=== PATIENT | male | born 1985 | race Caucasian/White ===

== ENCOUNTER → 2016-08-27 | Outpatient (CLI) | payer OTHER ==
[2016-08-27 13:37] LABS: BASO % 0.6 % (0.0-1.0); EOS # 0.4 K/mm3 (0.0-0.50); EOS % 7.4 % (0.0-3.0); LARGE UNSTAINED CELL # 0.1 K/mm3 (0.0-0.4); LARGE UNSTAINED CELL % 2.5 % (0.0-4.0); LYMPH # 2.2 K/mm3 (1.5-4.5); LYMPH % 36.7 % (24.0-44.0); MEAN CORPUSCULAR HEMOGLOBIN 29.5 pg (27.0-33.0); MEAN CORPUSCULAR HGB CONC 33.8 g/dl (32.0-36.5); MEAN CORPUSCULAR VOLUME 87.3 fl (80.0-96.0); MONO # 0.4 K/mm3 (0.0-0.8); MONO % 6.5 % (0.0-5.0); NEUTROPHILS # 2.6 K/mm3 (1.8-7.7); NEUTROPHILS % 46.4 % (36.0-66.0); PLATELET COUNT, AUTOMATED 208 k/mm3 (150-450); RED CELL DISTRIBUTION WIDTH 13.3 % (11.5-14.5); WHITE BLOOD COUNT 5.7 K/mm3 (4.0-10.0)
[2016-08-27 13:39] LABS: ALBUMIN/GLOBULIN RATIO 1.18 (1.00-1.93); ALKALINE PHOSPHATASE 122 U/L (45-117); ALT/SGPT 49 U/L (12-78); ANION GAP 7 MEQ/L (8-16); AST/SGOT 28 U/L (15-37); BILIRUBIN,TOTAL 0.3 MG/DL (0.2-1.0); BLOOD UREA NITROGEN 13 MG/DL (7-18); CARBON DIOXIDE LEVEL 26 MEQ/L (21-32); CHLORIDE LEVEL 107 MEQ/L (98-107); CREATININE FOR GFR 1.26 MG/DL (0.70-1.30); GLOMERULAR FILTRATION RATE > 60.0 (>60); GLUCOSE, FASTING 96 MG/DL (70-105); POTASSIUM SERUM 4.3 MEQ/L (3.5-5.1); SODIUM LEVEL 140 MEQ/L (136-145); TOTAL PROTEIN 7.4 GM/DL (6.4-8.2)
== END ==
LOC: M LAB 12:11
PROVIDERS: ATTEND Nurse Practitioner Family
DX: Z02.89 Encounter for other administrative examinations (principal)

== ENCOUNTER → 2016-10-02 | Outpatient (CLI) | payer OTHER ==
[2016-10-05 08:06] LABS: ALT 31 IU/L (0-55); GGT 54 IU/L (0-65); HAPTOGLOBIN 84 mg/dL (34-200); NECROINFLAM SCORE 0.13 (0.00-0.17); NECROINFLAMM GRADE A0-No activity (.); TOTAL BILIRUBIN 0.3 mg/dL (0.0-1.2)
[2016-10-07 00:30] LABS: HEPATITIS C QUANTITATION 192280 IU/mL (.); HEPATITIS C VIRUS GENOTYPE 3 (.)
== END ==
LOC: M WUC 12:30
PROVIDERS: ATTEND Nurse Practitioner Family
DX: B18.2 Chronic viral hepatitis C (principal); B16.9 Acute hepatitis B without delta-agent and without hepatic coma; B15.9 Hepatitis A without hepatic coma

== ENCOUNTER → 2016-10-30 | Outpatient (REF) | payer MEDICAID, OTHER ==
[2016-10-30 16:11] LABS: ALBUMIN 3.9 GM/DL (3.2-5.2); ALBUMIN/GLOBULIN RATIO 1.15 (1.00-1.93); ALKALINE PHOSPHATASE 100 U/L (45-117); ALT/SGPT 65 U/L (12-78); AST/SGOT 44 U/L (15-37); BILIRUBIN,DIRECT 0.1 MG/DL (0.0-0.2); BILIRUBIN,TOTAL 0.3 MG/DL (0.2-1.0); TOTAL PROTEIN 7.3 GM/DL (6.4-8.2)
[2016-10-31 10:16] LABS: HEPATITIS B SURFACE ANTIBODY POSITIVE (POSITIVE)
[2016-11-04 14:18] LABS: HEPATITIS C QUANTITATION 22580 IU/mL (.)
== END ==
LOC: M SFHCPLAZ 13:29
PROVIDERS: ATTEND Internal Medicine Infectious Disease
DX: B18.2 Chronic viral hepatitis C (principal)

== ENCOUNTER 2016-12-11 08:53 | Emergency (ER) | payer MEDICAID, OTHER ==
[~2016-12-11] VITALS: Ht 177.8 cm; Wt 77.2 kg
[2016-12-11] MEDS ORDERED: SUBO8MIS SL (09:08)
[2016-12-11] MEDS ORDERED: TRAZ-136 (09:08)
[2016-12-11] MEDS ORDERED: SERT-155 PO (09:08)
[2016-12-11] MEDS ORDERED: BUPR15TA (09:08)
[2016-12-11] MEDS ORDERED: KETOROLAC 60 MG/2 ML VIAL (J1885) IM ONE (09:45)
[2016-12-11 10:32] VITALS: BP 123/56
[2016-12-11] MEDS ORDERED: ZANA4TAB PO (10:34)
[2016-12-11] MEDS ORDERED: PRED20TA PO (10:34)
[2016-12-11] MEDS ORDERED: MOBI4TAB PO (10:34)
--- NOTE | 2016-12-11 13:57 | REP ---
Lumbar spine series: Five views. History: Trauma. Findings: Five views of the lumbar spine and demonstrate preserved vertebral body heights and normal alignment. No fracture or collapse is seen. Disc space narrowing at L4-5 is seen mild in degree. Pedicles and posterior elements are intact. No fracture or spondylolysis seen. No spondylolisthesis noted. Sacrum and SI joints are unremarkable. There is a bone island in the right iliac bone. Psoas margins are symmetric. Impression: Minimal narrowing of the L4-5 disc. Otherwise unremarkable lumbar spine radiographs. No fracture seen. Signed by Jack Saldana MD 12/11/2016 02:02 P
== END 2016-12-11 10:41 | disposition home or self-care (01) ==
LOC: M ED 08:53
DX: M54.41 Lumbago with sciatica, right side (principal); F11.10 Opioid abuse, uncomplicated; F17.200 Nicotine dependence, unspecified, uncomplicated; Z79.899 Other long term (current) drug therapy

== ENCOUNTER 2016-12-21 04:21 | Inpatient (IN) | payer OTHER ==
[~2016-12-21] VITALS: Ht 177.8 cm; Wt 72.8 kg
[2016-12-21] VITALS (7 sets, daily range): BP systolic 131–140; BP diastolic 63–78
[~2016-12-21 04:21] MED LIST: BUPR15TA; MOBI4TAB PO; PRED20TA PO; SERT-155 PO; SUBO8MIS SL; TRAZ-136; ZANA4TAB PO
[2016-12-21] MEDS ORDERED: EPCL1TAB PO (05:02)
[2016-12-21] MEDS ORDERED: NS 1,000 ML IV ONE (05:15)
[2016-12-21] MEDS ORDERED: ONDANSETRON 4MG/2ML VIAL (J2405) IV ONE (05:15)
[2016-12-21] MEDS ORDERED: KETOROLAC 30 MG/ML VIAL (J1885) IV ONE (05:15)
[2016-12-21 06:06] LABS: BASO # 0.1 K/mm3 (0.0-0.2); BASO % 0.6 % (0.0-1.0); EOS # 0.5 K/mm3 (0.0-0.50); EOS % 4.2 % (0.0-3.0); LARGE UNSTAINED CELL # 0.1 K/mm3 (0.0-0.4); LARGE UNSTAINED CELL % 0.9 % (0.0-4.0); LYMPH # 4.5 K/mm3 (1.5-4.5); LYMPH % 37.4 % (24.0-44.0); MEAN CORPUSCULAR HEMOGLOBIN 29.9 pg (27.0-33.0); MEAN CORPUSCULAR HGB CONC 34.7 g/dl (32.0-36.5); MEAN CORPUSCULAR VOLUME 86.2 fl (80.0-96.0); MONO # 0.6 K/mm3 (0.0-0.8); MONO % 5.1 % (0.0-5.0); NEUTROPHILS # 6.2 K/mm3 (1.8-7.7); NEUTROPHILS % 51.9 % (36.0-66.0); PLATELET COUNT, AUTOMATED 221 k/mm3 (150-450); RED CELL DISTRIBUTION WIDTH 13.2 % (11.5-14.5); WHITE BLOOD COUNT 11.8 K/mm3 (4.0-10.0)
[2016-12-21 06:16] LABS: ALBUMIN 3.6 GM/DL (3.2-5.2); ALBUMIN/GLOBULIN RATIO 1.13 (1.00-1.93); ALKALINE PHOSPHATASE 95 U/L (45-117); ALT/SGPT 33 U/L (12-78); ANION GAP 10 MEQ/L (8-16); AST/SGOT 26 U/L (15-37); BILIRUBIN,DIRECT 0.1 MG/DL (0.0-0.2); BILIRUBIN,TOTAL 0.5 MG/DL (0.2-1.0); BLOOD UREA NITROGEN 20 MG/DL (7-18); CALCIUM LEVEL 8.9 MG/DL (8.5-10.1); CARBON DIOXIDE LEVEL 23 MEQ/L (21-32); CHLORIDE LEVEL 102 MEQ/L (98-107); CREATININE FOR GFR 1.46 MG/DL (0.70-1.30); GLOMERULAR FILTRATION RATE > 60.0 (>60); GLUCOSE, FASTING 194 MG/DL (70-105); POTASSIUM SERUM 3.6 MEQ/L (3.5-5.1); SODIUM LEVEL 135 MEQ/L (136-145); TOTAL PROTEIN 6.8 GM/DL (6.4-8.2)
[2016-12-21] MEDS ORDERED: ISOVUE-370 76% 100ML VIAL (Q9967) As Ordered ONE (06:24)
--- NOTE | 2016-12-21 07:00 | REPUSA ---
CLINICAL HISTORY: Abdominal pain. TECHNIQUE: Multiple axial, sagittal and coronal CT images were obtained through the abdomen and pelvi s after administration of intravenous contrast material. COMMENTS: Diffuse thickening of the small bowel. Diffuse thickening of the colon. Findings are more prominent in the mid aspect of the transverse colon which is dilated containing fec al residue. Small amount of free fluid in the abdomen and pelvis with diffuse mesenteric fat stranding. Moderate amount of pneumoperitoneum. The liver is of uniform attenuation without mass or defect. There is no intra or extrahepatic biliary ductal dilatation. The spleen is normal. The gallbladder is within normal limits. The pancreas is of normal contour and attenuation characteristics. There is no evidence of adrenal mass. Both kidneys demonstrate prompt and equal nephrograms. The kidneys are normal in size, shape and conf iguration. There is no evidence of renal or ureteral mass. No renal or ureteral calculi are identifie d. There is no hydroureter or hydronephrosis. No evidence for appendicitis. No evidence for small or large bowel obstruction. There is no evidence of intrinsic or extrinsic bladder mass. Diffuse thickening of the wall of the bladder. Images of the lung bases show no evidence of pleural or parenchymal mass. There are no pleural effusi ons. The bony structures are free of lytic or blastic lesions. IMPRESSION: Moderate amount of pneumoperitoneum suggestive of bowel perforation which could be at the level of th e mid aspect of the transverse colon. Diffuse thickening of the small and large bowels. Diffuse inflammatory mesenteric fat stranding and thickening. Small amount of free fluid in the abdomen and pelvis. Thank you for your kind referral of this patient.
[2016-12-21] MEDS ORDERED: PIPERACILLIN/TAZOBACTAM SOD 3.375 GM in D5W MINI-BAG PLUS 50 ML IV ONE (07:15)
[2016-12-21] MEDS: HYDROmorphone HCL 1 MG/ML SYRINGE (J1170) IV PRN ×2 (07:16→07:44)
[2016-12-21] MEDS ORDERED: NS 1,000 ML IV SCH (07:30)
[2016-12-21 07:35] LABS: INR 0.99
[2016-12-21] MEDS ORDERED: MELO7.5T7 PO (07:35)
[2016-12-21] MEDS ORDERED: ZANA4TAB PO (07:35)
[2016-12-21] MEDS ORDERED: HYDROmorphone HCL 1 MG/ML SYRINGE (J1170) IV ONE (08:15)
[2016-12-21] MEDS ORDERED: LR 1,000 ML IV SCH ×2 (09:30→13:15)
[2016-12-21] MEDS ORDERED: ERTAPENEM SODIUM 1 GM in NS MINI-BAG PLUS 50 ML IV PRN (09:30)
[2016-12-21] MEDS ORDERED: PANTOPRAZOLE 40MG INJ (PROTONIX) (C9113) IV ONE (09:30)
[2016-12-21] MEDS ORDERED: ERTAPENEM 1 GM INJ (INVanz) (J1335) As Ordered ONE (09:56)
[2016-12-21] MEDS ORDERED: LIDOCAINE 1% SDV INJ 30 ML VIAL As Ordered ONE (09:56)
[2016-12-21] MEDS ORDERED: BUPIVACAINE HCL 0.25% 30 ML VIAL As Ordered ONE (09:56)
[2016-12-21] MEDS ORDERED: GLYCOPYRROLATE INJ 0.2 MG/ML 2 ML VIAL As Ordered ONE (11:02)
[2016-12-21] MEDS ORDERED: dexameTHASONE 4 MG/ML 1ML VIAL (J1100) As Ordered ONE (11:02)
[2016-12-21] MEDS ORDERED: PROPOFOL 200 MG/20 ML VIAL As Ordered ONE ×2 (11:02→13:01)
[2016-12-21] MEDS ORDERED: NEOSTIGMINE 1MG/ML 5 ML SYRINGE (J2710) As Ordered ONE (11:02)
[2016-12-21] MEDS ORDERED: fentaNYL 250 MCG/5 ML INJECTION (J3010) As Ordered ONE (11:02)
[2016-12-21] MEDS ORDERED: ONDANSETRON 4MG/2ML VIAL (J2405) As Ordered ONE (11:02)
[2016-12-21] MEDS ORDERED: KETOROLAC 60 MG/2 ML VIAL (J1885) As Ordered ONE (11:02)
[2016-12-21] MEDS ORDERED: LIDOCAINE 2% INJ 100 MG/5 ML SDV (FOR ANES.) As Ordered ONE (11:02)
[2016-12-21] MEDS ORDERED: MIDAZOLAM INJ 2 MG/2 ML VIAL (J2250) As Ordered ONE (11:02)
[2016-12-21] MEDS ORDERED: ROCURONIUM BROMIDE 50 MG/5 ML VIAL/SYRINGE As Ordered ONE (11:02)
[2016-12-21] MEDS ORDERED: fentaNYL 100 MCG/2 ML INJECTION (J3010) As Ordered ONE ×2 (11:59→13:10)
[2016-12-21] MEDS ORDERED: ACETAMINOPHEN TAB 650MG DOSE (2X325MG) PO PRN (12:45)
[2016-12-21] MEDS ORDERED: NORCO, ANEXSIA 5/325MG TABLET (HYDROcodone/ACETAMINOPHEN) PO PRN ×2 (12:45)
[2016-12-21] MEDS ORDERED: ONDANSETRON 4MG/2ML VIAL (J2405) IV PRN ×2 (12:45→13:15)
[2016-12-21] MEDS ORDERED: MEPERIDINE INJ 25 MG/ML VIAL (J2175) As Ordered ONE (13:09)
[2016-12-21] MEDS: MEPERIDINE INJ 25 MG/ML VIAL (J2175) IV PRN ×2 (13:14→13:18)
[2016-12-21] MEDS ORDERED: METOCLOPRAMIDE INJ 10MG/2ML VIAL (J2765) IV PRN (13:15)
[2016-12-21] MEDS ORDERED: fentaNYL 100 MCG/2 ML INJECTION (J3010) IV PRN (13:15)
[2016-12-21] MEDS: LR 1,000 ML IV SCH ×3 (14:00→22:40)
[2016-12-21] MEDS: MORPHINE 4 MG/ML 1ML SYRINGE IV PRN ×2 (18:00→22:01)
[2016-12-21] MEDS: SENOKOT S TAB PO SCH ×2 (21:00→22:38)
[2016-12-21] MEDS: PANTOPRAZOLE 40MG INJ (PROTONIX) (C9113) IV SCH (22:06)
[2016-12-21] MEDS ORDERED: traZODone 100 MG TAB PO PRN (22:30)
[2016-12-22] VITALS (9 sets, daily range): BP systolic 127–142; BP diastolic 63–76
[2016-12-22] MEDS: MORPHINE 4 MG/ML 1ML SYRINGE IV PRN ×5 (01:30→13:45)
[2016-12-22 06:16] LABS: BASO % 0.1 % (0.0-1.0); EOS % 0.3 % (0.0-3.0); LARGE UNSTAINED CELL # 0.2 K/mm3 (0.0-0.4); LYMPH # 1.8 K/mm3 (1.5-4.5); LYMPH % 11.9 % (24.0-44.0); MEAN CORPUSCULAR HEMOGLOBIN 30.9 pg (27.0-33.0); MEAN CORPUSCULAR HGB CONC 34.7 g/dl (32.0-36.5); MEAN CORPUSCULAR VOLUME 89.2 fl (80.0-96.0); MONO # 1.1 K/mm3 (0.0-0.8); MONO % 7.6 % (0.0-5.0); NEUTROPHILS # 11.2 K/mm3 (1.8-7.7); NEUTROPHILS % 79.1 % (36.0-66.0); PLATELET COUNT, AUTOMATED 172 k/mm3 (150-450); RED CELL DISTRIBUTION WIDTH 13.5 % (11.5-14.5); WHITE BLOOD COUNT 14.2 K/mm3 (4.0-10.0)
[2016-12-22 06:27] LABS: ANION GAP 7 MEQ/L (8-16); BLOOD UREA NITROGEN 13 MG/DL (7-18); CALCIUM LEVEL 8.5 MG/DL (8.5-10.1); CARBON DIOXIDE LEVEL 26 MEQ/L (21-32); CHLORIDE LEVEL 102 MEQ/L (98-107); CREATININE FOR GFR 1.21 MG/DL (0.70-1.30); GLOMERULAR FILTRATION RATE > 60.0 (>60); GLUCOSE, FASTING 98 MG/DL (70-105); POTASSIUM SERUM 4.4 MEQ/L (3.5-5.1); SODIUM LEVEL 135 MEQ/L (136-145)
[2016-12-22] MEDS: SENOKOT S TAB PO SCH ×2 (08:22→21:00)
[2016-12-22] MEDS: PANTOPRAZOLE 40MG INJ (PROTONIX) (C9113) IV SCH ×2 (08:22→22:34)
[2016-12-22] MEDS: ENOXAPARIN 40 MG/0.4 ML SYRINGE (J1650) SC SCH (08:22)
[2016-12-22] MEDS ORDERED: SUCRALFATE 1 GM TAB PO SCH (09:00)
[2016-12-22] MEDS: LR 1,000 ML IV SCH ×3 (09:46→22:34)
[2016-12-22] MEDS: ERTAPENEM SODIUM 1 GM in NS MINI-BAG PLUS 50 ML IV SCH (09:46)
[2016-12-22] MEDS ORDERED: ERTAPENEM SODIUM 1 GM in NS MINI-BAG PLUS 50 ML IV SCH (10:00)
[2016-12-22] MEDS: SUCRALFATE SUSP 1GM/10ML UD PO SCH ×4 (10:44→22:33)
[2016-12-22] MEDS ORDERED: NS 1,000 ML IV SCH (15:24)
[2016-12-22] MEDS ORDERED: ONDANSETRON 4MG/2ML VIAL (J2405) IV PRN ×2 (15:30→20:15)
[2016-12-22] MEDS ORDERED: NALOXONE INJ 0.4 MG/1 ML VIAL (J2310) IV PRN (15:30)
[2016-12-22] MEDS ORDERED: NALBUPHINE HCL 10 MG/ML AMP (J2300) IV PRN (15:30)
[2016-12-22] MEDS ORDERED: EPIDURAL/PCA KEYS XX PRN (15:30)
--- NOTE | 2016-12-22 15:31 | IPNPDOC ---
Subjective General Date/Time Seen The patient was seen on 12/22/16 at 15:27. Subject Chief Complaint/History The patient is a 31-year-old male admitted with a reason for visit of Ruptured Ulcer. I was called by the nurses saying hes very uncomfortable and the pain meds are not working for him. Thus he is examined at the bedside. Current Medications Current Medications Current Medications Acetaminophen (Tylenol Tab) 650 mg Q4HP PRN PO MILD PAIN or TEMP > 101; Start 12/21/16 at 12:45; Stop 01/20/17 at 12:44 Acetaminophen/ Hydrocodone Bitart ([place], [place] 5/325) 1 tab Q4HP PRN PO MODERATE PAIN (PS 5-7); Start 12/21/16 at 12:45; Stop 12/28/16 at 12:44 Acetaminophen/ Hydrocodone Bitart ([place], [place] 5/325) 2 tab Q6HP PRN PO SEVERE PAIN (PS 8-10) Last administered on 12/22/16 11:54; Start 12/21/16 at 12 :45; Stop 12/28/16 at 12:44 Enoxaparin Sodium (Lovenox) 40 mg DAILY SC Last administered on 12/22/16 08:22 ; Start 12/22/16 at 09:00; Stop 12/27/16 at 08:59 Ertapenem 1 gm/ Sodium Chloride 50 ml @ 100 mls/hr ONCE PRN IV PREOP; Start at 09:30; Stop 12/21/16 at 12:44; Status DC Ertapenem 1 gm/ Sodium Chloride 50 ml @ 100 mls/hr Q24H IV ; Start 12/22/16 at 10:00; Stop 12/22/16 at 10:00; Status DC Ertapenem 1 gm/ Sodium Chloride 50 ml @ 100 mls/hr Q24H IV Last administered on 12/22/16 09:46; Start 12/22/16 at 10:00; Stop 12/29/16 at 09:59 Fentanyl Citrate (Sublimaze) 25 mcg Q5MP PRN IV MODERATE PAIN (PS 4-7); Start 12/21/16 at 13:15; Stop 12/21/16 at 14:15; Status DC Home Med (Med Rec Complete!) ASDIRECTED XX ; Start 12/21/16 at 07:45; Stop at 07:45; Status DC Hydromorphone HCl (Dilaudid) 0.5 mg Q30M PRN IV MODERATE PAIN (PS 5-7) Last administered on 12/21/16 07:44; Start 12/21/16 at 07:15; Stop 12/21/16 at 07:44 ; Status DC Lactated Ringer's 1,000 ml @ 100 mls/hr Q10H IV ; Start 12/21/16 at 13:15; Stop 12/21/16 at 14:15; Status DC Lactated Ringer's 1,000 ml @ 150 mls/hr Q6H40M IV ; Start 12/21/16 at 09:30; Stop 12/21/16 at 12:45; Status DC Lactated Ringer's 1,000 ml @ 150 mls/hr Q6H40M IV Last administered on 09:46; Start 12/21/16 at 12:38; Stop 01/20/17 at 12:37 Meperidine HCl (Demerol) 12.5 mg Q5MP PRN IV SHIVERING Last administered on 13:18; Start 12/21/16 at 13:15; Stop 12/21/16 at 14:15; Status DC Metoclopramide HCl (REGLAN INJection) 10 mg Q6HP PRN IV NAUSEA OR VOMITING; Start 12/21/16 at 13:15; Stop 12/21/16 at 14:15; Status DC Morphine Sulfate (Morphine Sulfate Inj) 4 mg Q2HP PRN IV SEVERE PAIN (PS 8-10) Last administered on 12/22/16 13:45; Start 12/21/16 at 12:45; Stop 12/28/16 at 12:44 Ondansetron HCl (ZOFRAN INJection) 4 mg Q4HP PRN IV NAUSEA OR VOMITING; Start 12/21/16 at 13:15; Stop 12/21/16 at 14:15; Status DC Ondansetron HCl (ZOFRAN INJection) 4 mg Q6HP PRN IV NAUSEA OR VOMITING; Start 12/21/16 at 12:45; Stop 01/20/17 at 12:44 Pantoprazole Sodium (Protonix) 40 mg Q12H IV Last administered on 12/22/16 08: 22; Start 12/21/16 at 21:00; Stop 01/20/17 at 20:59 Senna/Docusate Sodium (Senokot S) 1 tab BID PO Last administered on 12/22/16 08:22; Start 12/21/16 at 21:00; Stop 01/20/17 at 20:59 Sodium Chloride 1,000 ml @ 200 mls/hr Q5H IV Last administered on 12/21/16 07 :30; Start 12/21/16 at 07:30; Stop 12/21/16 at 09:19; Status DC Sucralfate (Carafate Suspension) 1 gm QID PO Last administered on 12/22/16 13: 45; Start 12/22/16 at 09:00; Stop 01/21/17 at 08:59 Sucralfate (Carafate) 1 gm QID PO ; Start 12/22/16 at 09:00; Stop 12/22/16 at 10 :23; Status DC Trazodone HCl (Desyrel) 100 mg QHSP PRN PO INSOMNIA Last administered on 22:38; Start 12/21/16 at 22:30; Stop 01/20/17 at 22:29 Allergies Coded Allergies: No Known Allergies (Unverified , 12/11/16) Objective Physical Examination Examination GENERAL APPEARANCE:patient appears uncomfortable, diaphoretic. SKIN: warm and dry. HEENT: Normocephalic, atraumatic. [place] palpebral conjunctiva, anicteric sclerae. Lips and mucosa appear moist.NGT in place NECK: Supple, no thyromegaly. No obvious jugular venous distention. LUNGS: Clear to auscultation bilaterally. No wheezing appreciated. HEART: No chest wall abnormalities. Regular rate and rhythm with no murmurs appreciated. ABDOMEN: Abdomen is minimally distended, soft, tender on epigastric area, softer on lower abdomen. KAREN drain is putting out light bile colored liquid. EXTREMITIES: Extremities have no deformities. No edema identified. Vital Signs Vital Signs Date Time Temp Pulse Resp B/P (MAP) Pulse Ox O2 Delivery O2 Flow Rate FiO2 12/22/16 14:00 98.5 63 16 129/63 (85) 95 Room Air I&Os I&O- Last 24 Hours up to 6 AM 12/22/16 06:00 Intake Total 5351 ml Output Total 1590 ml Balance 3761 ml Laboratory Data Labs 24H Laboratory Tests 2 12/22/16 05:51: White Blood Count 14.2H, Red Blood Count 4.85, Hemoglobin 15.0, Hematocrit 43.3 , Mean Corpuscular Volume 89.2, Mean Corpuscular Hemoglobin 30.9, Mean Corpuscular Hemoglobin Concent 34.7, Red Cell Distribution Width 13.5, Platelet Count 172, Neutrophils (%) (Auto) 79.1H, Lymphocytes (%) (Auto) 11.9L, Monocytes (%) (Auto) 7.6H, Eosinophils (%) (Auto) 0.3, Basophils (%) (Auto) 0.1 , Neutrophils # (Auto) 11.2H, Lymphocytes # (Auto) 1.8, Monocytes # (Auto) 1.1H , Eosinophils # (Auto) 0.0, Basophils # (Auto) 0.0, Large Unclassified Cells % 1.0, Large Unclassified Cells # 0.2, Anion Gap 7L, Glomerular Filtration Rate > 60.0, Blood Urea Nitrogen 13, Creatinine 1.21, Sodium Level 135L, Potassium Level 4.4#, Chloride Level 102, Carbon Dioxide Level 26, Calcium Level 8.5 CBC/BMP Laboratory Tests 12/22/16 05:51 Red Blood Count 4.85, Mean Corpuscular Volume 89.2, Mean Corpuscular Hemoglobin 30.9, Mean Corpuscular Hemoglobin Concent 34.7, Red Cell Distribution Width 13.5 , Neutrophils (%) (Auto) 79.1 H, Lymphocytes (%) (Auto) 11.9 L, Monocytes (%) ( Auto) 7.6 H, Eosinophils (%) (Auto) 0.3, Basophils (%) (Auto) 0.1, Neutrophils # (Auto) 11.2 H, Lymphocytes # (Auto) 1.8, Monocytes # (Auto) 1.1 H, Eosinophils # (Auto) 0.0, Basophils # (Auto) 0.0, Calcium Level 8.5 Impression Perforated duodenal bulb ulcer POD1 laparoscopic omental patch repair The issue is whether he has inadequate pain control andrews of his background of suboxone use or the repair is leaking given that the drainage was serosanguenous last night and has now a green bile stained appearance. He did have a lot of bile leaking out of the ulcer yesterday so this could just be leftover fluid. I think it is best to bring him back to the operating room. We will do a diagnostic lap and if the repair is undone would convert to an open repair of the perforated ulcer. Consent obtained from the patient. Plan / VTE VTE Prophylaxis Ordered?: Yes NICK ENGLE MD Dec 22, 2016 15:31
[2016-12-22] MEDS: MORPHINE 1MG/ML IN 0.9% NACL 100ML IV BAG IV PRN ×2 (15:55→20:05)
--- NOTE | 2016-12-22 15:56 | HPEPDOC ---
General Surgery H&P Date of Admission Dec 21, 2016 at 08:44 History and Physical CHIEF COMPLAINT: abdominal pain HISTORY OF PRESENT ILLNESS: Patient is a 31 y/o male who presented himself to the ED at about 430 am this morning. He got awakened at approximately 4 am this morning with a sudden onset diffuse abdominal pain worse at the periumbilical area. He reports mild epigastric discomfort the night prior. He has been taking meloxicam for the past month for his back pain. Patient has no history of peptic ulcer disease. He is on Suboxone from previous history of heroine use. Patient is notably uncomfortable while in the emergency room. CT of the abdomen and pelvis was done as part of workup showing moderate amount of pneumoperitoneum. I was asked to see the patient. ALLERGIES: Please see below. HOME MEDICATIONS: Please see below. PAST MEDICAL HISTORY: Hepatitis C former heroin use depression back pain PAST SURGICAL HISTORY: none PERSONAL/SOCIAL HISTORY: [Reports smoking 1 pack per day. occasional alcohol use. prior history of heroin use, now on suboxone REVIEW OF SYSTEMS: GENERAL: Symptoms were of acute nature. Patient denies any prolonged history of abdominal discomfort, prior history of ulcer disease. Patient denies any ongoing weight loss. HEENT: Denies blurred vision and double vision. Denies ear symptoms. Denies hoarseness. NECK: Denies any neck pain. CARDIOVASCULAR: Denies chest pain and palpitations. MUSCULOSKELETAL: Denies arthralgias, back pain and thrombophlebitis. SKIN: Denies rash. NEUROLOGIC: Denies headache, stroke and transient ischemic attack. PSYCHIATRIC: Denies anxiety and depression. ENDOCRINE: Denies thyroid disease. HEMATOLOGY/ONCOLOGY: Denies any bleeding or clotting disorder. HEART: Denies any chest pains, palpitations, paroxysmal dyspnea, orthopnea. PULMONARY: Denies chronic cough, dyspnea and wheezing. GASTROINTESTINAL: Denies rectal bleeding, family history of colon cancer, constipation, diarrhea, dysphagia, heartburn and jaundice. GENITOURINARY: Denies dysuria, frequency, hematuria and nocturia. ENDOCRINE: Denies polydipsia, polyphagia, polyuria, heat or cold intolerance. INFECTIOUS: Denies any recent upper respiratory tract infection, UTI, need for use of antibiotics. NUTRITION: Reports good appetite. PHYSICAL EXAMINATION: VITAL SIGNS: Please see below. GENERAL APPEARANCE: Patient seen at bedside, appears as a uncomfortable. Awake, alert, oriented. HEENT: Normocephalic, atraumatic. [place] palpebral conjunctivae. Anicteric sclerae. Lips dry. CHEST: No chest wall abnormalities. Normal respiratory motion/effort. NECK: Supple. No thyromegaly. No lymphadenopathies. LUNGS: Lung sounds are clear to auscultation bilaterally. No wheezing appreciated. HEART: No chest wall abnormalities. Heart rate and rhythm are regular with no murmurs. ABDOMEN: Abdomen is flat, soft, mildly distended, tympanitic to percussion, washboard rigidity of the whole abdomen with rebound tenderness. No masses appreciated. SKIN: Warm, moist. EXTREMITIES: Extremities have no deformities. No edema identified. NEUROLOGICAL: . ANCILLARIES: . LABORATORY DATA: Please see below. MICROBIOLOGY: Please see below. IMAGING: . IMPRESSION AND PLAN: Perforated viscus with generalized peritonitis previous drug use on suboxone hepatitis C Patient has been counseled on need for surgery. I suspect he has perforated peptic ulcer (stomach or duodenum) given history of NSAID use. He is mildly tachycardic but hemodynamically stable. He has been given a dose of zosyn in the ED. I will start him on Invanz perioperatively. We plan to perform diagnostic laparoscopy first but may need a full abdominal exploration. He has been counseled of the possiblity of needing bowel resection even a temporary colostomy. Further recommendations to follow after surgery. Vital Signs Vital Signs Date Time Temp Pulse Resp B/P (MAP) Pulse Ox O2 Delivery O2 Flow Rate FiO2 12/21/16 08:28 20 100 Room Air 12/21/16 07:36 70 12/21/16 07:35 148/84 (105) 12/21/16 04:26 97.0 Laboratory Data Labs 24H Laboratory Tests 2 12/21/16 05:37: White Blood Count 11.8H, Red Blood Count 5.25, Hemoglobin 15.7, Hematocrit 45.3 , Mean Corpuscular Volume 86.2, Mean Corpuscular Hemoglobin 29.9, Mean Corpuscular Hemoglobin Concent 34.7, Red Cell Distribution Width 13.2, Platelet Count 221, Neutrophils (%) (Auto) 51.9, Lymphocytes (%) (Auto) 37.4, Monocytes ( %) (Auto) 5.1H, Eosinophils (%) (Auto) 4.2H, Basophils (%) (Auto) 0.6, Neutrophils # (Auto) 6.2, Lymphocytes # (Auto) 4.5, Monocytes # (Auto) 0.6, Eosinophils # (Auto) 0.5, Basophils # (Auto) 0.1, Large Unclassified Cells % 0.9 , Large Unclassified Cells # 0.1, Prothrombin Time 13.2, Prothromb Time International Ratio 0.99, Activated Partial Thromboplast Time 30.0, Anion Gap 10 , Glomerular Filtration Rate > 60.0, Calcium Level 8.9, Aspartate Amino Transf ( AST/SGOT) 26, Alanine Aminotransferase (ALT/SGPT) 33, Alkaline Phosphatase 95, Total Bilirubin 0.5, Direct Bilirubin 0.1, Total Protein 6.8, Albumin 3.6, Albumin/Globulin Ratio 1.13, Lipase 161 CBC/BMP Laboratory Tests 12/21/16 05:37 Red Blood Count 5.25, Mean Corpuscular Volume 86.2, Mean Corpuscular Hemoglobin 29.9, Mean Corpuscular Hemoglobin Concent 34.7, Red Cell Distribution Width 13.2 , Neutrophils (%) (Auto) 51.9, Lymphocytes (%) (Auto) 37.4, Monocytes (%) (Auto ) 5.1 H, Eosinophils (%) (Auto) 4.2 H, Basophils (%) (Auto) 0.6, Neutrophils # ( Auto) 6.2, Lymphocytes # (Auto) 4.5, Monocytes # (Auto) 0.6, Eosinophils # (Auto ) 0.5, Basophils # (Auto) 0.1 Home Medications Scheduled (Sertraline HCl) 50 Mg Tab, 50 MG PO DAILY, (Reported) Buprenorphine/Naloxone (Suboxone 8-2 mg) 1 Mis Mis, 1 MIS SL DAILY, (Reported) Meloxicam (Meloxicam) 7.5 Mg Tab, 7.5 MG PO DAILY, (Reported) Sofosbuvir/Velpatasvir (Epclusa 400-100 mg) 1 Tab Tab, 1 TAB PO DAILY, (Reported ) Scheduled PRN Tizanidine Hydrochloride (Zanaflex) 4 Mg Tab, 1 TAB PO Q8H PRN for MUSCLE SPASMS , (Reported) Allergies Coded Allergies: No Known Allergies (Unverified , 12/11/16) NICK ENGLE MD Dec 21, 2016 09:08
--- NOTE | 2016-12-22 16:19 | ROOPDOC ---
[facility] Report Of Operation Report of Operation DATE OF PROCEDURE: 12/21/16 PREPROCEDURE DIAGNOSES: Perforated viscus (pneumoperitoneum) POSTPROCEDURE DIAGNOSES: Perforated duodenal bulb ulcer. PROCEDURE: Diagnostic laparoscopy, laparoscopic omental patch repair (Tono patch) of duodenal bulb ulcer. SURGEON: Ruy Osborne MD SUPERVISOR [employer]SEMBLY: NAN Olvera ANESTHESIA: General ESTIMATED BLOOD LOSS: Approximately 20 mL. COMPLICATIONS: none REMARKS: Perforation noted and 60 anterior/ventral portion of the duodenal bulb just after the pyloric ring with large amount of bile draining into the whole of the abdomen. PROCEDURE NOTE: This is a 31-year-old healthy male patient with prior history of heroine use and Suboxone and recently has been taking meloxicam back pain who presented himself to the emergency room with sudden onset of severe epigastric pain awoke him up from sleep and found to have evidence for pneumoperitoneum. DESCRIPTION OF PROCEDURE: . Patient was given a dose of Invanz preoperatively. He was brought to the operating room placed supine on the table. Compression boots placed on his lower extremities were DVT prophylaxis. General endotracheal anesthesia started. Nasogastric tube was placed. Placement was later confirmed and adjusted during the procedure. He is abdomen was then prepped and draped in the usual sterile fashion. Surgical timeout was performed prior to making the incision. Entry to the abdomen done through a small incision at the left upper quadrant subcostal area. A Veress needle was inserted. After confirming intra-abdominal position, CO2 insufflation was started to pressure 15 mmHg. Using the same incision a 5 mm Visiport was placed under direct vision of laparoscope. He was placed on a steep reverse Trendelenburg position. On entry it was immediately noted a large amount of bile-colored fluid in the whole of the abdomen with associated inflammatory changes at the peritoneum and surrounding structures including the omentum at the right upper quadrant of the abdomen. After irrigating the abdomen and suctioning most of the fluid that we saw. 2 other working ports were placed at the umbilical site as well as at the right upper quadrant area. Following the bile, a small well formed perforation with minimal exudate was noted just after the pyloric ring at the duodenal bulb. The inflammatory adhesions associated with this was released with Harmonic scalpel. A fourth working port was placed at the left lower quadrant area. The distal stomach was grasped and pulled down to further expose the ulcer and perforation. 3 silk sutures were placed through the ulcer. We harvested a small tongue of omentum with the Harmonic scalpel and delivered it over the sutures. While holding the omentum over the perforation the previously placed silk sutures were tied off to the ulcer hole. We again irrigated the abdomen and check if there is any further drainage from the perforation. This seems to be holding accordingly. I asked anesthesia to blow some air into the stomach through the nasogastric tube and this was tested underwater and no leakage was noted. I then placed a 10 flat KAREN drain was left in place coming close to the repair site. The abdomen was then deflated and all ports were removed. The drain was sutured in place and the rest of the incisions closed with 4-0 Monocryl in subcuticular fashion. Steri-Strips and gauze dressings and used. Patient is completely awake and extubated and brought to recovery room stable condition NICK OSBORNE MD Dec 22, 2016 16:19
[2016-12-22] MEDS ORDERED: BUPIVACAINE/EPIN 0.25% 30 ML VIAL As Ordered ONE (16:45)
[2016-12-22] MEDS ORDERED: LIDOCAINE 1% SDV INJ 30 ML VIAL As Ordered ONE (16:45)
[2016-12-22] MEDS ORDERED: BUPIVACAINE HCL 0.25% 30 ML VIAL As Ordered ONE (17:09)
[2016-12-22] MEDS ORDERED: SUCCINYLCHOLINE 100 MG/5 ML SYRINGE (J0330) As Ordered ONE (17:14)
[2016-12-22] MEDS ORDERED: MIDAZOLAM INJ 2 MG/2 ML VIAL (J2250) As Ordered ONE (17:52)
[2016-12-22] MEDS ORDERED: fentaNYL 250 MCG/5 ML INJECTION (J3010) As Ordered ONE (17:52)
[2016-12-22] MEDS ORDERED: PROPOFOL 500 MG/50 ML VIAL As Ordered ONE ×2 (17:52→19:06)
[2016-12-22] MEDS ORDERED: NEOSTIGMINE 1MG/ML 5 ML SYRINGE (J2710) As Ordered ONE (19:02)
[2016-12-22] MEDS ORDERED: GLYCOPYRROLATE INJ 0.2 MG/ML 2 ML VIAL As Ordered ONE (19:02)
[2016-12-22] MEDS ORDERED: PROPOFOL 200 MG/20 ML VIAL As Ordered ONE (19:06)
[2016-12-22] MEDS ORDERED: HYDROmorphone HCL 2 MG/ML 1ML VIAL (J1170) As Ordered ONE (19:10)
[2016-12-22] MEDS ORDERED: DESFLURANE 240 ML INHALANT As Ordered ONE (19:17)
--- NOTE | 2016-12-22 19:37 | ROOPDOC ---
[facility] Report Of Operation Report of Operation DATE OF PROCEDURE: 12/22/16 PREPROCEDURE DIAGNOSES: perforated duodenal bulb ulcer . POSTPROCEDURE DIAGNOSES: Same, leakage around previous repair. PROCEDURE: Diagnostic Laparoscocopy converted to Exploratory laparotomy Take-down and Re-do of omental patch repair of perforated ulcer. SURGEON: Ruy Osborne MD GROCERY CHECKER: NAN Olvera ANESTHESIA: general. ESTIMATED BLOOD LOSS: Approximately 40 mL. COMPLICATIONS: none REMARKS: On diagnostic laparoscopy, inflamed omentum found scattered on the right upper abdomen. There is some thin bile-stained fluid at the perihepatic area and along the site of repair. The omental patch is still attached to the perforation but I noted some leakage around the patch when the stomach is insufflated. PROCEDURE NOTE: Patient had laparoscopic omental patch repair of a perforated ulcer and was noted to be in much more pain today and bile stained fluid from his drain. He was brought to the or with leakage noted around the omental patch that was placed for repair. DESCRIPTION OF PROCEDURE: Patient has been receiving Invanz 1 g IV daily for previously diagnosed duodenal perforation most likely NSAID induced ulcer. He was brought to the operating room and laid supine in the table. Compression boots were placed on both lower extremities for DVT prophylaxis. General endotracheal anesthesia started. He has a nasogastric tube in place. A Coates catheter was placed for urine output monitoring. The previously placed KAREN drain was removed. His abdomen was prepped and draped in the usual sterile fashion. Surgical timeout was performed prior to start of the incision. Using the previous ports. This was opened up with hemostats. On a controlled fashion 5 mm port was placed at the previous umbilical port site. CO2 insufflation and started to pressure of 15 mmHg. A 5 mm 30 laparoscope was placed diagnostic laparoscopy was performed. Thin bile was found along the perihepatic area and at the area of duodenal perforation. I asked anesthesia to insufflate the stomach and there was some leakage around the edges of the omental patch that was placed for the repair though this still remained intact with some expected inflammatory reaction from the bile exposure. At this point I decided to now converted to open exploration. An upper midline vertical incision was created from the epigastric area down to just level of the umbilicus this was deepened through the anterior fascia which was opened up starting at the umbilical port site. A controlled fashion the whole off the fascia was opened up throughout the length of the incision. A Alon retractor was placed for exposure. He was placed on a steep reverse trendelenburg position to allow for better visualization. The previous omental patch was removed. Again examine the site of perforation. Looking in it at this point it seems the perforation is closer to the insertion of the common bile duct up towards the end of apex of the duodenal C-loop curvature superiorly at the antimesenteric side, closer to the second portion of the duodenum superiorly. The tissue edges were debrided. 3 silk sutures were placed through the perforation and this time around I tied off the sutures. I again tested the closure by asking anesthesia to insufflate the stomach and tested the closure under water and no bubbling was noted. I then examined the rest of the abdomen suctioning pockets of fluid over the left upper quadrant and the right gutter. I did not see any evidence of other sites of possible perforation. After checking again for integrity of the repair I harvested a new site of the omentum where it is thicker. This was placed into the repair site and tied off with the previously placed silk sutures. This was again tested under water. The edges of the omental patch was then sealed with fibrin glue. I placed a 19 round Wilian drain at the previous drain site and down to the Morison's pouch slightly not touching our repair. The abdomen was then closed. Fascia was closed with a continuous suture of 1 looped PDS. The skins were closed with radha. The drains were sutured in place. Previous port sites were also closed with radha. The Coates catheter was removed. Patient was awakened and extubated and brought to the recovery room in stable condition NICK OSBORNE MD Dec 22, 2016 19:37
[2016-12-22] MEDS: fentaNYL 100 MCG/2 ML INJECTION (J3010) IV PRN ×4 (19:45→20:00)
[2016-12-22] MEDS ORDERED: fentaNYL 100 MCG/2 ML INJECTION (J3010) As Ordered ONE (19:45)
[2016-12-22] MEDS ORDERED: MORPHINE 1MG/ML IN 0.9% NACL 100ML IV BAG As Ordered ONE (19:55)
[2016-12-22] MEDS ORDERED: LR 1,000 ML IV SCH (20:15)
[2016-12-23] VITALS (7 sets, daily range): BP systolic 131–146; BP diastolic 67–80
[2016-12-23] MEDS: LR 1,000 ML IV SCH ×3 (04:10→17:30)
[2016-12-23 06:09] LABS: BASO % 0.2 % (0.0-1.0); EOS # 0.2 K/mm3 (0.0-0.50); EOS % 1.3 % (0.0-3.0); LARGE UNSTAINED CELL # 0.1 K/mm3 (0.0-0.4); LARGE UNSTAINED CELL % 0.8 % (0.0-4.0); LYMPH # 1.4 K/mm3 (1.5-4.5); LYMPH % 11.1 % (24.0-44.0); MEAN CORPUSCULAR HEMOGLOBIN 30.8 pg (27.0-33.0); MEAN CORPUSCULAR HGB CONC 34.5 g/dl (32.0-36.5); MEAN CORPUSCULAR VOLUME 89.2 fl (80.0-96.0); MONO # 0.7 K/mm3 (0.0-0.8); MONO % 6.1 % (0.0-5.0); NEUTROPHILS # 9.6 K/mm3 (1.8-7.7); NEUTROPHILS % 80.5 % (36.0-66.0); PLATELET COUNT, AUTOMATED 173 k/mm3 (150-450); RED CELL DISTRIBUTION WIDTH 13.4 % (11.5-14.5); WHITE BLOOD COUNT 11.9 K/mm3 (4.0-10.0)
[2016-12-23 07:38] LABS: ANION GAP 10 MEQ/L (8-16); BLOOD UREA NITROGEN 11 MG/DL (7-18); CARBON DIOXIDE LEVEL 23 MEQ/L (21-32); CHLORIDE LEVEL 105 MEQ/L (98-107); CREATININE FOR GFR 0.91 MG/DL (0.70-1.30); GLOMERULAR FILTRATION RATE > 60.0 (>60); GLUCOSE, FASTING 98 MG/DL (70-105); POTASSIUM SERUM 3.8 MEQ/L (3.5-5.1); SODIUM LEVEL 138 MEQ/L (136-145)
[2016-12-23] MEDS: SUCRALFATE SUSP 1GM/10ML UD PO SCH ×4 (07:54→21:00)
[2016-12-23] MEDS: SENOKOT S TAB PO SCH ×2 (07:55→21:00)
[2016-12-23] MEDS: ENOXAPARIN 40 MG/0.4 ML SYRINGE (J1650) SC SCH (08:04)
[2016-12-23] MEDS: MORPHINE 1MG/ML IN 0.9% NACL 100ML IV BAG IV PRN ×2 (08:04→22:00)
[2016-12-23] MEDS: PANTOPRAZOLE 40MG INJ (PROTONIX) (C9113) IV SCH (08:04)
--- NOTE | 2016-12-23 08:21 | IPNPDOC ---
Subjective General Date/Time Seen The patient was seen on 12/23/16 at 08:16. Subject Chief Complaint/History The patient is a 31-year-old male admitted with a reason for visit of Ruptured Ulcer. The overnight surgeon was called to bedside at about 6 am reporting sudden onset of uncontrolled pain on the patient with the drain again putting bilious material from original serosangeunous post surgery drainage. I brought him back last night and re-did the repair of the perforation at the duodenal bulb. I checked for other sources of leakage and at that time did not find any. I examined him at the bedside and patient looks uncomfortable with thick bilious drainage from the tyrone drain. Current Medications Current Medications Current Medications Acetaminophen (Tylenol Tab) 650 mg Q4HP PRN PO MILD PAIN or TEMP > 101; Start 12/21/16 at 12:45; Stop 01/20/17 at 12:44 Acetaminophen/ Hydrocodone Bitart ([place], Anexsia 5/325) 1 tab Q4HP PRN PO MODERATE PAIN (PS 5-7); Start 12/21/16 at 12:45; Stop 12/22/16 at 15:27; Status DC Acetaminophen/ Hydrocodone Bitart ([place], Anexsia 5/325) 2 tab Q6HP PRN PO SEVERE PAIN (PS 8-10) Last administered on 12/22/16 11:54; Start 12/21/16 at 12 :45; Stop 12/22/16 at 15:27; Status DC Diphenhydramine HCl (Benadryl) 12.5 mg Q4HP PRN IV ITCHING; Start 12/22/16 at 15:30; Stop 01/21/17 at 15:29 Enoxaparin Sodium (Lovenox) 40 mg DAILY SC Last administered on 12/23/16 08:04 ; Start 12/22/16 at 09:00; Stop 12/27/16 at 08:59 Ertapenem 1 gm/ Sodium Chloride 50 ml @ 100 mls/hr ONCE PRN IV PREOP; Start at 09:30; Stop 12/21/16 at 12:44; Status DC Ertapenem 1 gm/ Sodium Chloride 50 ml @ 100 mls/hr Q24H IV ; Start 12/22/16 at 10:00; Stop 12/22/16 at 10:00; Status DC Ertapenem 1 gm/ Sodium Chloride 50 ml @ 100 mls/hr Q24H IV Last administered on 12/22/16 09:46; Start 12/22/16 at 10:00; Stop 12/29/16 at 09:59 Fentanyl Citrate (Sublimaze) 25 mcg Q5MP PRN IV MODERATE PAIN (PS 4-7); Start 12/21/16 at 13:15; Stop 12/21/16 at 14:15; Status DC Fentanyl Citrate (Sublimaze) 25 mcg Q5MP PRN IV MODERATE PAIN (PS 4-7) Last administered on 12/22/16 20:00; Start 12/22/16 at 20:15; Stop 12/22/16 at 21:15 ; Status DC Home Med (Med Rec Complete!) ASDIRECTED XX ; Start 12/21/16 at 07:45; Stop at 07:45; Status DC Hydromorphone HCl (Dilaudid) 0.5 mg Q30M PRN IV MODERATE PAIN (PS 5-7) Last administered on 12/21/16 07:44; Start 12/21/16 at 07:15; Stop 12/21/16 at 07:44 ; Status DC Lactated Ringer's 1,000 ml @ 100 mls/hr Q10H IV ; Start 12/21/16 at 13:15; Stop 12/21/16 at 14:15; Status DC Lactated Ringer's 1,000 ml @ 100 mls/hr Q10H IV Last administered on 19:30; Start 12/22/16 at 20:15; Stop 12/22/16 at 21:15; Status DC Lactated Ringer's 1,000 ml @ 150 mls/hr Q6H40M IV ; Start 12/21/16 at 09:30; Stop 12/21/16 at 12:45; Status DC Lactated Ringer's 1,000 ml @ 150 mls/hr Q6H40M IV Last administered on 04:10; Start 12/21/16 at 12:38; Stop 01/20/17 at 12:37 Meperidine HCl (Demerol) 12.5 mg Q5MP PRN IV SHIVERING Last administered on 13:18; Start 12/21/16 at 13:15; Stop 12/21/16 at 14:15; Status DC Metoclopramide HCl (REGLAN INJection) 10 mg Q6HP PRN IV NAUSEA OR VOMITING; Start 12/21/16 at 13:15; Stop 12/21/16 at 14:15; Status DC Morphine Sulfate (Morphine Sulfate In 0.9%Nacl Iv Bag) Concentration 1 mg/ml ASDIRECTED PRN IV SEE LABEL COMMENTS Last administered on 12/23/16 08:04; Start 12/22/16 at 15:30; Stop 12/29/16 at 15:29 Morphine Sulfate (Morphine Sulfate Inj) 4 mg Q2HP PRN IV SEVERE PAIN (PS 8-10) Last administered on 12/22/16 13:45; Start 12/21/16 at 12:45; Stop 12/22/16 at 15:27; Status DC Nalbuphine HCl (Nubain) 2.5 mg Q6HP PRN IV PRURITIS; Start 12/22/16 at 15:30; Stop 12/29/16 at 15:29 Naloxone HCl (Narcan) 0.1 mg Q5MP PRN IV SEE LABEL COMMENTS; Start 12/22/16 at 15:30; Stop 01/21/17 at 15:29 Non-Formulary Medication (Epidural/ANESTHESIA RESIDENT [place]) USE THIS ENTRY TO VEND ... Q1M PRN XX SEE LABEL COMMENTS; Start 12/22/16 at 15:30; Stop 01/21/17 at 15:29 Ondansetron HCl (ZOFRAN INJection) 4 mg Q4HP PRN IV NAUSEA OR VOMITING; Start 12/21/16 at 13:15; Stop 12/21/16 at 14:15; Status DC Ondansetron HCl (ZOFRAN INJection) 4 mg Q4HP PRN IV NAUSEA OR VOMITING; Start 12/22/16 at 20:15; Stop 12/22/16 at 21:15; Status DC Ondansetron HCl (ZOFRAN INJection) 4 mg Q6HP PRN IV NAUSEA OR VOMITING; Start 12/21/16 at 12:45; Stop 12/22/16 at 15:42; Status DC Ondansetron HCl (ZOFRAN INJection) 4 mg Q6HP PRN IV NAUSEA; Start 12/22/16 at 15:30; Stop 01/21/17 at 15:29 Pantoprazole Sodium (Protonix) 40 mg Q12H IV Last administered on 12/23/16 08: 04; Start 12/21/16 at 21:00; Stop 01/20/17 at 20:59 Senna/Docusate Sodium (Senokot S) 1 tab BID PO Last administered on 12/22/16 08:22; Start 12/21/16 at 21:00; Stop 01/20/17 at 20:59 Sodium Chloride 1,000 ml @ 15 mls/hr Q24H IV ; Start 12/22/16 at 15:24; Stop at 15:37; Status DC Sodium Chloride 1,000 ml @ 200 mls/hr Q5H IV Last administered on 12/21/16 07 :30; Start 12/21/16 at 07:30; Stop 12/21/16 at 09:19; Status DC Sucralfate (Carafate Suspension) 1 gm QID PO Last administered on 12/22/16 22: 33; Start 12/22/16 at 09:00; Stop 01/21/17 at 08:59 Sucralfate (Carafate) 1 gm QID PO ; Start 12/22/16 at 09:00; Stop 12/22/16 at 10 :23; Status DC Trazodone HCl (Desyrel) 100 mg QHSP PRN PO INSOMNIA Last administered on 22:38; Start 12/21/16 at 22:30; Stop 01/20/17 at 22:29 Allergies Coded Allergies: No Known Allergies (Unverified , 12/11/16) Objective Physical Examination Examination GENERAL APPEARANCE:Patient seen, laying in bed, awake, alert, and oriented. Unomfortable. SKIN: [Warm and moist, perspiring. HEENT: Normocephalic, atraumatic. [place] palpebral conjunctiva, anicteric sclerae. Lips and mucosa appear moist. NECK: no jugular venous distention. LUNGS: Clear to auscultation bilaterally. No wheezing appreciated. HEART: No chest wall abnormalities. Regular rate and rhythm with no murmurs appreciated. ABDOMEN: Abdomen is mildly distended, soft, tender at upper abdomen with guarding. . EXTREMITIES: Extremities have no deformities. No edema identified. Vital Signs Vital Signs Date Time Temp Pulse Resp B/P (MAP) Pulse Ox O2 Delivery O2 Flow Rate FiO2 12/23/16 06:00 99.8 97 22 143/73 (96) 94 Room Air 12/22/16 19:45 2 I&Os I&O- Last 24 Hours up to 6 AM 12/23/16 06:00 Intake Total 2700 ml Output Total 2350 ml Balance 350 ml Laboratory Data Labs 24H Laboratory Tests 2 12/23/16 05:39: White Blood Count 11.9H, Red Blood Count 4.70, Hemoglobin 14.5, Hematocrit 42.0 , Mean Corpuscular Volume 89.2, Mean Corpuscular Hemoglobin 30.8, Mean Corpuscular Hemoglobin Concent 34.5, Red Cell Distribution Width 13.4, Platelet Count 173, Neutrophils (%) (Auto) 80.5H, Lymphocytes (%) (Auto) 11.1L, Monocytes (%) (Auto) 6.1H, Eosinophils (%) (Auto) 1.3, Basophils (%) (Auto) 0.2 , Neutrophils # (Auto) 9.6H, Lymphocytes # (Auto) 1.4L, Monocytes # (Auto) 0.7, Eosinophils # (Auto) 0.2, Basophils # (Auto) 0.0, Large Unclassified Cells % 0.8 , Large Unclassified Cells # 0.1 12/23/16 05:40: Anion Gap 10, Glomerular Filtration Rate > 60.0, Blood Urea Nitrogen 11, Creatinine 0.91, Sodium Level 138, Potassium Level 3.8, Chloride Level 105, Carbon Dioxide Level 23, Calcium Level 8.0L CBC/BMP Laboratory Tests 12/23/16 05:39 Red Blood Count 4.70, Mean Corpuscular Volume 89.2, Mean Corpuscular Hemoglobin 30.8, Mean Corpuscular Hemoglobin Concent 34.5, Red Cell Distribution Width 13.4 , Neutrophils (%) (Auto) 80.5 H, Lymphocytes (%) (Auto) 11.1 L, Monocytes (%) ( Auto) 6.1 H, Eosinophils (%) (Auto) 1.3, Basophils (%) (Auto) 0.2, Neutrophils # (Auto) 9.6 H, Lymphocytes # (Auto) 1.4 L, Monocytes # (Auto) 0.7, Eosinophils # (Auto) 0.2, Basophils # (Auto) 0.0 12/23/16 05:40 Calcium Level 8.0 L Impression perforated duodenal bulb ulcer pod1 re-do repair last night again with bilious drainage. At this point I have to consider another source of the leak aside from considering failure of the repair with the bile appearing more biliary source in character. I will get an upper GI series to evaluate the ulcer repair and another source of leak and HIDA scan to evaluate for possible biliary tract injury during my repair. Add ocreotide to decrease bile drainage. Plan / VTE VTE Prophylaxis Ordered?: Yes NICK ENGLE MD Dec 23, 2016 08:21
[2016-12-23] MEDS: OCTREOTIDE ACETATE 100 MCG/ML VIAL (J2354) SC SCH ×2 (10:40→14:18)
[2016-12-23] MEDS: ERTAPENEM SODIUM 1 GM in NS MINI-BAG PLUS 50 ML IV SCH (10:40)
[2016-12-23] MEDS ORDERED: GASTROGRAFIN SOLUTION 30ML (Q9963) As Ordered ONE (12:33)
--- NOTE | 2016-12-23 13:04 | REP ---
HIDA SCAN: Following the intravenous administration of 6.5 mCi of technetium-99m mebrofenin, multiple images of the right upper quadrant are performed every minute for a period of 60 minutes. The gallbladder is visualized at 20 minutes post injection. There is biliary to bowel transit at 35 minutes post injection. At that time, there is visualization of radiotracer in the patient's drainage tube located in the right upper quadrant. I see no other evidence of extraluminal radiotracer. This study is indeterminate with regard to evaluating the source of a bile leak as the radiotracer in the drainage tube could be coming from the gallbladder or the duodenum. Signed by Ty Sood MD 12/23/2016 03:30 P
[2016-12-23] MEDS: diphenhydrAMINE INJ 50MG/ML VIAL (J1200) IV PRN (14:55)
--- NOTE | 2016-12-23 16:48 | IPNPDOC ---
Subjective General Date/Time Seen The patient was seen on 12/23/16 at 16:36. Subject Chief Complaint/History The patient is a 31-year-old male admitted with a reason for visit of Ruptured Ulcer. Current Medications Current Medications Current Medications Acetaminophen (Tylenol Tab) 650 mg Q4HP PRN PO MILD PAIN or TEMP > 101; Start 12/21/16 at 12:45; Stop 01/20/17 at 12:44 Acetaminophen/ Hydrocodone Bitart ([place], Anexsia 5/325) 1 tab Q4HP PRN PO MODERATE PAIN (PS 5-7); Start 12/21/16 at 12:45; Stop 12/22/16 at 15:27; Status DC Acetaminophen/ Hydrocodone Bitart ([place], Anexsia 5/325) 2 tab Q6HP PRN PO SEVERE PAIN (PS 8-10) Last administered on 12/22/16 11:54; Start 12/21/16 at 12 :45; Stop 12/22/16 at 15:27; Status DC Diphenhydramine HCl (Benadryl) 12.5 mg Q4HP PRN IV ITCHING Last administered on 12/23/16 14:55; Start 12/22/16 at 15:30; Stop 01/21/17 at 15:29 Enoxaparin Sodium (Lovenox) 40 mg DAILY SC Last administered on 12/23/16 08:04 ; Start 12/22/16 at 09:00; Stop 12/27/16 at 08:59 Ertapenem 1 gm/ Sodium Chloride 50 ml @ 100 mls/hr ONCE PRN IV PREOP; Start at 09:30; Stop 12/21/16 at 12:44; Status DC Ertapenem 1 gm/ Sodium Chloride 50 ml @ 100 mls/hr Q24H IV ; Start 12/22/16 at 10:00; Stop 12/22/16 at 10:00; Status DC Ertapenem 1 gm/ Sodium Chloride 50 ml @ 100 mls/hr Q24H IV Last administered on 12/23/16 10:40; Start 12/22/16 at 10:00; Stop 12/29/16 at 09:59 Fentanyl Citrate (Sublimaze) 25 mcg Q5MP PRN IV MODERATE PAIN (PS 4-7); Start 12/21/16 at 13:15; Stop 12/21/16 at 14:15; Status DC Fentanyl Citrate (Sublimaze) 25 mcg Q5MP PRN IV MODERATE PAIN (PS 4-7) Last administered on 12/22/16 20:00; Start 12/22/16 at 20:15; Stop 12/22/16 at 21:15 ; Status DC Home Med (Med Rec Complete!) ASDIRECTED XX ; Start 12/21/16 at 07:45; Stop at 07:45; Status DC Hydromorphone HCl (Dilaudid) 0.5 mg Q30M PRN IV MODERATE PAIN (PS 5-7) Last administered on 12/21/16 07:44; Start 12/21/16 at 07:15; Stop 12/21/16 at 07:44 ; Status DC Lactated Ringer's 1,000 ml @ 100 mls/hr Q10H IV ; Start 12/21/16 at 13:15; Stop 12/21/16 at 14:15; Status DC Lactated Ringer's 1,000 ml @ 100 mls/hr Q10H IV Last administered on 19:30; Start 12/22/16 at 20:15; Stop 12/22/16 at 21:15; Status DC Lactated Ringer's 1,000 ml @ 150 mls/hr Q6H40M IV ; Start 12/21/16 at 09:30; Stop 12/21/16 at 12:45; Status DC Lactated Ringer's 1,000 ml @ 150 mls/hr Q6H40M IV Last administered on 04:10; Start 12/21/16 at 12:38; Stop 01/20/17 at 12:37 Meperidine HCl (Demerol) 12.5 mg Q5MP PRN IV SHIVERING Last administered on 13:18; Start 12/21/16 at 13:15; Stop 12/21/16 at 14:15; Status DC Metoclopramide HCl (REGLAN INJection) 10 mg Q6HP PRN IV NAUSEA OR VOMITING; Start 12/21/16 at 13:15; Stop 12/21/16 at 14:15; Status DC Morphine Sulfate (Morphine Sulfate In 0.9%Nacl Iv Bag) Concentration 1 mg/ml ASDIRECTED PRN IV SEE LABEL COMMENTS Last administered on 12/23/16 08:04; Start 12/22/16 at 15:30; Stop 12/29/16 at 15:29 Morphine Sulfate (Morphine Sulfate Inj) 4 mg Q2HP PRN IV SEVERE PAIN (PS 8-10) Last administered on 12/22/16 13:45; Start 12/21/16 at 12:45; Stop 12/22/16 at 15:27; Status DC Nalbuphine HCl (Nubain) 2.5 mg Q6HP PRN IV PRURITIS; Start 12/22/16 at 15:30; Stop 12/29/16 at 15:29 Naloxone HCl (Narcan) 0.1 mg Q5MP PRN IV SEE LABEL COMMENTS; Start 12/22/16 at 15:30; Stop 01/21/17 at 15:29 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 Q1M PRN XX SEE LABEL COMMENTS; Start 12/22/16 at 15:30; Stop 01/21/17 at 15:29 Octreotide Acetate (SandoSTATIN) 100 mcg Q8H SC Last administered on 12/23/16 14:18; Start 12/23/16 at 06:00; Stop 01/22/17 at 05:59 Ondansetron HCl (ZOFRAN INJection) 4 mg Q4HP PRN IV NAUSEA OR VOMITING; Start 12/21/16 at 13:15; Stop 12/21/16 at 14:15; Status DC Ondansetron HCl (ZOFRAN INJection) 4 mg Q4HP PRN IV NAUSEA OR VOMITING; Start 12/22/16 at 20:15; Stop 12/22/16 at 21:15; Status DC Ondansetron HCl (ZOFRAN INJection) 4 mg Q6HP PRN IV NAUSEA OR VOMITING; Start 12/21/16 at 12:45; Stop 12/22/16 at 15:42; Status DC Ondansetron HCl (ZOFRAN INJection) 4 mg Q6HP PRN IV NAUSEA; Start 12/22/16 at 15:30; Stop 01/21/17 at 15:29 Pantoprazole Sodium (Protonix) 40 mg Q12H IV Last administered on 12/23/16 08: 04; Start 12/21/16 at 21:00; Stop 01/20/17 at 20:59 Senna/Docusate Sodium (Senokot S) 1 tab BID PO Last administered on 12/22/16 08:22; Start 12/21/16 at 21:00; Stop 01/20/17 at 20:59 Sodium Chloride 1,000 ml @ 15 mls/hr Q24H IV ; Start 12/22/16 at 15:24; Stop at 15:37; Status DC Sodium Chloride 1,000 ml @ 200 mls/hr Q5H IV Last administered on 12/21/16 07 :30; Start 12/21/16 at 07:30; Stop 12/21/16 at 09:19; Status DC Sucralfate (Carafate Suspension) 1 gm QID PO Last administered on 12/23/16 14: 18; Start 12/22/16 at 09:00; Stop 01/21/17 at 08:59 Sucralfate (Carafate) 1 gm QID PO ; Start 12/22/16 at 09:00; Stop 12/22/16 at 10 :23; Status DC Trazodone HCl (Desyrel) 100 mg QHSP PRN PO INSOMNIA Last administered on 22:38; Start 12/21/16 at 22:30; Stop 01/20/17 at 22:29 Allergies Coded Allergies: No Known Allergies (Unverified , 12/11/16) Objective Physical Examination Examination GENERAL APPEARANCE:[Patient seen, laying in bed, awake, alert, and oriented. Comfortable, in no acute distress]. SKIN: [Warm and moist]. HEENT: [Normocephalic, atraumatic. [place] palpebral conjunctiva, anicteric sclerae. Lips and mucosa appear moist]. NECK: [Supple, no thyromegaly. No obvious jugular venous distention]. LUNGS: [Clear to auscultation bilaterally. No wheezing appreciated]. HEART: [No chest wall abnormalities. Regular rate and rhythm with no murmurs appreciated]. ABDOMEN: Abdomen is , soft, . [No hepatosplenomegaly. No umbilical or groin herniations, nondistended. No noticeable rebound or guarding. No grimacing with palpation. No rebound tenderness. No masses appreciated]. EXTREMITIES: [Extremities have no deformities. No edema identified]. Vital Signs Vital Signs Date Time Temp Pulse Resp B/P (MAP) Pulse Ox O2 Delivery O2 Flow Rate FiO2 12/23/16 14:11 99.3 105 20 146/80 (102) 89 Nasal Cannula 3.0 I&Os I&O- Last 24 Hours up to 6 AM 12/23/16 05:59 Intake Total 2700 ml Output Total 2580 ml Balance 120 ml Laboratory Data Labs 24H Laboratory Tests 2 12/23/16 05:39: White Blood Count 11.9H, Red Blood Count 4.70, Hemoglobin 14.5, Hematocrit 42.0 , Mean Corpuscular Volume 89.2, Mean Corpuscular Hemoglobin 30.8, Mean Corpuscular Hemoglobin Concent 34.5, Red Cell Distribution Width 13.4, Platelet Count 173, Neutrophils (%) (Auto) 80.5H, Lymphocytes (%) (Auto) 11.1L, Monocytes (%) (Auto) 6.1H, Eosinophils (%) (Auto) 1.3, Basophils (%) (Auto) 0.2 , Neutrophils # (Auto) 9.6H, Lymphocytes # (Auto) 1.4L, Monocytes # (Auto) 0.7, Eosinophils # (Auto) 0.2, Basophils # (Auto) 0.0, Large Unclassified Cells % 0.8 , Large Unclassified Cells # 0.1 12/23/16 05:40: Anion Gap 10, Glomerular Filtration Rate > 60.0, Blood Urea Nitrogen 11, Creatinine 0.91, Sodium Level 138, Potassium Level 3.8, Chloride Level 105, Carbon Dioxide Level 23, Calcium Level 8.0L CBC/BMP Laboratory Tests 12/23/16 05:39 Red Blood Count 4.70, Mean Corpuscular Volume 89.2, Mean Corpuscular Hemoglobin 30.8, Mean Corpuscular Hemoglobin Concent 34.5, Red Cell Distribution Width 13.4 , Neutrophils (%) (Auto) 80.5 H, Lymphocytes (%) (Auto) 11.1 L, Monocytes (%) ( Auto) 6.1 H, Eosinophils (%) (Auto) 1.3, Basophils (%) (Auto) 0.2, Neutrophils # (Auto) 9.6 H, Lymphocytes # (Auto) 1.4 L, Monocytes # (Auto) 0.7, Eosinophils # (Auto) 0.2, Basophils # (Auto) 0.0 12/23/16 05:40 Calcium Level 8.0 L Impression Perforated duodenal ulcer I reviewed with the patient the results of the studies we did today. A HIDA scan and an Upper GI series was done showing still drainage from the duodenal bulb ulcer. The immediate failure of the repair does not isaias well on the tissue integrity of the duodenum surrounding the ulcer. Couple this with the location of the ulcer close towards the second portion of the duodenum, I do not think resection is possible or would most likely pose a problem with regards to the proximity to the papilla. I have advised him the need to unfortunately to go back to the or and this time with another attempt at repair (2 layer closure) plus either further drainage (gastrostomy and jejunostomy feeding tube) or pyloric exclusion. Either of this would need several weeks up to months to fully heal and I would like to prepare them for this eventuality. Consent was obtained from the patient Plan / VTE VTE Prophylaxis Ordered?: Yes NICK ENGLE MD Dec 23, 2016 16:48
--- NOTE | 2016-12-23 18:06 | REP ---
GASTROGRAFIN UPPER GI: The procedure was performed under the direct supervision of Dr. Sood. The images were reviewed with Dr. Sood. The perianesthesia rn film shows no organomegaly or pathological masses. Intestinal gas pattern is nonspecific. There is an NG tube in place. There is a surgical drain noted in the upper abdomen. There is a surgical clip noted in the left abdomen. 200 mL of a 50/50 solution of GASTROGRAPHIN and water was instilled through the NG tube. Images demonstrate filling of the stomach. There is a persistent perforation in the duodenal bulb with extravasation. IMPRESSION: There is a persistent perforation in the duodenal bulb with extravasation. These findings were relay to Dr. Osborne at the time of procedure. 1 minute and 32 seconds of fluoroscopic time was utilized for this procedure. Reviewed by CLARENCE Roberts 12/24/2016 01:45 PEdited and Signed by Ty Sood MD 12/25/2016 05:39 P
[2016-12-23] MEDS ORDERED: METHYLENE BLUE 0.5% (5MG/ML) 10 ML AMP (PROVAYBLUE)(Q9968 PER 1MG) As Ordered ONE ×2 (18:55→19:38)
[2016-12-23] MEDS ORDERED: MIDAZOLAM INJ 2 MG/2 ML VIAL (J2250) As Ordered ONE (19:04)
[2016-12-23] MEDS ORDERED: PROPOFOL 200 MG/20 ML VIAL As Ordered ONE (19:04)
[2016-12-23] MEDS ORDERED: fentaNYL 250 MCG/5 ML INJECTION (J3010) As Ordered ONE (19:04)
[2016-12-23] MEDS ORDERED: ONDANSETRON 4MG/2ML VIAL (J2405) As Ordered ONE (19:05)
[2016-12-23] MEDS ORDERED: NEOSTIGMINE 1MG/ML 5 ML SYRINGE (J2710) As Ordered ONE (19:05)
[2016-12-23] MEDS ORDERED: GLYCOPYRROLATE INJ 0.2 MG/ML 2 ML VIAL As Ordered ONE (19:05)
[2016-12-23] MEDS ORDERED: LIDOCAINE 2% INJ 100 MG/5 ML SDV (FOR ANES.) As Ordered ONE (19:05)
[2016-12-23] MEDS ORDERED: ROCURONIUM BROMIDE 50 MG/5 ML VIAL/SYRINGE As Ordered ONE ×2 (19:05→19:26)
[2016-12-23] MEDS ORDERED: HYDROmorphone HCL 2 MG/ML 1ML VIAL (J1170) As Ordered ONE (19:08)
[2016-12-23] MEDS ORDERED: fentaNYL 100 MCG/2 ML INJECTION (J3010) As Ordered ONE (21:36)
[2016-12-23] MEDS ORDERED: LR 1,000 ML IV SCH (21:50)
[2016-12-23] MEDS ORDERED: METOCLOPRAMIDE INJ 10MG/2ML VIAL (J2765) IV PRN (21:50)
[2016-12-23] MEDS ORDERED: HYDROmorphone HCL 1 MG/ML SYRINGE (J1170) IV PRN (21:50)
[2016-12-23] MEDS ORDERED: MEPERIDINE INJ 25 MG/ML VIAL (J2175) IV PRN (21:50)
[2016-12-23] MEDS ORDERED: ONDANSETRON 4MG/2ML VIAL (J2405) IV PRN (21:50)
[2016-12-23] MEDS ORDERED: fentaNYL 100 MCG/2 ML INJECTION (J3010) IV PRN (21:50)
[2016-12-23] MEDS ORDERED: MORPHINE 1MG/ML IN 0.9% NACL 100ML IV BAG As Ordered ONE (21:56)
--- NOTE | 2016-12-23 22:12 | ROOPDOC ---
[facility] Report Of Operation Report of Operation DATE OF PROCEDURE: 12/23/16 PREPROCEDURE DIAGNOSES: continued leakage from duodenal perforation. POSTPROCEDURE DIAGNOSES: Leakage from duodenal perforation PROCEDURE: Exploratory Laparotomy Repair of duodenal perforation, omental patch repair Drainage gastrostomy Cholecystostomy Feeding Jejunostomy SURGEON: Ruy Osborne MD ARC FURNACE OPERATOR: DO Jessica Lopez, MS III ANESTHESIA: general ESTIMATED BLOOD LOSS: Approximately 50 mL. COMPLICATIONS: none REMARKS: peforation at duodenal bulb close to the insertion of the cbd. on exploration previous repair was intact but leakage in between the sutures noted. Dr. Waddell health with exposure, manipulation, and shared his opinion with regards to options for repair and protection of the repair. DESCRIPTION OF PROCEDURE: I again brought are patient to the operating room. Yesterday we performed open repair of the duodenal perforation. I left a KAREN drain in place. This morning they KAREN drain was putting out a copy is amount of dark, black, thick, bilious fluid. It almost appears to me us directly coming off the biliary tract. I did a HIDA scan and upper GI series to work this up and he seems to be still draining from the duodenal bulb perforation. With this findings I spoke to him about going back to the operating room to again get better control of the perforation and most likely at this time divert the drainage from the area to protect the closure. Prior to agreeing his ask for a second opinion and I asked Dr. Waddell to speak to the patient and his family. Patient has agreed and is now brought back to the operating room. Patient has been receiving Invanz 1 g IV daily since initial presentation with the perforation. This was continued perioperatively. He again was brought to the operating room, placed supine on the table. General endotracheal anesthesia started. The previously placed drain and radha were removed. A Coates catheter was again placed for urine output monitoring. His whole abdomen was then prepped and draped in usual sterile fashion. Surgical timeout was performed and he began his surgery. With the skin radha removed the skin was opened up. The fascial closure was opened up under direct vision. On entry into the abdomen there was not much undrained collection to begin with. There were pockets of omentum that appears necrosed, with liquefaction necrosis with exposure to the bile fluid. Clearly necrosed area was divided. He was placed on Cipro first and no marked position again for exposure. We set up a Bookwalter self-retaining retractors for exposure of the area of the duodenal perforation. I extended the incision both superiorly and inferiorly for better exposure. Small amount of old dilated bile along the right gutter, more since pouch and perihepatic area as well as around the duodenal repair was suctioned off. The omental repair remains intact. Again we detached the omentum. The sutures that were previously placed remains intact and visually the perforation remains closed. I ask anesthesia to place a diluted methylene blue into the nasogastric tube to fill the stomach. I placed some pressure and tension into the stomach to test the previous repair and I could see leakage of the methylene blue around and in between the sutures that were previously placed. the repair. The silk sutures were cut off and the perforation again was opened up. The edges remain relatively healthy and no new necrosis was found. I did try to perform a wider [place] maneuver to further evaluate the relationship of the papilla and: Bile duct entry to the duodenal perforation. Due to the exposure to the bile and the associated inflammation the margins of the second portion of duodenum was swollen and inflamed I felt it was too risky to proceed with full kocherization. At this point, the papilla since close to the duodenal perforation. Palpating the duodenum around the perforation, there was some inflammation of the tissues but not terribly so. The perforation has some jagged edges now due to 2 previous repairs. At this point we stopped and evaluated our options. I thought a full gastrectomy/ duodenectomy is not a feasible option as this was too close to the bile duct papilla. I think redo of the repair with diversion of bile and gastric contents either through pyloric exclusion or separate gastrostomy, jejunostomy is our only option for repair and for the possibility that the repair will fail. At this point, the duodenal perforation was again repaired. This time I used 3- 0 PDS in full-thickness bites to close repair trying to ion the edges will trying not to cause some stricture and not to catch the nearby papilla of the common bile duct. After each sutures we tested our closure again by forcing the gastric contents with methylene blue through the area and to test for leakage. After making sure that, visually I could not see any leakage of the methylene blue whether this held under pressure from the stomach, we again paused and evaluate how we are going to divert. It struck me earlier that the drainage was thick bile contents rather than gastric contents mixed with bile. I think we needed to divert the bile from the area of repair as this was very close to our perforation. With this, our option would be to perform a cbd enterotomy and leave a t-tube. This was not appealing to me as the area where the bile duct courses through was already swollen and inflamed. Another option will be to partially divert the bile with a cholecystostomy. I chose the latter approach knowing this will not be fully sufficient to divert all bile that may be enough to keep the leakage minimal. A new area fo thick healthy omentum was chosen and harvested and placed at the area of the repair and tied to the repair using the previously placed sutures. Tiseel fibrin glue was squirted at the edges of the omentum. We proceeded by placing a 24 F gastrostomy tube to the body of the stomach through a keeley fashion. This was stiched in four corners into the lateral abdominal wall. The small bowel was ran from the ligament of Treitz and after choosing an area of the early jejunum, a jejunostomy tube was then threaded through the abdominal wall more inferiorly and laterally to the gastrostomy tube. this was placed into the abdomen and threaded distally. The balloon was inflated and a witzel tunnel placed at the entry of the tube to the small bowel and again secured to the abdominal wall. I had an 8 F percutaneous drain placed through the fundus of the gallbladder, the entry was controlled with a purse string suture in a keeley fashion. This was also pulled into the right lateral abdominal wall and stitched to the abdominal wall. A 19 round aries drain was threaded into the clemente pouch without touching the site of repair. At this point the abdomen was gain irrigated. We looked around for other sites fo perforation or bleeding. The abdomen was then closed with 1 looped PDS to close the fascia, and skin radha to close the skin. As he was waking up the drain put up dark bilious fluid which by the time he was in the recovery room has turned bloody. so this must have come from the cholecystostomy tube draining around the entry site into the abdomen. He was successfully extubated and brought to the recovery room stable. NICK OSBORNE MD Dec 23, 2016 22:12
[2016-12-24] VITALS (7 sets, daily range): BP systolic 138–175; BP diastolic 70–96
[2016-12-24] MEDS: LR 1,000 ML IV SCH ×4 (00:05→20:50)
[2016-12-24] MEDS: PANTOPRAZOLE 40MG INJ (PROTONIX) (C9113) IV SCH ×3 (00:17→20:50)
[2016-12-24] MEDS: OCTREOTIDE ACETATE 100 MCG/ML VIAL (J2354) SC SCH ×4 (00:23→23:50)
[2016-12-24 05:51] LABS: BASO % 0.4 % (0.0-1.0); EOS # 0.2 K/mm3 (0.0-0.50); EOS % 2.3 % (0.0-3.0); LARGE UNSTAINED CELL # 0.1 K/mm3 (0.0-0.4); LARGE UNSTAINED CELL % 1.2 % (0.0-4.0); LYMPH # 1.6 K/mm3 (1.5-4.5); LYMPH % 14.2 % (24.0-44.0); MEAN CORPUSCULAR HEMOGLOBIN 30.1 pg (27.0-33.0); MEAN CORPUSCULAR HGB CONC 34.1 g/dl (32.0-36.5); MEAN CORPUSCULAR VOLUME 88.4 fl (80.0-96.0); MONO # 0.6 K/mm3 (0.0-0.8); NEUTROPHILS # 7.9 K/mm3 (1.8-7.7); NEUTROPHILS % 75.8 % (36.0-66.0); PLATELET COUNT, AUTOMATED 149 k/mm3 (150-450); RED CELL DISTRIBUTION WIDTH 13.1 % (11.5-14.5); WHITE BLOOD COUNT 10.4 K/mm3 (4.0-10.0)
[2016-12-24 06:03] LABS: ANION GAP 7 MEQ/L (8-16); BLOOD UREA NITROGEN 10 MG/DL (7-18); CALCIUM LEVEL 7.8 MG/DL (8.5-10.1); CARBON DIOXIDE LEVEL 27 MEQ/L (21-32); CHLORIDE LEVEL 101 MEQ/L (98-107); CREATININE FOR GFR 0.81 MG/DL (0.70-1.30); GLOMERULAR FILTRATION RATE > 60.0 (>60); GLUCOSE, FASTING 124 MG/DL (70-105); POTASSIUM SERUM 3.7 MEQ/L (3.5-5.1); SODIUM LEVEL 135 MEQ/L (136-145)
[2016-12-24] MEDS ORDERED: HYDROmorphone HCL 1 MG/ML SYRINGE (J1170) IV PRN (07:15)
--- NOTE | 2016-12-24 07:38 | IPNPDOC ---
Subjective General Date/Time Seen The patient was seen on 12/24/16 at 07:30. Subject Chief Complaint/History The patient is a 31-year-old male admitted with a reason for visit of Ruptured Ulcer. I took him back again to the operating room last night due to persistent bilious leakage with evidence of persistent leak at the duodenal bulb perforation and upper GI series. In the OR the repair is intact but there is leakage in between the sutures. This was read on and tested and at the end was not leaking but I think due to the current inflammation at the area has a good chance of leaking once more the last I decided to divert both bile via cholecystostomy and stomach output via a gastrostomy and placed a jejunostomy feeding tube for post duodenal feeding. Patient is seen this morning still complaining of pain about 8 out of 10. He used about 60 mg of morphine last night. He is not moving much but looks fairly comfortable. Denies nausea or vomiting. Drains were examined. The KAREN drain is mildly bile tinge( was initially bile appearing due to the leakage from the cholecystostomy after closing.) But mostly serous sanguinous and no evidence of the methylene blue stained fluid leaking through our repair. Current Medications Current Medications Current Medications Acetaminophen (Tylenol Tab) 650 mg Q4HP PRN PO MILD PAIN or TEMP > 101; Start 12/21/16 at 12:45; Stop 01/22/17 at 12:44 Acetaminophen/ Hydrocodone Bitart ([place], Anexsia 5/325) 1 tab Q4HP PRN PO MODERATE PAIN (PS 5-7); Start 12/21/16 at 12:45; Stop 12/22/16 at 15:27; Status DC Acetaminophen/ Hydrocodone Bitart ([place], Anexsia 5/325) 2 tab Q6HP PRN PO SEVERE PAIN (PS 8-10) Last administered on 12/22/16 11:54; Start 12/21/16 at 12 :45; Stop 12/22/16 at 15:27; Status DC Diphenhydramine HCl (Benadryl) 12.5 mg Q4HP PRN IV ITCHING Last administered on 12/23/16 14:55; Start 12/22/16 at 15:30; Stop 01/22/17 at 15:29 Enoxaparin Sodium (Lovenox) 40 mg DAILY SC Last administered on 12/23/16 08:04 ; Start 12/22/16 at 09:00; Stop 12/28/16 at 08:59 Ertapenem 1 gm/ Sodium Chloride 50 ml @ 100 mls/hr ONCE PRN IV PREOP; Start at 09:30; Stop 12/21/16 at 12:44; Status DC Ertapenem 1 gm/ Sodium Chloride 50 ml @ 100 mls/hr Q24H IV ; Start 12/22/16 at 10:00; Stop 12/22/16 at 10:00; Status DC Ertapenem 1 gm/ Sodium Chloride 50 ml @ 100 mls/hr Q24H IV Last administered on 12/23/16 10:40; Start 12/22/16 at 10:00; Stop 12/30/16 at 09:59 Fentanyl Citrate (Sublimaze) 25 mcg Q5MP PRN IV MODERATE PAIN (PS 4-7); Start 12/21/16 at 13:15; Stop 12/21/16 at 14:15; Status DC Fentanyl Citrate (Sublimaze) 25 mcg Q5MP PRN IV MODERATE PAIN (PS 4-7) Last administered on 12/22/16 20:00; Start 12/22/16 at 20:15; Stop 12/22/16 at 21:15 ; Status DC Fentanyl Citrate (Sublimaze) 25 mcg Q5MP PRN IV MODERATE PAIN (PS 4-7); Start 12/23/16 at 21:50; Stop 12/23/16 at 23:30; Status DC Home Med (Med Rec Complete!) ASDIRECTED XX ; Start 12/21/16 at 07:45; Stop at 07:45; Status DC Hydromorphone HCl (Dilaudid) 0.3 mg Q5MP PRN IV MODERATE/SEVERE PAIN (PS 7-10) ; Start 12/23/16 at 21:50; Stop 12/23/16 at 23:30; Status DC Hydromorphone HCl (Dilaudid) 0.5 mg Q30M PRN IV MODERATE PAIN (PS 5-7) Last administered on 12/21/16 07:44; Start 12/21/16 at 07:15; Stop 12/21/16 at 07:44 ; Status DC Hydromorphone HCl (Dilaudid) 1 mg Q3HP PRN IV MILD PAIN (PS 1-4); Start at 07:15; Stop 12/31/16 at 07:14 Lactated Ringer's 1,000 ml @ 100 mls/hr Q10H IV ; Start 12/21/16 at 13:15; Stop 12/21/16 at 14:15; Status DC Lactated Ringer's 1,000 ml @ 100 mls/hr Q10H IV Last administered on 19:30; Start 12/22/16 at 20:15; Stop 12/22/16 at 21:15; Status DC Lactated Ringer's 1,000 ml @ 150 mls/hr Q6H40M IV ; Start 12/21/16 at 09:30; Stop 12/21/16 at 12:45; Status DC Lactated Ringer's 1,000 ml @ 150 mls/hr Q6H40M IV Last administered on 00:05; Start 12/21/16 at 12:38; Stop 01/22/17 at 12:37 Lactated Ringer's 1,000 ml @ 150 mls/hr Q6H40M IV ; Start 12/23/16 at 21:50; Stop 12/23/16 at 23:30; Status DC Meperidine HCl (Demerol) 12.5 mg Q5MP PRN IV SHIVERING Last administered on 13:18; Start 12/21/16 at 13:15; Stop 12/21/16 at 14:15; Status DC Meperidine HCl (Demerol) 12.5 mg Q5MP PRN IV SHIVERING; Start 12/23/16 at 21:50 ; Stop 12/23/16 at 23:30; Status DC Metoclopramide HCl (REGLAN INJection) 10 mg Q6HP PRN IV NAUSEA OR VOMITING; Start 12/21/16 at 13:15; Stop 12/21/16 at 14:15; Status DC Metoclopramide HCl (REGLAN INJection) 10 mg Q6HP PRN IV NAUSEA OR VOMITING; Start 12/23/16 at 21:50; Stop 12/23/16 at 23:30; Status DC Morphine Sulfate (Morphine Sulfate In 0.9%Nacl Iv Bag) Concentration 1 mg/ml ASDIRECTED PRN IV SEE LABEL COMMENTS Last administered on 12/23/16 22:00; Start 12/22/16 at 15:30; Stop 12/29/16 at 15:29 Morphine Sulfate (Morphine Sulfate Inj) 4 mg Q2HP PRN IV SEVERE PAIN (PS 8-10) Last administered on 12/22/16 13:45; Start 12/21/16 at 12:45; Stop 12/22/16 at 15:27; Status DC Nalbuphine HCl (Nubain) 2.5 mg Q6HP PRN IV PRURITIS; Start 12/22/16 at 15:30; Stop 12/29/16 at 15:29 Naloxone HCl (Narcan) 0.1 mg Q5MP PRN IV SEE LABEL COMMENTS; Start 12/22/16 at 15:30; Stop 01/21/17 at 15:29 Non-Formulary Medication (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 Q1M PRN XX SEE LABEL COMMENTS; Start 12/22/16 at 15:30; Stop 01/21/17 at 15:29 Octreotide Acetate (SandoSTATIN) 100 mcg Q8H SC Last administered on 12/24/16 00:23; Start 12/23/16 at 06:00; Stop 01/22/17 at 05:59 Ondansetron HCl (ZOFRAN INJection) 4 mg Q4HP PRN IV NAUSEA OR VOMITING; Start 12/21/16 at 13:15; Stop 12/21/16 at 14:15; Status DC Ondansetron HCl (ZOFRAN INJection) 4 mg Q4HP PRN IV NAUSEA OR VOMITING; Start 12/22/16 at 20:15; Stop 12/22/16 at 21:15; Status DC Ondansetron HCl (ZOFRAN INJection) 4 mg Q4HP PRN IV NAUSEA OR VOMITING; Start 12/23/16 at 21:50; Stop 12/23/16 at 23:30; Status DC Ondansetron HCl (ZOFRAN INJection) 4 mg Q6HP PRN IV NAUSEA OR VOMITING; Start 12/21/16 at 12:45; Stop 12/22/16 at 15:42; Status DC Ondansetron HCl (ZOFRAN INJection) 4 mg Q6HP PRN IV NAUSEA; Start 12/22/16 at 15:30; Stop 01/22/17 at 15:29 Pantoprazole Sodium (Protonix) 40 mg Q12H IV Last administered on 12/24/16 00: 17; Start 12/21/16 at 21:00; Stop 01/22/17 at 20:59 Senna/Docusate Sodium (Senokot S) 1 tab BID PO Last administered on 12/22/16 08:22; Start 12/21/16 at 21:00; Stop 01/22/17 at 20:59 Sodium Chloride 1,000 ml @ 15 mls/hr Q24H IV ; Start 12/22/16 at 15:24; Stop at 15:37; Status DC Sodium Chloride 1,000 ml @ 200 mls/hr Q5H IV Last administered on 12/21/16 07 :30; Start 12/21/16 at 07:30; Stop 12/21/16 at 09:19; Status DC Sucralfate (Carafate Suspension) 1 gm QID PO Last administered on 12/23/16 14: 18; Start 12/22/16 at 09:00; Stop 01/22/17 at 08:59 Sucralfate (Carafate) 1 gm QID PO ; Start 12/22/16 at 09:00; Stop 12/22/16 at 10 :23; Status DC Trazodone HCl (Desyrel) 100 mg QHSP PRN PO INSOMNIA Last administered on 22:38; Start 12/21/16 at 22:30; Stop 01/22/17 at 22:29 Allergies Coded Allergies: No Known Allergies (Unverified , 12/11/16) Objective Physical Examination Examination GENERAL APPEARANCE: Patient is laying in bed, fairly immobile, awake, looks more comfortable than he was yesterday though still complains of severe pain. SKIN: Warm and moist, perspiring HEENT: Normocephalic, atraumatic. [place] palpebral conjunctiva, anicteric sclerae. Lips and mucosa appear moist. NECK: Supple, no thyromegaly. No obvious jugular venous distention. LUNGS: Clear to auscultation bilaterally. No wheezing appreciated, shallow breathing efforts HEART: No chest wall abnormalities. Regular rate and rhythm with no murmurs appreciated. ABDOMEN: Abdomen is , soft, distended, quiet. Multiple drains in his abdomen includes a cholecystostomy tube with black bile drainage. A KAREN drain which is mostly serosanguineous but slightly bile tinged. Gastrostomy tube has no output though connected to low intermittent suction. A feeding jejunostomy is capped. Dressings are dry and intact EXTREMITIES: Extremities have no deformities. Beginning mild edema. Vital Signs Vital Signs Date Time Temp Pulse Resp B/P (MAP) Pulse Ox O2 Delivery O2 Flow Rate FiO2 12/24/16 04:07 99.2 81 18 142/76 (98) 99 Nasal Cannula 2.0 I&Os I&O- Last 24 Hours up to 6 AM 12/24/16 06:00 Intake Total 3000 ml Output Total 2270 ml Balance 730 ml Laboratory Data CBC/BMP Laboratory Tests 12/24/16 05:16 Red Blood Count 4.55, Mean Corpuscular Volume 88.4, Mean Corpuscular Hemoglobin 30.1, Mean Corpuscular Hemoglobin Concent 34.1, Red Cell Distribution Width 13.1 , Neutrophils (%) (Auto) 75.8 H, Lymphocytes (%) (Auto) 14.2 L, Monocytes (%) ( Auto) 6.0 H, Eosinophils (%) (Auto) 2.3, Basophils (%) (Auto) 0.4, Neutrophils # (Auto) 7.9 H, Lymphocytes # (Auto) 1.6, Monocytes # (Auto) 0.6, Eosinophils # (Auto) 0.2, Basophils # (Auto) 0.0, Calcium Level 7.8 L Impression Perforated duodenal bulb ulcer quite close to the insertion of the common bile duct Repair of duodenal bulb perforation, placement of omental patch Cholecystostomy tube Gastrostomy tube Feeding jejunostomy I took him back again to the operating room last night due to persistent bilious leakage with evidence of persistent leak at the duodenal bulb perforation and upper GI series. In the OR the repair is intact but there is leakage in between the sutures. This was read on and tested and at the end was not leaking but I think due to the current inflammation at the area has a good chance of leaking once more the last I decided to divert both bile via cholecystostomy and stomach output via a gastrostomy and placed a jejunostomy feeding tube for post duodenal feeding. I was spoken to him about the operative findings. There is a fairly good chance of some leakage around the repair but this time around we had tried today for at the bile and gastric output away from the area to allow it to heal. Once we see some signs of bowel function would start post duodenal feedings through the jejunostomy tube. Tentatively plan for repeat upper GI to evaluate healing in a week's time depending on how he clinically looks and how the drainage output looks. Right now is having only shallow breathing. Encouraged him to take the Sanabria's. Spoke to the nurse about having an incentive spirometer is trying to get him up out of bed and sit up in a chair. The gastrostomy tube will most likely work better when he is upright. Keep the Coates catheter today for urine output monitoring. Plan / VTE VTE Prophylaxis Ordered?: Yes Plan / Urinary Catheter Reason for insertion/continuin: Perioperative NICK ENGLE MD Dec 24, 2016 07:38
[2016-12-24] MEDS: SUCRALFATE SUSP 1GM/10ML UD PO SCH ×4 (08:13→20:50)
[2016-12-24] MEDS: ENOXAPARIN 40 MG/0.4 ML SYRINGE (J1650) SC SCH (08:13)
[2016-12-24] MEDS: SENOKOT S TAB PO SCH ×2 (09:12→20:51)
[2016-12-24] MEDS: ERTAPENEM SODIUM 1 GM in NS MINI-BAG PLUS 50 ML IV SCH (10:50)
[2016-12-24] MEDS: MORPHINE 1MG/ML IN 0.9% NACL 100ML IV BAG IV PRN (10:50)
[2016-12-25 04:45] VITALS: BP 155/82
[2016-12-25] MEDS: LR 1,000 ML IV SCH ×2 (05:05→14:01)
[2016-12-25 06:47] LABS: BASO % 0.2 % (0.0-1.0); EOS # 0.3 K/mm3 (0.0-0.50); EOS % 4.3 % (0.0-3.0); LARGE UNSTAINED CELL # 0.1 K/mm3 (0.0-0.4); LARGE UNSTAINED CELL % 1.4 % (0.0-4.0); LYMPH # 1.3 K/mm3 (1.5-4.5); LYMPH % 15.2 % (24.0-44.0); MEAN CORPUSCULAR HEMOGLOBIN 30.2 pg (27.0-33.0); MEAN CORPUSCULAR HGB CONC 34.4 g/dl (32.0-36.5); MEAN CORPUSCULAR VOLUME 87.8 fl (80.0-96.0); MONO # 0.5 K/mm3 (0.0-0.8); MONO % 6.8 % (0.0-5.0); NEUTROPHILS # 5.6 K/mm3 (1.8-7.7); NEUTROPHILS % 72.1 % (36.0-66.0); PLATELET COUNT, AUTOMATED 153 k/mm3 (150-450); RED CELL DISTRIBUTION WIDTH 12.8 % (11.5-14.5); WHITE BLOOD COUNT 7.8 K/mm3 (4.0-10.0)
[2016-12-25] MEDS: OCTREOTIDE ACETATE 100 MCG/ML VIAL (J2354) SC SCH ×3 (06:49→21:35)
[2016-12-25] MEDS: MORPHINE 1MG/ML IN 0.9% NACL 100ML IV BAG IV PRN ×2 (06:51→19:15)
[2016-12-25 07:17] LABS: ANION GAP 10 MEQ/L (8-16); BLOOD UREA NITROGEN 9 MG/DL (7-18); CALCIUM LEVEL 8.2 MG/DL (8.5-10.1); CARBON DIOXIDE LEVEL 26 MEQ/L (21-32); CHLORIDE LEVEL 98 MEQ/L (98-107); CREATININE FOR GFR 0.69 MG/DL (0.70-1.30); GLOMERULAR FILTRATION RATE > 60.0 (>60); GLUCOSE, FASTING 110 MG/DL (70-105); POTASSIUM SERUM 3.8 MEQ/L (3.5-5.1); SODIUM LEVEL 134 MEQ/L (136-145)
[2016-12-25 08:00] VITALS: BP 137/82
[2016-12-25] MEDS: SENOKOT S TAB PO SCH ×2 (09:17→21:35)
--- NOTE | 2016-12-25 09:53 | IPNPDOC ---
Subjective General Date/Time Seen The patient was seen on 12/25/16 at 09:44. Subject Chief Complaint/History The patient is a 31-year-old male admitted with a reason for visit of Ruptured Ulcer. Patient seen this morning he looks more comfortable though he still complains of a lot of pain. His KAREN drain is mainly putting out serosanguineous fluid. He reports some burping but no nausea. Not passing any flatus. He was able to manage to sit up on a chair for a while according to the nurses. No other events reported. Current Medications Current Medications Current Medications Acetaminophen (Tylenol Tab) 650 mg Q4HP PRN PO MILD PAIN or TEMP > 101; Start 12/21/16 at 12:45; Stop 01/22/17 at 12:44 Acetaminophen/ Hydrocodone Bitart ([place], Anexsia 5/325) 1 tab Q4HP PRN PO MODERATE PAIN (PS 5-7); Start 12/21/16 at 12:45; Stop 12/22/16 at 15:27; Status DC Acetaminophen/ Hydrocodone Bitart ([place], Anexsia 5/325) 2 tab Q6HP PRN PO SEVERE PAIN (PS 8-10) Last administered on 12/22/16 11:54; Start 12/21/16 at 12 :45; Stop 12/22/16 at 15:27; Status DC Diphenhydramine HCl (Benadryl) 12.5 mg Q4HP PRN IV ITCHING Last administered on 12/23/16 14:55; Start 12/22/16 at 15:30; Stop 01/22/17 at 15:29 Enoxaparin Sodium (Lovenox) 40 mg DAILY SC Last administered on 12/24/16 08:13 ; Start 12/22/16 at 09:00; Stop 12/28/16 at 08:59 Ertapenem 1 gm/ Sodium Chloride 50 ml @ 100 mls/hr ONCE PRN IV PREOP; Start at 09:30; Stop 12/21/16 at 12:44; Status DC Ertapenem 1 gm/ Sodium Chloride 50 ml @ 100 mls/hr Q24H IV ; Start 12/22/16 at 10:00; Stop 12/22/16 at 10:00; Status DC Ertapenem 1 gm/ Sodium Chloride 50 ml @ 100 mls/hr Q24H IV Last administered on 12/24/16 10:50; Start 12/22/16 at 10:00; Stop 12/30/16 at 09:59 Fentanyl Citrate (Sublimaze) 25 mcg Q5MP PRN IV MODERATE PAIN (PS 4-7); Start 12/21/16 at 13:15; Stop 12/21/16 at 14:15; Status DC Fentanyl Citrate (Sublimaze) 25 mcg Q5MP PRN IV MODERATE PAIN (PS 4-7) Last administered on 12/22/16 20:00; Start 12/22/16 at 20:15; Stop 12/22/16 at 21:15 ; Status DC Fentanyl Citrate (Sublimaze) 25 mcg Q5MP PRN IV MODERATE PAIN (PS 4-7); Start 12/23/16 at 21:50; Stop 12/23/16 at 23:30; Status DC Home Med (Med Rec Complete!) ASDIRECTED XX ; Start 12/21/16 at 07:45; Stop at 07:45; Status DC Hydromorphone HCl (Dilaudid) 0.3 mg Q5MP PRN IV MODERATE/SEVERE PAIN (PS 7-10) ; Start 12/23/16 at 21:50; Stop 12/23/16 at 23:30; Status DC Hydromorphone HCl (Dilaudid) 0.5 mg Q30M PRN IV MODERATE PAIN (PS 5-7) Last administered on 12/21/16 07:44; Start 12/21/16 at 07:15; Stop 12/21/16 at 07:44 ; Status DC Hydromorphone HCl (Dilaudid) 1 mg Q3HP PRN IV MILD PAIN (PS 1-4) Last administered on 12/24/16 08:09; Start 12/24/16 at 07:15; Stop 12/24/16 at 09:27 ; Status DC Lactated Ringer's 1,000 ml @ 100 mls/hr Q10H IV ; Start 12/21/16 at 13:15; Stop 12/21/16 at 14:15; Status DC Lactated Ringer's 1,000 ml @ 100 mls/hr Q10H IV Last administered on 19:30; Start 12/22/16 at 20:15; Stop 12/22/16 at 21:15; Status DC Lactated Ringer's 1,000 ml @ 150 mls/hr Q6H40M IV ; Start 12/21/16 at 09:30; Stop 12/21/16 at 12:45; Status DC Lactated Ringer's 1,000 ml @ 150 mls/hr Q6H40M IV Last administered on 05:05; Start 12/21/16 at 12:38; Stop 01/22/17 at 12:37 Lactated Ringer's 1,000 ml @ 150 mls/hr Q6H40M IV ; Start 12/23/16 at 21:50; Stop 12/23/16 at 23:30; Status DC Meperidine HCl (Demerol) 12.5 mg Q5MP PRN IV SHIVERING Last administered on 13:18; Start 12/21/16 at 13:15; Stop 12/21/16 at 14:15; Status DC Meperidine HCl (Demerol) 12.5 mg Q5MP PRN IV SHIVERING; Start 12/23/16 at 21:50 ; Stop 12/23/16 at 23:30; Status DC Metoclopramide HCl (REGLAN INJection) 10 mg Q6HP PRN IV NAUSEA OR VOMITING; Start 12/21/16 at 13:15; Stop 12/21/16 at 14:15; Status DC Metoclopramide HCl (REGLAN INJection) 10 mg Q6HP PRN IV NAUSEA OR VOMITING; Start 12/23/16 at 21:50; Stop 12/23/16 at 23:30; Status DC Morphine Sulfate (Morphine Sulfate In 0.9%Nacl Iv Bag) Concentration 1 mg/ml ASDIRECTED PRN IV SEE LABEL COMMENTS Last administered on 12/25/16 06:51; Start 12/22/16 at 15:30; Stop 12/29/16 at 15:29 Morphine Sulfate (Morphine Sulfate Inj) 4 mg Q2HP PRN IV SEVERE PAIN (PS 8-10) Last administered on 12/22/16 13:45; Start 12/21/16 at 12:45; Stop 12/22/16 at 15:27; Status DC Nalbuphine HCl (Nubain) 2.5 mg Q6HP PRN IV PRURITIS; Start 12/22/16 at 15:30; Stop 12/29/16 at 15:29 Naloxone HCl (Narcan) 0.1 mg Q5MP PRN IV SEE LABEL COMMENTS; Start 12/22/16 at 15:30; Stop 01/21/17 at 15:29 Non-Formulary Medication (Epidural/WEB SEARCH EVALUATOR [place]) USE THIS ENTRY TO VEND ... Q1M PRN XX SEE LABEL COMMENTS; Start 12/22/16 at 15:30; Stop 01/21/17 at 15:29 Octreotide Acetate (SandoSTATIN) 100 mcg Q8H SC Last administered on 12/25/16 06:49; Start 12/23/16 at 06:00; Stop 01/22/17 at 05:59 Ondansetron HCl (ZOFRAN INJection) 4 mg Q4HP PRN IV NAUSEA OR VOMITING; Start 12/21/16 at 13:15; Stop 12/21/16 at 14:15; Status DC Ondansetron HCl (ZOFRAN INJection) 4 mg Q4HP PRN IV NAUSEA OR VOMITING; Start 12/22/16 at 20:15; Stop 12/22/16 at 21:15; Status DC Ondansetron HCl (ZOFRAN INJection) 4 mg Q4HP PRN IV NAUSEA OR VOMITING; Start 12/23/16 at 21:50; Stop 12/23/16 at 23:30; Status DC Ondansetron HCl (ZOFRAN INJection) 4 mg Q6HP PRN IV NAUSEA OR VOMITING; Start 12/21/16 at 12:45; Stop 12/22/16 at 15:42; Status DC Ondansetron HCl (ZOFRAN INJection) 4 mg Q6HP PRN IV NAUSEA; Start 12/22/16 at 15:30; Stop 01/22/17 at 15:29 Pantoprazole Sodium (Protonix) 40 mg Q12H IV Last administered on 12/24/16 20: 50; Start 12/21/16 at 21:00; Stop 01/22/17 at 20:59 Senna/Docusate Sodium (Senokot S) 1 tab BID PO Last administered on 12/22/16 08:22; Start 12/21/16 at 21:00; Stop 01/22/17 at 20:59 Sodium Chloride 1,000 ml @ 15 mls/hr Q24H IV ; Start 12/22/16 at 15:24; Stop at 15:37; Status DC Sodium Chloride 1,000 ml @ 200 mls/hr Q5H IV Last administered on 12/21/16 07 :30; Start 12/21/16 at 07:30; Stop 12/21/16 at 09:19; Status DC Sucralfate (Carafate Suspension) 1 gm QID PO Last administered on 12/24/16 20: 50; Start 12/22/16 at 09:00; Stop 01/22/17 at 08:59 Sucralfate (Carafate) 1 gm QID PO ; Start 12/22/16 at 09:00; Stop 12/22/16 at 10 :23; Status DC Trazodone HCl (Desyrel) 100 mg QHSP PRN PO INSOMNIA Last administered on 22:38; Start 12/21/16 at 22:30; Stop 01/22/17 at 22:29 Allergies Coded Allergies: No Known Allergies (Unverified , 12/11/16) Objective Physical Examination Examination GENERAL APPEARANCE:Patient seen, laying in bed, awake, alert, and oriented. Looks and sounds more comfortable than he has been the past few days. SKIN: Warm and moist. HEENT: Normocephalic, atraumatic. [place] palpebral conjunctiva, anicteric sclerae. Lips and mucosa appear moist. NECK: Supple, no thyromegaly. No obvious jugular venous distention. LUNGS: Clear to auscultation bilaterally. No wheezing appreciated. HEART: No chest wall abnormalities. Regular rate and rhythm with no murmurs appreciated. ABDOMEN: Abdomen is , soft, mildly distended, tympanitic, quiet. Abdominal dressings are intact. Biliary drain is draining bile appropriately. The KAREN drain has slightly concentrated serosanguineous fluid more in the serous side. The gastrostomy tube was minimal bluish drainage from the methylene blue as expected. The jejunostomy tube is capped, .moderately tender on palpation but no rebound guarding. EXTREMITIES: Mild edema. Vital Signs Vital Signs Date Time Temp Pulse Resp B/P (MAP) Pulse Ox O2 Delivery O2 Flow Rate FiO2 12/25/16 08:00 97.9 73 18 137/82 (100) 99 Room Air 7/27/17 07:49 2.0 I&Os I&O- Last 24 Hours up to 6 AM 12/25/16 06:00 Intake Total 3234 ml Output Total 1690 ml Balance 1544 ml Laboratory Data Labs 24H Laboratory Tests 2 12/25/16 06:31: Anion Gap 10, Glomerular Filtration Rate > 60.0, Blood Urea Nitrogen 9, Creatinine 0.69L, Sodium Level 134L, Potassium Level 3.8, Chloride Level 98, Carbon Dioxide Level 26, Calcium Level 8.2L 12/25/16 06:32: White Blood Count 7.8, Red Blood Count 4.50, Hemoglobin 13.6L, Hematocrit 39.5L , Mean Corpuscular Volume 87.8, Mean Corpuscular Hemoglobin 30.2, Mean Corpuscular Hemoglobin Concent 34.4, Red Cell Distribution Width 12.8, Platelet Count 153, Neutrophils (%) (Auto) 72.1H, Lymphocytes (%) (Auto) 15.2L, Monocytes (%) (Auto) 6.8H, Eosinophils (%) (Auto) 4.3H, Basophils (%) (Auto) 0.2 , Neutrophils # (Auto) 5.6, Lymphocytes # (Auto) 1.3L, Monocytes # (Auto) 0.5, Eosinophils # (Auto) 0.3, Basophils # (Auto) 0.0, Large Unclassified Cells % 1.4 , Large Unclassified Cells # 0.1 CBC/BMP Laboratory Tests 12/25/16 06:31 Calcium Level 8.2 L 12/25/16 06:32 Red Blood Count 4.50, Mean Corpuscular Volume 87.8, Mean Corpuscular Hemoglobin 30.2, Mean Corpuscular Hemoglobin Concent 34.4, Red Cell Distribution Width 12.8 , Neutrophils (%) (Auto) 72.1 H, Lymphocytes (%) (Auto) 15.2 L, Monocytes (%) ( Auto) 6.8 H, Eosinophils (%) (Auto) 4.3 H, Basophils (%) (Auto) 0.2, Neutrophils # (Auto) 5.6, Lymphocytes # (Auto) 1.3 L, Monocytes # (Auto) 0.5, Eosinophils # (Auto) 0.3, Basophils # (Auto) 0.0 Impression Perforated duodenal ulcer status post repair of duodenal ulcer, cholecystostomy tube, gastrostomy tube, feeding jejunostomy tube postop day 2, previous attempts at repair postop day 3, postop day 4 His KAREN drain is mainly serous no evidence of ongoing leakage. He still complains of pain but he looks more comfortable now. I will start to give him we will diuresis and come down and his IV fluids. We will try him on tube feeds and see how he tolerates this. I spoke to him about getting out of bed and taking incentive spirometer is 4 deep breathing. I think he is slowly getting better at this point. Plan / VTE VTE Prophylaxis Ordered?: Yes Plan / Urinary Catheter Reason for insertion/continuin: Perioperative NICK ENGLE MD Dec 25, 2016 09:52
[2016-12-25] MEDS: SUCRALFATE SUSP 1GM/10ML UD PO SCH ×4 (10:01→21:35)
[2016-12-25] MEDS: ERTAPENEM SODIUM 1 GM in NS MINI-BAG PLUS 50 ML IV SCH (10:02)
[2016-12-25] MEDS: PANTOPRAZOLE 40MG INJ (PROTONIX) (C9113) IV SCH ×2 (10:02→21:35)
[2016-12-25] MEDS: ENOXAPARIN 40 MG/0.4 ML SYRINGE (J1650) SC SCH (10:02)
[2016-12-25] MEDS: FUROSEMIDE 20 MG/2 ML VIAL (J1940) IV SCH (10:54)
[2016-12-25 12:00] VITALS: BP 134/84
[2016-12-25] MEDS: diphenhydrAMINE INJ 50MG/ML VIAL (J1200) IV PRN ×2 (14:02→22:13)
[2016-12-25 16:00] VITALS: BP 144/91
[2016-12-25 19:40] VITALS: BP 155/88
[2016-12-25] MEDS: traZODone 50 MG TAB PO SCH (21:35)
[2016-12-25 23:59] VITALS: BP 151/88
[2016-12-26 04:42] VITALS: BP 166/84
[2016-12-26 05:36] LABS: ADD MANUAL DIFFER YES; MEAN CORPUSCULAR HEMOGLOBIN 30.2 pg (27.0-33.0); MEAN CORPUSCULAR HGB CONC 34.5 g/dl (32.0-36.5); MEAN CORPUSCULAR VOLUME 87.6 fl (80.0-96.0); PLATELET COUNT, AUTOMATED 166 k/mm3 (150-450); RED CELL DISTRIBUTION WIDTH 12.6 % (11.5-14.5); WHITE BLOOD COUNT 5.9 K/mm3 (4.0-10.0)
[2016-12-26] MEDS: OCTREOTIDE ACETATE 100 MCG/ML VIAL (J2354) SC SCH ×3 (05:49→22:12)
[2016-12-26] MEDS: LR 1,000 ML IV SCH ×2 (05:50→22:17)
[2016-12-26 05:58] LABS: ANION GAP 9 MEQ/L (8-16); BLOOD UREA NITROGEN 10 MG/DL (7-18); CALCIUM LEVEL 7.9 MG/DL (8.5-10.1); CARBON DIOXIDE LEVEL 28 MEQ/L (21-32); CHLORIDE LEVEL 104 MEQ/L (98-107); GLOMERULAR FILTRATION RATE > 60.0 (>60); GLUCOSE, FASTING 104 MG/DL (70-105); POTASSIUM SERUM 3.8 MEQ/L (3.5-5.1); SODIUM LEVEL 141 MEQ/L (136-145)
[2016-12-26 06:55] LABS: EOSINOPHILS 10 % (0-5)
[2016-12-26 08:15] VITALS: BP 137/86
--- NOTE | 2016-12-26 10:02 | IPNPDOC ---
Subjective General Date/Time Seen The patient was seen on 12/26/16 at 09:55. Subject Chief Complaint/History The patient is a 31-year-old male admitted with a reason for visit of Ruptured Ulcer. Patient continues to do well after his last surgery. He looks more comofrtable today. His KAREN drain remains serosanguenous. He is tolerating trickle feeds through the jejunostomy feeding tube. He reports his pain is about 5/5. Current Medications Current Medications Current Medications Acetaminophen (Tylenol Tab) 650 mg Q4HP PRN PO MILD PAIN or TEMP > 101; Start 12/21/16 at 12:45; Stop 01/22/17 at 12:44 Acetaminophen/ Hydrocodone Bitart ([place], Anexsia 5/325) 1 tab Q4HP PRN PO MODERATE PAIN (PS 5-7); Start 12/21/16 at 12:45; Stop 12/22/16 at 15:27; Status DC Acetaminophen/ Hydrocodone Bitart ([place], Anexsia 5/325) 2 tab Q6HP PRN PO SEVERE PAIN (PS 8-10) Last administered on 12/22/16 11:54; Start 12/21/16 at 12 :45; Stop 12/22/16 at 15:27; Status DC Diphenhydramine HCl (Benadryl) 12.5 mg Q4HP PRN IV ITCHING Last administered on 12/25/16 22:13; Start 12/22/16 at 15:30; Stop 01/22/17 at 15:29 Enoxaparin Sodium (Lovenox) 40 mg DAILY SC Last administered on 12/25/16 10:02 ; Start 12/22/16 at 09:00; Stop 12/28/16 at 08:59 Ertapenem 1 gm/ Sodium Chloride 50 ml @ 100 mls/hr ONCE PRN IV PREOP; Start at 09:30; Stop 12/21/16 at 12:44; Status DC Ertapenem 1 gm/ Sodium Chloride 50 ml @ 100 mls/hr Q24H IV ; Start 12/22/16 at 10:00; Stop 12/22/16 at 10:00; Status DC Ertapenem 1 gm/ Sodium Chloride 50 ml @ 100 mls/hr Q24H IV Last administered on 12/25/16 10:02; Start 12/22/16 at 10:00; Stop 12/30/16 at 09:59 Fentanyl Citrate (Sublimaze) 25 mcg Q5MP PRN IV MODERATE PAIN (PS 4-7); Start 12/21/16 at 13:15; Stop 12/21/16 at 14:15; Status DC Fentanyl Citrate (Sublimaze) 25 mcg Q5MP PRN IV MODERATE PAIN (PS 4-7) Last administered on 12/22/16 20:00; Start 12/22/16 at 20:15; Stop 12/22/16 at 21:15 ; Status DC Fentanyl Citrate (Sublimaze) 25 mcg Q5MP PRN IV MODERATE PAIN (PS 4-7); Start 12/23/16 at 21:50; Stop 12/23/16 at 23:30; Status DC Furosemide (LASIX injection) 20 mg DAILY IV Last administered on 12/25/16 10: 54; Start 12/25/16 at 09:00; Stop 01/24/17 at 08:59 Home Med (Med Rec Complete!) ASDIRECTED XX ; Start 12/21/16 at 07:45; Stop at 07:45; Status DC Hydromorphone HCl (Dilaudid) 0.3 mg Q5MP PRN IV MODERATE/SEVERE PAIN (PS 7-10) ; Start 12/23/16 at 21:50; Stop 12/23/16 at 23:30; Status DC Hydromorphone HCl (Dilaudid) 0.5 mg Q30M PRN IV MODERATE PAIN (PS 5-7) Last administered on 12/21/16 07:44; Start 12/21/16 at 07:15; Stop 12/21/16 at 07:44 ; Status DC Hydromorphone HCl (Dilaudid) 1 mg Q3HP PRN IV MILD PAIN (PS 1-4) Last administered on 12/24/16 08:09; Start 12/24/16 at 07:15; Stop 12/24/16 at 09:27 ; Status DC Lactated Ringer's 1,000 ml @ 60 mls/hr [id number] IV Last administered on 05:50; Start 12/21/16 at 12:38; Stop 01/22/17 at 12:37 Lactated Ringer's 1,000 ml @ 100 mls/hr Q10H IV ; Start 12/21/16 at 13:15; Stop 12/21/16 at 14:15; Status DC Lactated Ringer's 1,000 ml @ 100 mls/hr Q10H IV Last administered on 19:30; Start 12/22/16 at 20:15; Stop 12/22/16 at 21:15; Status DC Lactated Ringer's 1,000 ml @ 150 mls/hr Q6H40M IV ; Start 12/21/16 at 09:30; Stop 12/21/16 at 12:45; Status DC Lactated Ringer's 1,000 ml @ 150 mls/hr Q6H40M IV ; Start 12/23/16 at 21:50; Stop 12/23/16 at 23:30; Status DC Meperidine HCl (Demerol) 12.5 mg Q5MP PRN IV SHIVERING Last administered on 13:18; Start 12/21/16 at 13:15; Stop 12/21/16 at 14:15; Status DC Meperidine HCl (Demerol) 12.5 mg Q5MP PRN IV SHIVERING; Start 12/23/16 at 21:50 ; Stop 12/23/16 at 23:30; Status DC Metoclopramide HCl (REGLAN INJection) 10 mg Q6HP PRN IV NAUSEA OR VOMITING; Start 12/21/16 at 13:15; Stop 12/21/16 at 14:15; Status DC Metoclopramide HCl (REGLAN INJection) 10 mg Q6HP PRN IV NAUSEA OR VOMITING; Start 12/23/16 at 21:50; Stop 12/23/16 at 23:30; Status DC Morphine Sulfate (Morphine Sulfate In 0.9%Nacl Iv Bag) Concentration 1 mg/ml ASDIRECTED PRN IV SEE LABEL COMMENTS Last administered on 12/25/16 19:15; Start 12/22/16 at 15:30; Stop 12/29/16 at 15:29 Morphine Sulfate (Morphine Sulfate Inj) 4 mg Q2HP PRN IV SEVERE PAIN (PS 8-10) Last administered on 12/22/16 13:45; Start 12/21/16 at 12:45; Stop 12/22/16 at 15:27; Status DC Nalbuphine HCl (Nubain) 2.5 mg Q6HP PRN IV PRURITIS; Start 12/22/16 at 15:30; Stop 12/29/16 at 15:29 Naloxone HCl (Narcan) 0.1 mg Q5MP PRN IV SEE LABEL COMMENTS; Start 12/22/16 at 15:30; Stop 01/21/17 at 15:29 Non-Formulary Medication (Epidural/SAMPLE BODY BUILDER [place]) USE THIS ENTRY TO VEND ... Q1M PRN XX SEE LABEL COMMENTS; Start 12/22/16 at 15:30; Stop 01/21/17 at 15:29 Octreotide Acetate (SandoSTATIN) 100 mcg Q8H SC Last administered on 12/26/16 05:49; Start 12/23/16 at 06:00; Stop 01/22/17 at 05:59 Ondansetron HCl (ZOFRAN INJection) 4 mg Q4HP PRN IV NAUSEA OR VOMITING; Start 12/21/16 at 13:15; Stop 12/21/16 at 14:15; Status DC Ondansetron HCl (ZOFRAN INJection) 4 mg Q4HP PRN IV NAUSEA OR VOMITING; Start 12/22/16 at 20:15; Stop 12/22/16 at 21:15; Status DC Ondansetron HCl (ZOFRAN INJection) 4 mg Q4HP PRN IV NAUSEA OR VOMITING; Start 12/23/16 at 21:50; Stop 12/23/16 at 23:30; Status DC Ondansetron HCl (ZOFRAN INJection) 4 mg Q6HP PRN IV NAUSEA OR VOMITING; Start 12/21/16 at 12:45; Stop 12/22/16 at 15:42; Status DC Ondansetron HCl (ZOFRAN INJection) 4 mg Q6HP PRN IV NAUSEA; Start 12/22/16 at 15:30; Stop 01/22/17 at 15:29 Pantoprazole Sodium (Protonix) 40 mg Q12H IV Last administered on 12/25/16 21: 35; Start 12/21/16 at 21:00; Stop 01/22/17 at 20:59 Senna/Docusate Sodium (Senokot S) 1 tab BID PO Last administered on 7/27/17at 21:35; Start 12/21/16 at 21:00; Stop 01/22/17 at 20:59 Sodium Chloride 1,000 ml @ 15 mls/hr Q24H IV ; Start 12/22/16 at 15:24; Stop at 15:37; Status DC Sodium Chloride 1,000 ml @ 200 mls/hr Q5H IV Last administered on 12/21/16 07 :30; Start 12/21/16 at 07:30; Stop 12/21/16 at 09:19; Status DC Sucralfate (Carafate Suspension) 1 gm QID PO Last administered on 12/25/16 21: 35; Start 12/22/16 at 09:00; Stop 01/22/17 at 08:59 Sucralfate (Carafate) 1 gm QID PO ; Start 12/22/16 at 09:00; Stop 12/22/16 at 10 :23; Status DC Trazodone HCl (Desyrel) 50 mg QHS PO Last administered on 12/25/16 21:35; Start 12/25/16 at 21:00; Stop 01/24/17 at 20:59 Trazodone HCl (Desyrel) 100 mg QHSP PRN PO INSOMNIA Last administered on 22:38; Start 12/21/16 at 22:30; Stop 01/22/17 at 22:29 Allergies Coded Allergies: No Known Allergies (Unverified , 12/11/16) Objective Physical Examination Examination GENERAL APPEARANCE:Patient seen, laying in bed, awake, alert, and oriented. Comfortable, in no acute distress. SKIN: Warm and moist. HEENT: Normocephalic, atraumatic. [place] palpebral conjunctiva, anicteric sclerae. Lips and mucosa appear moist. NECK: Supple, no thyromegaly. No obvious jugular venous distention. LUNGS: Clear to auscultation bilaterally. No wheezing appreciated. HEART: No chest wall abnormalities. Regular rate and rhythm with no murmurs appreciated. ABDOMEN: Abdomen is mild distended, soft, beginning regular bowel sounds. Biliary drain working, KAREN drain serosanguenous, Gastrostomy tube to suction working, Jejunostomy tube getting used for tube feedings. Dressings intact, clean, replaced.. EXTREMITIES: Improving extremity edema. Vital Signs Vital Signs Date Time Temp Pulse Resp B/P (MAP) Pulse Ox O2 Delivery O2 Flow Rate FiO2 12/26/16 08:15 98.5 70 18 137/86 (103) 94 Room Air 12/25/16 12:00 2.0 I&Os I&O- Last 24 Hours up to 6 AM 12/26/16 05:59 Intake Total 1384 ml Output Total 4090 ml Balance -2706 ml KAREN drain = 80 mLs serosanguenous Laboratory Data Labs 24H CBC/BMP Laboratory Tests 12/26/16 05:06 Red Blood Count 4.40, Mean Corpuscular Volume 87.6, Mean Corpuscular Hemoglobin 30.2, Mean Corpuscular Hemoglobin Concent 34.5, Red Cell Distribution Width 12.6 , Calcium Level 7.9 L Impression POD 3 Re-do repair of duodenal perforation Cholecystostomy tube placement POD3 Gastrostomy tube placement POD3 Feeding Jejunostomy Will give him one more dose of lasix today and d/c macias catheter later on the day I think he continues to do well. No signs of further leakage from the duodenal perforation. I think diverting exp the bile from the area has helped maintain the seal (since hsi gastrostomy was initially not putting out much). We will advance the jejunostomy feeding. Encouraged him to get up and ambulate today. Sometime next week will do an upper GI series to check for leakage at the repair site. Plan / VTE VTE Prophylaxis Ordered?: Yes Plan / Urinary Catheter Reason for insertion/continuin: Perioperative NICK ENGLE MD Dec 26, 2016 10:01
[2016-12-26] MEDS: SENOKOT S TAB PO SCH ×2 (10:07→20:14)
[2016-12-26] MEDS: SUCRALFATE SUSP 1GM/10ML UD PO SCH ×4 (10:07→20:14)
[2016-12-26] MEDS: FUROSEMIDE 20 MG/2 ML VIAL (J1940) IV SCH (10:08)
[2016-12-26] MEDS: ENOXAPARIN 40 MG/0.4 ML SYRINGE (J1650) SC SCH (10:08)
[2016-12-26] MEDS: PANTOPRAZOLE 40MG INJ (PROTONIX) (C9113) IV SCH ×2 (10:08→20:15)
[2016-12-26] MEDS: ERTAPENEM SODIUM 1 GM in NS MINI-BAG PLUS 50 ML IV SCH (10:09)
[2016-12-26 12:00] VITALS: BP 126/85
[2016-12-26] MEDS: MORPHINE 1MG/ML IN 0.9% NACL 100ML IV BAG IV PRN (14:42)
[2016-12-26 16:00] VITALS: BP 136/85
[2016-12-26 20:00] VITALS: BP 138/88
[2016-12-26] MEDS: diphenhydrAMINE INJ 50MG/ML VIAL (J1200) IV PRN (20:25)
[2016-12-26] MEDS: traZODone 50 MG TAB PO SCH (22:12)
[2016-12-27] VITALS: BP 138/83
[2016-12-27 04:00] VITALS: BP 134/76
[2016-12-27 05:29] LABS: BASO % 0.6 % (0.0-1.0); EOS # 0.5 K/mm3 (0.0-0.50); EOS % 9.3 % (0.0-3.0); LARGE UNSTAINED CELL # 0.1 K/mm3 (0.0-0.4); LARGE UNSTAINED CELL % 2.1 % (0.0-4.0); LYMPH # 1.7 K/mm3 (1.5-4.5); LYMPH % 31.2 % (24.0-44.0); MEAN CORPUSCULAR HEMOGLOBIN 30.4 pg (27.0-33.0); MEAN CORPUSCULAR HGB CONC 34.9 g/dl (32.0-36.5); MEAN CORPUSCULAR VOLUME 87.2 fl (80.0-96.0); MONO # 0.4 K/mm3 (0.0-0.8); MONO % 8.5 % (0.0-5.0); NEUTROPHILS # 2.4 K/mm3 (1.8-7.7); NEUTROPHILS % 48.2 % (36.0-66.0); PLATELET COUNT, AUTOMATED 204 k/mm3 (150-450); RED CELL DISTRIBUTION WIDTH 12.8 % (11.5-14.5)
[2016-12-27 05:38] LABS: ANION GAP 9 MEQ/L (8-16); BLOOD UREA NITROGEN 13 MG/DL (7-18); CALCIUM LEVEL 8.1 MG/DL (8.5-10.1); CARBON DIOXIDE LEVEL 27 MEQ/L (21-32); CHLORIDE LEVEL 103 MEQ/L (98-107); CREATININE FOR GFR 0.81 MG/DL (0.70-1.30); GLOMERULAR FILTRATION RATE > 60.0 (>60); GLUCOSE, FASTING 98 MG/DL (70-105); POTASSIUM SERUM 3.5 MEQ/L (3.5-5.1); SODIUM LEVEL 139 MEQ/L (136-145)
[2016-12-27] MEDS: OCTREOTIDE ACETATE 100 MCG/ML VIAL (J2354) SC SCH ×3 (06:39→21:32)
[2016-12-27] MEDS: MORPHINE 1MG/ML IN 0.9% NACL 100ML IV BAG IV PRN (07:31)
[2016-12-27 08:00] VITALS: BP 132/80
[2016-12-27] MEDS: SENOKOT S TAB PO SCH ×2 (08:37→21:31)
[2016-12-27] MEDS: PANTOPRAZOLE 40MG INJ (PROTONIX) (C9113) IV SCH ×2 (08:37→21:00)
[2016-12-27] MEDS: ENOXAPARIN 40 MG/0.4 ML SYRINGE (J1650) SC SCH (08:37)
[2016-12-27] MEDS: SUCRALFATE SUSP 1GM/10ML UD PO SCH ×4 (08:38→21:31)
[2016-12-27] MEDS: FUROSEMIDE 20 MG/2 ML VIAL (J1940) IV SCH (08:38)
[2016-12-27] MEDS: ERTAPENEM SODIUM 1 GM in NS MINI-BAG PLUS 50 ML IV SCH (10:59)
[2016-12-27 12:00] VITALS: BP 128/80
[2016-12-27] MEDS: LR 1,000 ML IV SCH (13:34)
[2016-12-27 16:00] VITALS: BP 145/84
[2016-12-27 20:00] VITALS: BP 160/88
[2016-12-27] MEDS: traZODone 50 MG TAB PO SCH (21:31)
[2016-12-28] VITALS (7 sets, daily range): BP systolic 116–140; BP diastolic 65–86
[2016-12-28 05:34] LABS: BASO % 0.7 % (0.0-1.0); EOS # 0.4 K/mm3 (0.0-0.50); LARGE UNSTAINED CELL # 0.1 K/mm3 (0.0-0.4); LARGE UNSTAINED CELL % 2.7 % (0.0-4.0); LYMPH # 1.6 K/mm3 (1.5-4.5); LYMPH % 34.1 % (24.0-44.0); MEAN CORPUSCULAR HEMOGLOBIN 29.9 pg (27.0-33.0); MEAN CORPUSCULAR HGB CONC 34.4 g/dl (32.0-36.5); MEAN CORPUSCULAR VOLUME 86.9 fl (80.0-96.0); MONO # 0.4 K/mm3 (0.0-0.8); MONO % 9.3 % (0.0-5.0); NEUTROPHILS # 1.9 K/mm3 (1.8-7.7); NEUTROPHILS % 44.2 % (36.0-66.0); PLATELET COUNT, AUTOMATED 214 k/mm3 (150-450); RED CELL DISTRIBUTION WIDTH 12.7 % (11.5-14.5); WHITE BLOOD COUNT 4.3 K/mm3 (4.0-10.0)
[2016-12-28] MEDS: OCTREOTIDE ACETATE 100 MCG/ML VIAL (J2354) SC SCH ×3 (05:46→21:11)
[2016-12-28] MEDS: LR 1,000 ML IV SCH (05:46)
[2016-12-28 05:52] LABS: ALBUMIN 2.2 GM/DL (3.2-5.2); ALBUMIN/GLOBULIN RATIO 0.61 (1.00-1.93); ALKALINE PHOSPHATASE 64 U/L (45-117); ALT/SGPT 20 U/L (12-78); ANION GAP 8 MEQ/L (8-16); AST/SGOT 15 U/L (15-37); BILIRUBIN,TOTAL 0.5 MG/DL (0.2-1.0); BLOOD UREA NITROGEN 16 MG/DL (7-18); CALCIUM LEVEL 8.3 MG/DL (8.5-10.1); CARBON DIOXIDE LEVEL 29 MEQ/L (21-32); CHLORIDE LEVEL 107 MEQ/L (98-107); CREATININE FOR GFR 0.83 MG/DL (0.70-1.30); GLOMERULAR FILTRATION RATE > 60.0 (>60); GLUCOSE, FASTING 132 MG/DL (70-105); POTASSIUM SERUM 3.4 MEQ/L (3.5-5.1); SODIUM LEVEL 144 MEQ/L (136-145); TOTAL PROTEIN 5.8 GM/DL (6.4-8.2)
[2016-12-28] MEDS: MORPHINE 1MG/ML IN 0.9% NACL 100ML IV BAG IV PRN ×2 (07:10→23:51)
[2016-12-28] MEDS: SUCRALFATE SUSP 1GM/10ML UD PO SCH ×4 (09:33→21:10)
[2016-12-28] MEDS: SENOKOT S TAB PO SCH ×2 (09:33→21:11)
[2016-12-28] MEDS: PANTOPRAZOLE 40MG INJ (PROTONIX) (C9113) IV SCH ×2 (09:33→21:10)
[2016-12-28] MEDS: ENOXAPARIN 40 MG/0.4 ML SYRINGE (J1650) SC SCH (09:33)
[2016-12-28] MEDS: ERTAPENEM SODIUM 1 GM in NS MINI-BAG PLUS 50 ML IV SCH (09:34)
[2016-12-28] MEDS: FUROSEMIDE 20 MG/2 ML VIAL (J1940) IV SCH (11:21)
[2016-12-28] MEDS: POTASSIUM CHLORIDE 10 MEQ SR TABLET PO SCH ×3 (13:47→21:11)
[2016-12-28] MEDS: traZODone 50 MG TAB PO SCH (21:10)
[2016-12-29 04:53] LABS: BASO % 1.1 % (0.0-1.0); EOS # 0.4 K/mm3 (0.0-0.50); EOS % 9.4 % (0.0-3.0); LARGE UNSTAINED CELL # 0.1 K/mm3 (0.0-0.4); LARGE UNSTAINED CELL % 2.8 % (0.0-4.0); LYMPH # 1.9 K/mm3 (1.5-4.5); LYMPH % 36.5 % (24.0-44.0); MEAN CORPUSCULAR HEMOGLOBIN 29.7 pg (27.0-33.0); MEAN CORPUSCULAR HGB CONC 33.9 g/dl (32.0-36.5); MEAN CORPUSCULAR VOLUME 87.9 fl (80.0-96.0); MONO # 0.4 K/mm3 (0.0-0.8); MONO % 8.6 % (0.0-5.0); NEUTROPHILS % 41.6 % (36.0-66.0); PLATELET COUNT, AUTOMATED 240 k/mm3 (150-450); RED CELL DISTRIBUTION WIDTH 12.8 % (11.5-14.5); WHITE BLOOD COUNT 4.8 K/mm3 (4.0-10.0)
[2016-12-29 05:00] VITALS: BP 143/84
[2016-12-29 05:15] LABS: ALBUMIN 2.4 GM/DL (3.2-5.2); ALBUMIN/GLOBULIN RATIO 0.69 (1.00-1.93); ALKALINE PHOSPHATASE 86 U/L (45-117); ALT/SGPT 57 U/L (12-78); ANION GAP 9 MEQ/L (8-16); AST/SGOT 40 U/L (15-37); BILIRUBIN,TOTAL 0.6 MG/DL (0.2-1.0); BLOOD UREA NITROGEN 19 MG/DL (7-18); CALCIUM LEVEL 8.4 MG/DL (8.5-10.1); CARBON DIOXIDE LEVEL 28 MEQ/L (21-32); CHLORIDE LEVEL 108 MEQ/L (98-107); CREATININE FOR GFR 0.94 MG/DL (0.70-1.30); GLOMERULAR FILTRATION RATE > 60.0 (>60); GLUCOSE, FASTING 124 MG/DL (70-105); POTASSIUM SERUM 3.8 MEQ/L (3.5-5.1); SODIUM LEVEL 145 MEQ/L (136-145); TOTAL PROTEIN 5.9 GM/DL (6.4-8.2)
[2016-12-29] MEDS: OCTREOTIDE ACETATE 100 MCG/ML VIAL (J2354) SC SCH ×3 (06:51→21:20)
[2016-12-29 08:00] VITALS: BP 125/68
[2016-12-29] MEDS: ENOXAPARIN 40 MG/0.4 ML SYRINGE (J1650) SC SCH (09:51)
[2016-12-29] MEDS: PANTOPRAZOLE 40MG INJ (PROTONIX) (C9113) IV SCH ×2 (09:51→21:21)
[2016-12-29] MEDS: SUCRALFATE SUSP 1GM/10ML UD PO SCH ×4 (09:52→21:21)
[2016-12-29] MEDS: ERTAPENEM SODIUM 1 GM in NS MINI-BAG PLUS 50 ML IV SCH (09:53)
[2016-12-29] MEDS: SENOKOT S TAB PO SCH ×2 (10:03→21:22)
--- NOTE | 2016-12-29 11:17 | IPNPDOC ---
Text Note Date of Service The patient was seen on 12/29/16. NOTE Patient was seen and evaluated today. Weekend notes from a covering surgeon reviewed. Discussed with nursing staff. Patient looks a lot comfortable today. He reports his pain is just about 4 out of 10. Still on SEAT TRIMMER. The gastrostomy tube has been clamped since yesterday. No signs of leakage. We will get an upper GI series tomorrow. If this is negative for any leakage we'll clamp the biliary tube. If no signs of further leakage will start on oral feeding. VS,Fishbone, I+O VS, Fishbone, I+O Laboratory Tests 12/29/16 04:17 Red Blood Count 4.22 L, Mean Corpuscular Volume 87.9, Mean Corpuscular Hemoglobin 29.7, Mean Corpuscular Hemoglobin Concent 33.9, Red Cell Distribution Width 12.8, Neutrophils (%) (Auto) 41.6, Lymphocytes (%) (Auto) 36.5, Monocytes (%) (Auto) 8.6 H, Eosinophils (%) (Auto) 9.4 H, Basophils (%) ( Auto) 1.1 H, Neutrophils # (Auto) 2.0, Lymphocytes # (Auto) 1.9, Monocytes # ( Auto) 0.4, Eosinophils # (Auto) 0.4, Basophils # (Auto) 0.0, Calcium Level 8.4 L , Aspartate Amino Transf (AST/SGOT) 40 H, Alanine Aminotransferase (ALT/SGPT) 57 , Alkaline Phosphatase 86, Total Bilirubin 0.6, Total Protein 5.9 L, Albumin 2.4 L Vital Signs Date Time Temp Pulse Resp B/P (MAP) Pulse Ox O2 Delivery O2 Flow Rate FiO2 12/29/16 08:00 98.2 60 18 125/68 (87) 97 Room Air 12/25/16 12:00 2.0 I&O- Last 24 Hours up to 6 AM 12/29/16 05:59 Intake Total 1950 ml Output Total 2870 ml Balance -920 ml NICK ENGLE MD Dec 29, 2016 11:17
[2016-12-29] MEDS ORDERED: GASTROGRAFIN SOLUTION 30ML (Q9963) As Ordered ONE (11:24)
[2016-12-29 12:00] VITALS: BP 136/68
[2016-12-29 16:00] VITALS: BP 129/66
[2016-12-29 18:20] VITALS: BP 137/68
[2016-12-29] MEDS: LR 1,000 ML IV SCH (18:37)
[2016-12-29] MEDS: traZODone 50 MG TAB PO SCH (21:21)
[2016-12-29 22:00] VITALS: BP 120/77
[2016-12-30] VITALS (7 sets, daily range): BP systolic 127–141; BP diastolic 68–82
[2016-12-30] MEDS: MORPHINE 1MG/ML IN 0.9% NACL 100ML IV BAG IV PRN (00:07)
[2016-12-30] MEDS: LR 1,000 ML IV SCH (02:43)
[2016-12-30] MEDS: OCTREOTIDE ACETATE 100 MCG/ML VIAL (J2354) SC SCH ×3 (05:36→21:38)
[2016-12-30] MEDS: SUCRALFATE SUSP 1GM/10ML UD PO SCH ×4 (09:37→21:38)
[2016-12-30] MEDS: SENOKOT S TAB PO SCH ×2 (09:37→21:40)
[2016-12-30] MEDS: ENOXAPARIN 40 MG/0.4 ML SYRINGE (J1650) SC SCH (09:38)
[2016-12-30] MEDS: PANTOPRAZOLE 40MG INJ (PROTONIX) (C9113) IV SCH ×2 (09:38→21:41)
[2016-12-30] MEDS: ERTAPENEM SODIUM 1 GM in NS MINI-BAG PLUS 50 ML IV SCH (09:38)
[2016-12-30] MEDS ORDERED: GASTROGRAFIN SOLUTION 30ML (Q9963) As Ordered ONE (11:03)
--- NOTE | 2016-12-30 12:51 | REP ---
GASTROGRAFIN UPPER GI: The procedure was performed under the direct supervision of Dr. Cottrell. The images were reviewed with Dr. Cottrell. The strapping machine operator film shows multiple surgical drains in place. There is a gastrostomy tube in place. There are surgical radha overlying the mid abdomen. The bowel gas pattern is nonspecific. Approximately 200 mL of a 50/50 solution of Gastrografin and water was instilled through the gastrostomy tube. Contrast is seen filling the stomach. Contrast is seen advancing through the duodenal bulb and proximal duodenum without delay. There is no evidence of extravasation. There is narrowing in the postbulbar duodenum which is likely from postoperative edema. IMPRESSION: 1. There is no evidence of extravasation. 2. There is narrowing the postbulbar duodenum which is likely from postoperative edema. 2 minutes and 24 seconds of fluoroscopic time was utilized for this procedure. Reviewed by CLARENCE Roberts 12/30/2016 01:16 PEdited and Signed by Chandu Cottrell MD 12/30/2016 07:16 P
[2016-12-30] MEDS ORDERED: MORPHINE 4 MG/ML 1ML SYRINGE IV PRN (13:00)
[2016-12-30] MEDS: HYDROcodone/APAP LIQUID 7.5-325MG 15ML UDC (LORTAB ELIXIR) PO PRN ×3 (13:25→21:40)
[2016-12-30] MEDS: traZODone 50 MG TAB PO SCH (21:41)
[2016-12-31] MEDS: zolPIDEM TARTRATE 10MG TAB PO PRN (01:20)
[2016-12-31 02:00] VITALS: BP 138/71
[2016-12-31] MEDS: HYDROcodone/APAP LIQUID 7.5-325MG 15ML UDC (LORTAB ELIXIR) PO PRN ×4 (02:21→15:04)
[2016-12-31 06:00] VITALS: BP 139/71
[2016-12-31] MEDS: OCTREOTIDE ACETATE 100 MCG/ML VIAL (J2354) SC SCH ×3 (06:08→21:26)
--- NOTE | 2016-12-31 09:43 | IPNPDOC ---
Subjective General Date/Time Seen The patient was seen on 12/31/16 at 09:41. Subject Chief Complaint/History The patient is a 31-year-old male admitted with a reason for visit of Ruptured Ulcer. He continues to do well. So far is tolerating clear liquids. He denies any ongoing nausea. He has been having this episodes of cold sweats and perspiration and increasing anxiety episodes. Last night was having difficulty sleeping. He was given Ambien that he reports this did not help him sleep through the night. He was inquiring about his Suboxone. He is also started to regularly moving his bowels now. Current Medications Current Medications Current Medications Acetaminophen (Tylenol Tab) 650 mg Q4HP PRN PO MILD PAIN or TEMP > 101; Start 12/21/16 at 12:45; Stop 01/22/17 at 12:44 Acetaminophen/ Hydrocodone Bitart (Lortab Liquid 7.5-325 Mg/15ml) 10 ml Q4HP PRN PO MODERATE PAIN (PS 5-7) Last administered on 12/31/16 06:23; Start at 13:00; Stop 01/06/17 at 12:59 Acetaminophen/ Hydrocodone Bitart (Naylor, Anexsia 5/325) 1 tab Q4HP PRN PO MODERATE PAIN (PS 5-7); Start 12/21/16 at 12:45; Stop 12/22/16 at 15:27; Status DC Acetaminophen/ Hydrocodone Bitart (Naylor, Anexsia 5/325) 2 tab Q6HP PRN PO SEVERE PAIN (PS 8-10) Last administered on 12/22/16 11:54; Start 12/21/16 at 12 :45; Stop 12/22/16 at 15:27; Status DC Diphenhydramine HCl (Benadryl) 12.5 mg Q4HP PRN IV ITCHING Last administered on 12/26/16 20:25; Start 12/22/16 at 15:30; Stop 12/30/16 at 13:00; Status DC Enoxaparin Sodium (Lovenox) 40 mg DAILY SC Last administered on 12/30/16 09:38 ; Start 12/22/16 at 09:00; Stop 01/01/17 at 08:59 Ertapenem 1 gm/ Sodium Chloride 50 ml @ 100 mls/hr ONCE PRN IV PREOP; Start at 09:30; Stop 12/21/16 at 12:44; Status DC Ertapenem 1 gm/ Sodium Chloride 50 ml @ 100 mls/hr Q24H IV ; Start 12/22/16 at 10:00; Stop 12/22/16 at 10:00; Status DC Ertapenem 1 gm/ Sodium Chloride 50 ml @ 100 mls/hr Q24H IV Last administered on 12/30/16 09:38; Start 12/22/16 at 10:00; Stop 01/05/17 at 09:59 Fentanyl Citrate (Sublimaze) 25 mcg Q5MP PRN IV MODERATE PAIN (PS 4-7); Start 12/21/16 at 13:15; Stop 12/21/16 at 14:15; Status DC Fentanyl Citrate (Sublimaze) 25 mcg Q5MP PRN IV MODERATE PAIN (PS 4-7) Last administered on 12/22/16 20:00; Start 12/22/16 at 20:15; Stop 12/22/16 at 21:15 ; Status DC Fentanyl Citrate (Sublimaze) 25 mcg Q5MP PRN IV MODERATE PAIN (PS 4-7); Start 12/23/16 at 21:50; Stop 12/23/16 at 23:30; Status DC Furosemide (LASIX injection) 20 mg DAILY IV Last administered on 12/28/16 11: 21; Start 12/25/16 at 09:00; Stop 12/28/16 at 13:38; Status DC Home Med (Med Rec Complete!) ASDIRECTED XX ; Start 12/21/16 at 07:45; Stop at 07:45; Status DC Hydromorphone HCl (Dilaudid) 0.3 mg Q5MP PRN IV MODERATE/SEVERE PAIN (PS 7-10) ; Start 12/23/16 at 21:50; Stop 12/23/16 at 23:30; Status DC Hydromorphone HCl (Dilaudid) 0.5 mg Q30M PRN IV MODERATE PAIN (PS 5-7) Last administered on 12/21/16 07:44; Start 12/21/16 at 07:15; Stop 12/21/16 at 07:44 ; Status DC Hydromorphone HCl (Dilaudid) 1 mg Q3HP PRN IV MILD PAIN (PS 1-4) Last administered on 12/24/16 08:09; Start 12/24/16 at 07:15; Stop 12/24/16 at 09:27 ; Status DC Lactated Ringer's 1,000 ml @ 15 mls/hr Q24H IV Last administered on 12/30/16 02:43; Start 12/21/16 at 12:38; Stop 12/30/16 at 18:47; Status DC Lactated Ringer's 1,000 ml @ 100 mls/hr Q10H IV ; Start 12/21/16 at 13:15; Stop 12/21/16 at 14:15; Status DC Lactated Ringer's 1,000 ml @ 100 mls/hr Q10H IV Last administered on 19:30; Start 12/22/16 at 20:15; Stop 12/22/16 at 21:15; Status DC Lactated Ringer's 1,000 ml @ 150 mls/hr Q6H40M IV ; Start 12/21/16 at 09:30; Stop 12/21/16 at 12:45; Status DC Lactated Ringer's 1,000 ml @ 150 mls/hr Q6H40M IV ; Start 12/23/16 at 21:50; Stop 12/23/16 at 23:30; Status DC Meperidine HCl (Demerol) 12.5 mg Q5MP PRN IV SHIVERING Last administered on 13:18; Start 12/21/16 at 13:15; Stop 12/21/16 at 14:15; Status DC Meperidine HCl (Demerol) 12.5 mg Q5MP PRN IV SHIVERING; Start 12/23/16 at 21:50 ; Stop 12/23/16 at 23:30; Status DC Metoclopramide HCl (REGLAN INJection) 10 mg Q6HP PRN IV NAUSEA OR VOMITING; Start 12/21/16 at 13:15; Stop 12/21/16 at 14:15; Status DC Metoclopramide HCl (REGLAN INJection) 10 mg Q6HP PRN IV NAUSEA OR VOMITING; Start 12/23/16 at 21:50; Stop 12/23/16 at 23:30; Status DC Morphine Sulfate (Morphine Sulfate In 0.9%Nacl Iv Bag) Concentration 1 mg/ml ASDIRECTED PRN IV SEE LABEL COMMENTS Last administered on 12/30/16 00:07; Start 12/22/16 at 15:30; Stop 12/30/16 at 13:00; Status DC Morphine Sulfate (Morphine Sulfate Inj) 4 mg Q2HP PRN IV SEVERE PAIN (PS 8-10) Last administered on 12/22/16 13:45; Start 12/21/16 at 12:45; Stop 12/22/16 at 15:27; Status DC Morphine Sulfate (Morphine Sulfate Inj) 4 mg Q4HP PRN IV SEVERE PAIN (PS 8-10) ; Start 12/30/16 at 13:00; Stop 01/06/17 at 12:59 Nalbuphine HCl (Nubain) 2.5 mg Q6HP PRN IV PRURITIS Last administered on 18:02; Start 12/22/16 at 15:30; Stop 12/30/16 at 13:00; Status DC Naloxone HCl (Narcan) 0.1 mg Q5MP PRN IV SEE LABEL COMMENTS; Start 12/22/16 at 15:30; Stop 12/30/16 at 13:00; Status DC Non-Formulary Medication (Epidural/COMMUNICATIONS DIRECTOR [place]) USE THIS ENTRY TO VEND ... Q1M PRN XX SEE LABEL COMMENTS; Start 12/22/16 at 15:30; Stop 12/30/16 at 13:00; Status DC Octreotide Acetate (SandoSTATIN) 100 mcg Q8H SC Last administered on 12/31/16 06:08; Start 12/23/16 at 06:00; Stop 01/22/17 at 05:59 Ondansetron HCl (ZOFRAN INJection) 4 mg Q4HP PRN IV NAUSEA OR VOMITING; Start 12/21/16 at 13:15; Stop 12/21/16 at 14:15; Status DC Ondansetron HCl (ZOFRAN INJection) 4 mg Q4HP PRN IV NAUSEA OR VOMITING; Start 12/22/16 at 20:15; Stop 12/22/16 at 21:15; Status DC Ondansetron HCl (ZOFRAN INJection) 4 mg Q4HP PRN IV NAUSEA OR VOMITING; Start 12/23/16 at 21:50; Stop 12/23/16 at 23:30; Status DC Ondansetron HCl (ZOFRAN INJection) 4 mg Q6HP PRN IV NAUSEA OR VOMITING; Start 12/21/16 at 12:45; Stop 12/22/16 at 15:42; Status DC Ondansetron HCl (ZOFRAN INJection) 4 mg Q6HP PRN IV NAUSEA; Start 12/22/16 at 15:30; Stop 12/30/16 at 13:00; Status DC Pantoprazole Sodium (Protonix) 40 mg Q12H IV Last administered on 12/30/16 21: 41; Start 12/21/16 at 21:00; Stop 01/22/17 at 20:59 Potassium Chloride (Micro-K Extencaps) 20 meq TID PO Last administered on 21:11; Start 12/28/16 at 09:00; Stop 12/28/16 at 23:59; Status DC Senna/Docusate Sodium (Senokot S) 1 tab BID PO Last administered on 12/30/16 21 :40; Start 12/21/16 at 21:00; Stop 01/22/17 at 20:59 Sodium Chloride 1,000 ml @ 15 mls/hr Q24H IV ; Start 12/22/16 at 15:24; Stop at 15:37; Status DC Sodium Chloride 1,000 ml @ 200 mls/hr Q5H IV Last administered on 12/21/16 07 :30; Start 12/21/16 at 07:30; Stop 12/21/16 at 09:19; Status DC Sucralfate (Carafate Suspension) 1 gm QID PO Last administered on 12/30/16 21: 38; Start 12/22/16 at 09:00; Stop 01/22/17 at 08:59 Sucralfate (Carafate) 1 gm QID PO ; Start 12/22/16 at 09:00; Stop 12/22/16 at 10 :23; Status DC Trazodone HCl (Desyrel) 50 mg QHS PO Last administered on 12/30/16 21:41; Start 12/25/16 at 21:00; Stop 01/24/17 at 20:59 Trazodone HCl (Desyrel) 100 mg QHSP PRN PO INSOMNIA Last administered on 22:38; Start 12/21/16 at 22:30; Stop 12/31/16 at 01:11; Status DC Zolpidem Tartrate (Ambien) 10 mg QHSP PRN PO INSOMNIA Last administered on 01:20; Start 12/31/16 at 01:15; Stop 01/07/17 at 01:14 Allergies Coded Allergies: No Known Allergies (Unverified , 12/11/16) Objective Physical Examination Examination GENERAL APPEARANCE:Patient seen, laying in bed, awake, alert, and oriented. Comfortable, in no acute distress. SKIN: Warm and moist. HEENT: Normocephalic, atraumatic. [place] palpebral conjunctiva, anicteric sclerae. Lips and mucosa appear moist. NECK: Supple, no thyromegaly. No obvious jugular venous distention. LUNGS: Clear to auscultation bilaterally. No wheezing appreciated. HEART: No chest wall abnormalities. Regular rate and rhythm with no murmurs appreciated. ABDOMEN: Abdomen is flat, soft, minimally distended. Midline incision is clean and dry. Drain sites are clean and dry. The cholecystostomy drain is functioning. This was clamped and tied off. The KAREN drain remains mainly serous and only small amount of drainage. The gastrostomy tube has been closed since Thursday. The jejunostomy tube's being used for feeding. EXTREMITIES: Extremities have no deformities. No edema identified. Vital Signs Vital Signs Date Time Temp Pulse Resp B/P (MAP) Pulse Ox O2 Delivery O2 Flow Rate FiO2 12/31/16 06:53 16 12/31/16 06:00 97.4 79 139/71 (93) 96 Room Air 12/25/16 12:00 2.0 I&Os I&O- Last 24 Hours up to 6 AM 12/31/16 05:59 Intake Total 1170 ml Output Total 1620 ml Balance -450 ml Imaging Studies UGIS 1. There is no evidence of extravasation. 2. There is narrowing the postbulbar duodenum which is likely from postoperative edema. Impression Duodenal perforation POD 7 Repair of duodenal perforation, Cholecystostomy, Gastrostomy, Jejunostomy tube placement Patient was started on liquids yesterday. so far tolerating it. Will clamp the cholecystostomy tube today. check labs tomorrow. If ok will advance diet tomorrow. Continue ambulation pain control: lortab liquid + morphine IV, COMMUNICATIONS DIRECTOR discontinued I think patient is having some either narcotic withdrawal or withdrawal from his Suboxone. Either way unfortunately we can't resume this Suboxone yet to see still need some sort of pain control for his incisions as well as the drain. I discussed this with the patient and he understands that. I think for now I'll start him on some benzo diazepam for the night to help him with his insight he attacks or what I think is his withdrawal symptoms. Plan / VTE VTE Prophylaxis Ordered?: Yes Plan / Urinary Catheter Reason for insertion/continuin: Perioperative NICK ENGLE MD Dec 31, 2016 09:43
[2016-12-31 10:00] VITALS: BP 145/87
[2016-12-31] MEDS: ENOXAPARIN 40 MG/0.4 ML SYRINGE (J1650) SC SCH (10:26)
[2016-12-31] MEDS: SENOKOT S TAB PO SCH ×2 (10:26→21:26)
[2016-12-31] MEDS: PANTOPRAZOLE 40MG INJ (PROTONIX) (C9113) IV SCH ×2 (10:26→21:26)
[2016-12-31] MEDS: SUCRALFATE SUSP 1GM/10ML UD PO SCH ×4 (10:27→21:26)
[2016-12-31] MEDS: ERTAPENEM SODIUM 1 GM in NS MINI-BAG PLUS 50 ML IV SCH (10:40)
[2016-12-31 13:37] VITALS: BP 132/79
[2016-12-31 18:00] VITALS: BP 120/78
[2016-12-31] MEDS: LORazepam 1 MG TAB PO PRN (21:29)
[2016-12-31] MEDS: traZODone 50 MG TAB PO SCH (21:29)
[2016-12-31 22:00] VITALS: BP 143/82
[2017-01-01] MEDS: OCTREOTIDE ACETATE 100 MCG/ML VIAL (J2354) SC SCH ×3 (05:23→21:27)
[2017-01-01 06:00] VITALS: BP 118/71
[2017-01-01] MEDS: ERTAPENEM SODIUM 1 GM in NS MINI-BAG PLUS 50 ML IV SCH (09:24)
[2017-01-01] MEDS: SENOKOT S TAB PO SCH ×2 (09:24→21:27)
[2017-01-01] MEDS: SUCRALFATE SUSP 1GM/10ML UD PO SCH ×4 (09:24→21:28)
[2017-01-01] MEDS: PANTOPRAZOLE 40MG INJ (PROTONIX) (C9113) IV SCH (09:24)
[2017-01-01 14:00] VITALS: BP 140/80
[2017-01-01] MEDS: PANTOPRAZOLE 40MG TAB (PROTONIX) PO SCH (21:27)
[2017-01-01] MEDS: LORazepam 1 MG TAB PO PRN (21:27)
[2017-01-01] MEDS: traZODone 50 MG TAB PO SCH (21:27)
[2017-01-01 22:00] VITALS: BP 118/75
[2017-01-02] MEDS: OCTREOTIDE ACETATE 100 MCG/ML VIAL (J2354) SC SCH ×3 (05:41→21:48)
[2017-01-02] MEDS: LevoFLOXacin 500 MG TABLET PO SCH (05:41)
[2017-01-02 06:00] VITALS: BP 123/62
[2017-01-02] MEDS ORDERED: metroNIDAZOLE 500 MG in APPROPRIATE DILUENT 1 EA IV SCH (08:00)
[2017-01-02 08:30] LABS: BASO % 0.6 % (0.0-1.0); EOS # 0.3 K/mm3 (0.0-0.50); EOS % 5.6 % (0.0-3.0); LARGE UNSTAINED CELL # 0.1 K/mm3 (0.0-0.4); LYMPH # 2.4 K/mm3 (1.5-4.5); LYMPH % 36.4 % (24.0-44.0); MEAN CORPUSCULAR HEMOGLOBIN 29.9 pg (27.0-33.0); MEAN CORPUSCULAR HGB CONC 34.6 g/dl (32.0-36.5); MEAN CORPUSCULAR VOLUME 86.5 fl (80.0-96.0); MONO # 0.5 K/mm3 (0.0-0.8); MONO % 8.3 % (0.0-5.0); NEUTROPHILS # 2.9 K/mm3 (1.8-7.7); NEUTROPHILS % 47.1 % (36.0-66.0); PLATELET COUNT, AUTOMATED 278 k/mm3 (150-450); RED CELL DISTRIBUTION WIDTH 12.7 % (11.5-14.5); WHITE BLOOD COUNT 6.2 K/mm3 (4.0-10.0)
[2017-01-02 09:00] LABS: ALBUMIN 3.3 GM/DL (3.2-5.2); ALBUMIN/GLOBULIN RATIO 0.89 (1.00-1.93); ALKALINE PHOSPHATASE 124 U/L (45-117); ALT/SGPT 125 U/L (12-78); ANION GAP 9 MEQ/L (8-16); AST/SGOT 55 U/L (15-37); BILIRUBIN,TOTAL 0.5 MG/DL (0.2-1.0); BLOOD UREA NITROGEN 14 MG/DL (7-18); CALCIUM LEVEL 8.6 MG/DL (8.5-10.1); CARBON DIOXIDE LEVEL 28 MEQ/L (21-32); CHLORIDE LEVEL 103 MEQ/L (98-107); CREATININE FOR GFR 0.97 MG/DL (0.70-1.30); GLOMERULAR FILTRATION RATE > 60.0 (>60); GLUCOSE, FASTING 119 MG/DL (70-105); SODIUM LEVEL 140 MEQ/L (136-145)
[2017-01-02] MEDS ORDERED: LevoFLOXacin IV 500 MG in APPROPRIATE DILUENT 1 EA IV SCH (09:00)
[2017-01-02] MEDS: PANTOPRAZOLE 40MG TAB (PROTONIX) PO SCH ×2 (09:06→21:48)
[2017-01-02] MEDS: SENOKOT S TAB PO SCH ×2 (09:06→21:47)
[2017-01-02] MEDS: SUCRALFATE SUSP 1GM/10ML UD PO SCH ×4 (09:06→21:47)
[2017-01-02] MEDS: metroNIDAZOLE (FLAGYL) 500 MG TAB PO SCH ×3 (09:07→21:48)
[2017-01-02] MEDS: BUPRENORPHINE/NALOXONE 8-2MG SUBLINGUAL TABLET(SUBOXONE) SL SCH (13:28)
[2017-01-02 14:00] VITALS: BP 131/66
[2017-01-02] MEDS: traZODone 50 MG TAB PO SCH (21:48)
[2017-01-02 22:00] VITALS: BP 117/71
[2017-01-03] MEDS: LevoFLOXacin 500 MG TABLET PO SCH (05:59)
[2017-01-03] MEDS: OCTREOTIDE ACETATE 100 MCG/ML VIAL (J2354) SC SCH ×3 (05:59→21:58)
[2017-01-03 06:00] VITALS: BP 158/76
[2017-01-03] MEDS: BUPRENORPHINE/NALOXONE 8-2MG SUBLINGUAL TABLET(SUBOXONE) SL SCH (08:21)
[2017-01-03] MEDS: SUCRALFATE SUSP 1GM/10ML UD PO SCH ×4 (08:21→21:57)
[2017-01-03] MEDS: metroNIDAZOLE (FLAGYL) 500 MG TAB PO SCH ×3 (08:21→21:57)
[2017-01-03] MEDS: PANTOPRAZOLE 40MG TAB (PROTONIX) PO SCH ×2 (08:21→21:57)
[2017-01-03] MEDS: SENOKOT S TAB PO SCH ×2 (08:21→21:57)
[2017-01-03 14:00] VITALS: BP 128/69
[2017-01-03] MEDS: zolPIDEM TARTRATE 10MG TAB PO PRN (21:57)
[2017-01-03] MEDS: traZODone 50 MG TAB PO SCH (21:58)
[2017-01-03 22:00] VITALS: BP 128/71
[2017-01-04 06:00] VITALS: BP 117/68
[2017-01-04] MEDS: OCTREOTIDE ACETATE 100 MCG/ML VIAL (J2354) SC SCH ×3 (06:19→21:03)
[2017-01-04] MEDS: LevoFLOXacin 500 MG TABLET PO SCH (06:19)
[2017-01-04] MEDS: SUCRALFATE SUSP 1GM/10ML UD PO SCH ×4 (09:07→21:01)
[2017-01-04] MEDS: BUPRENORPHINE/NALOXONE 8-2MG SUBLINGUAL TABLET(SUBOXONE) SL SCH (09:08)
[2017-01-04] MEDS: PANTOPRAZOLE 40MG TAB (PROTONIX) PO SCH ×2 (09:08→21:02)
[2017-01-04] MEDS: metroNIDAZOLE (FLAGYL) 500 MG TAB PO SCH ×3 (09:08→21:02)
[2017-01-04] MEDS: SENOKOT S TAB PO SCH ×2 (09:08→21:02)
[2017-01-04] MEDS: URSODIOL 300 MG CAP PO SCH ×3 (11:39→21:02)
[2017-01-04 14:00] VITALS: BP 124/68
[2017-01-04] MEDS: traZODone 50 MG TAB PO SCH (21:02)
[2017-01-04] MEDS: zolPIDEM TARTRATE 10MG TAB PO PRN (21:02)
[2017-01-04 22:00] VITALS: BP 125/69
[2017-01-05] MEDS: LevoFLOXacin 500 MG TABLET PO SCH (05:12)
[2017-01-05] MEDS: OCTREOTIDE ACETATE 100 MCG/ML VIAL (J2354) SC SCH ×2 (05:13→13:04)
[2017-01-05 06:00] VITALS: BP 122/63
[2017-01-05] MEDS: PANTOPRAZOLE 40MG TAB (PROTONIX) PO SCH (09:14)
[2017-01-05] MEDS: SUCRALFATE SUSP 1GM/10ML UD PO SCH ×2 (09:14→13:04)
[2017-01-05] MEDS: BUPRENORPHINE/NALOXONE 8-2MG SUBLINGUAL TABLET(SUBOXONE) SL SCH (09:14)
[2017-01-05] MEDS: SENOKOT S TAB PO SCH (09:14)
[2017-01-05] MEDS: URSODIOL 300 MG CAP PO SCH (09:14)
[2017-01-05] MEDS: metroNIDAZOLE (FLAGYL) 500 MG TAB PO SCH (09:15)
[2017-01-05] MEDS ORDERED: PANT40TA2 PO (10:12)
--- NOTE | 2017-01-05 10:17 | DS.PDOC ---
Discharge Summary General Date of Admission Dec 21, 2016 at 08:44 Date of Discharge January 05, 2017 Attending Physician: NICK ENGLE MD Discharge Summary PROCEDURES PERFORMED DURING STAY: 1. Laparoscopic Omental Patch Repair of perforated duodenum 2. Open Repair Leaking Perforation of Duodenum with omental patch 3. Re-do Open Repair of leakage at perforation of duodenum, diversion with cholecystostomy, gastrostomy, feeding jejunostomy tube. ADMITTING DIAGNOSES: 1. Perforated Viscus 2. Generalized Peritonitis DISCHARGE DIAGNOSES: 1. Perforated duodenum most likely secondary to NSAID induced peptic ulcer 2. Peritonitis 3. Continued leakage at duodenal perforation needing reoperation COMPLICATIONS/CHIEF COMPLAINT: Ruptured Ulcer, continued leakage at duodenal perforation HISTORY OF PRESENT ILLNESS: see HPI HOSPITAL COURSE: Patient presented to the ED with severe generalized abdominal pain found to have evidence for perforated viscus and generalized peritonitis on examination. He was promptly brought to the operating room. Diagnostic Laparoscopy shows perforation at the level of the duodenal bulb. A ubaldo patch repair was performed laparoscopically and a drain left in place. The following morning he was noted that he had bilious-appearing drainage from his Derrek- [place] drain and patient remains in a lot of of pain. He was brought back to the operating room. The omental patch repair was done we done in an open fashion. He was subsequently brought back to the floor. Again the following morning the Derrek-Sanabria drain was noted to be draining thick, black greenish bile fluid. At this point I considered other alternative injuries to the happened. I sent him for an upper GI series likewise a HIDA scan which still shows drainage from the duodenal bulb perforation. I spoke to him again and returned him to the operating room. The repair was read on and tested using methylene blue placed in the stomach. We then diverted of the contents coming into the duodenum by placing a cholecystostomy, gastrostomy tube and placing a feeding jejunostomy tube on. He was admitted to the progressive care unit for closer monitoring. The repair seems 12 held up this time especially with the diversion methods that were done. He was fed through the jejunostomy for 1 week. The drains were left open and draining during that time. He was maintained on morphine WAREHOUSE ORDER PICKER for pain control. We continued Invanz for antibiotics. After week we tested our repair between the repeat upper GI series which showed no further leakage through the duodenal repair. The gastrostomy tube was clamped and he was started on clear liquids. After couple of days I also try to clamp the cholecystostomy tube but he had bilious leakage into the drain. The cholecystostomy tube was 10 unclamped and the bile leakage stopped. This makes me think that the bile leakage and now at this point is from the exit site of the cholecystostomy tube from the gallbladder itself. He continued to do well. He was weaned off the morphine WAREHOUSE ORDER PICKER and was just taking oral narcotics. He wanted to go back to his Suboxone as we discontinue the narcotics as he was doing well in terms of his pain. He gradually advance his diet and he was able to tolerate solid foods. On discharge his sepsis has resolved his pain is well-controlled his incisions are healing well and the radha have been removed. He went home with all his drains intact through the jejunostomy tube is not being used the gastrostomy tube is clamped. The cholecystostomy tube is open to a bag and the KAREN drain is in place draining minimal serous fluid. He is going to return to [facility]. He will follow-up with me closely for timing of removal of the drains. He is back on his Suboxone. He is discharged home on another 10 day course of oral antibiotics. DISCHARGE MEDICATIONS: Please see below. ALLERGIES: Please see below. PHYSICAL EXAMINATION ON DISCHARGE: VITAL SIGNS: Please see below. GENERAL: Comfortable HEENT: [place] palpebral conjunctiva, lips and mucosa moist NECK: Supple, no lymphadenopathy no jugular venous distention CARDIOVASCULAR EXAMINATION: Regular heart rate and rhythm RESPIRATORY EXAMINATION: Lungs clear to auscultation bilaterally ABDOMINAL EXAMINATION: Soft, flat abdomen. Midline incision intact, healing well. [place] removed. Over the left side there is a gastrostomy tube, and a separate feeding jejunostomy tube. Both are plugged. Over at the right side,t here is KAREN drain with a small amount of serous fluid. There is cholecystostomy tube draining to a bag. There is some leakage around the cholecystostomy tube. Skin around the area without breakdown or erythema. EXTREMITIES: No edema SKIN: Warm and moist, no rashes NEUROLOGICAL EXAMINATION: Awake alert and oriented PSYCHIATRIC EXAMINATION: Mode and affect appropriate LABORATORY DATA: Please see below. PROGNOSIS: good ACTIVITY: light activity x 2 weeks DIET: soft diet DISCHARGE PLAN: Follow up with me in two weeks. Drains and tubes to be removed as needed. Continue BId protonix for at least six months. He will need an upper endoscopy prior to that to make sure ulcer has healed appropriately. DISPOSITION: Home ([facility]) DISCHARGE INSTRUCTIONS: 1. LTake Protonix 40 mg BID 2. Light activity for 2 weeks 3. Wound care as dicussed: Keep drain sites dry. May shower. replace dressing around cholecystostomy tube as need to protect skin from breakdown DISCHARGE CONDITION: Stable. TIME SPENT ON DISCHARGE: Greater than 45 minutes. Vital Signs/I&Os Vital Signs Date Time Temp Pulse Resp B/P (MAP) Pulse Ox O2 Delivery O2 Flow Rate FiO2 01/05/17 06:00 96.8 70 17 122/63 (82) 96 Room Air I&O- Last 24 Hours up to 6 AM 01/05/17 06:00 Intake Total 800 ml Output Total 1490 ml Balance -690 ml Discharge Medications Scheduled (Sertraline HCl) 50 Mg Tab, 50 MG PO DAILY, (Reported) Buprenorphine/Naloxone (Suboxone 8-2 mg) 1 Mis Mis, 1 MIS SL DAILY, (Reported) Pantoprazole Sodium (Pantoprazole Sodium) 40 Mg Tab, 40 MG PO BID Sofosbuvir/Velpatasvir (Epclusa 400-100 mg) 1 Tab Tab, 1 TAB PO DAILY, (Reported ) Scheduled PRN Tizanidine Hydrochloride (Zanaflex) 4 Mg Tab, 1 TAB PO Q8H PRN for MUSCLE SPASMS , (Reported) Allergies Coded Allergies: No Known Allergies (Unverified , 12/11/16) NICK ENGLE MD Jan 05, 2017 09:36
== END 2017-01-05 13:30 | disposition home health service (06) | DRG 222 ==
LOC: EDBD 04:21 → M ED 04:21 → M ED INP 08:44 → M MSPAV 14:18 → M PCU 12-23 18:07 → M MSPAV 12-29 18:10
PROVIDERS: ADMIT Surgery; ATTEND Surgery
PROC: 0DU947Z Supplement Duodenum with Autologous Tissue Substitute, Percutaneous Endoscopic Approach (ICD-10-PCS; principal; 2016-12-21 09:22)
PROC: 0DU907Z Supplement Duodenum with Autologous Tissue Substitute, Open Approach (ICD-10-PCS; 2016-12-22)
PROC: 0DU907Z Supplement Duodenum with Autologous Tissue Substitute, Open Approach (ICD-10-PCS; 2016-12-23)
PROC: 0D9600Z Drainage of Stomach with Drainage Device, Open Approach (ICD-10-PCS; 2016-12-23)
PROC: 0DHA0UZ Insertion of Feeding Device into Jejunum, Open Approach (ICD-10-PCS; 2016-12-23)
DX: K26.1 Acute duodenal ulcer with perforation (principal); K65.0 Generalized (acute) peritonitis; F32.9 Major depressive disorder, single episode, unspecified; M54.9 Dorsalgia, unspecified; T39.395A Adverse effect of other nonsteroidal anti-inflammatory drugs [NSAID], initial encounter; B19.20 Unspecified viral hepatitis C without hepatic coma; T85.598A Other mechanical complication of other gastrointestinal prosthetic devices, implants and grafts, initial encounter; F11.10 Opioid abuse, uncomplicated; Y83.2 Surgical operation with anastomosis, bypass or graft as the cause of abnormal reaction of the patient, or of later complication, without mention of misadventure at the time of the procedure; F17.210 Nicotine dependence, cigarettes, uncomplicated; Z79.899 Other long term (current) drug therapy

== ENCOUNTER → 2017-05-29 | Outpatient (CLI) | payer OTHER | LOC: M EKG 12:59 | DX: F11.20 Opioid dependence, uncomplicated (principal) | CPT/HCPCS: 93005 ==

== ENCOUNTER 2017-10-08 22:13 | Inpatient (IN) | payer OTHER ==
[2017-10-08] MEDS: LORazepam 2 MG/ML VIAL (J2060) IV (22:31)
[2017-10-08] MEDS: dexameTHASONE 20 MG/5 ML VIAL (J1100) IV (22:32)
[2017-10-08] MEDS ORDERED: PROPOFOL 200 MG/20 ML VIAL As Ordered ×2 (22:34→22:48)
[2017-10-08] MEDS ORDERED: PROPOFOL 1,000 MG/100 ML VIAL As Ordered (22:35)
[2017-10-08 22:37] LABS: BASO % 0.4 % (0.0-1.0); EOS % 0.2 % (0.0-3.0); IMMATURE GRANULOCYTE % 0.2 % (0-3.0); LYMPH # 2.5 10^3/uL (1.5-4.5); LYMPH % 22.9 % (24.0-44.0); MEAN CORPUSCULAR HEMOGLOBIN 29.5 pg (27.0-33.0); MEAN CORPUSCULAR VOLUME 84.4 fl (80.0-96.0); MONO # 1.9 10^3/uL (0.0-0.8); MONO % 17.8 % (0.0-5.0); NEUTROPHILS # 6.3 10^3/uL (1.8-7.7); NEUTROPHILS % 58.5 % (36.0-66.0); PLATELET COUNT, AUTOMATED 252 10^3/uL (150-450); RED BLOOD COUNT 4.74 10^6/uL (4.30-6.10); RED CELL DISTRIBUTION WIDTH 13.5 % (11.5-14.5); WHITE BLOOD COUNT 10.8 10^3/uL (4.0-10.0)
[2017-10-08] MEDS: ETOMIDATE INJ 20MG/10ML VIAL IV (22:48)
[2017-10-08] MEDS: SUCCINYLCHOLINE INJ 200 MG/10 ML VIAL (J0330) IV (22:48)
[2017-10-08] MEDS: PROPOFOL 200 MG/20 ML VIAL IV ×2 (22:52→22:55)
[2017-10-08] MEDS: PROPOFOL 1,000 MG in APPROPRIATE DILUENT 1 EA IV (22:52)
[2017-10-08 23:17] LABS: ANION GAP 13 MEQ/L (8-16); BLOOD UREA NITROGEN 36 MG/DL (7-18); CALCIUM LEVEL 9.5 MG/DL (8.5-10.1); CARBON DIOXIDE LEVEL 23 MEQ/L (21-32); CHLORIDE LEVEL 105 MEQ/L (98-107); CPK CREATINE PHOSPHOKINASE 1364 U/L (39-308); CREATININE FOR GFR 1.56 MG/DL (0.70-1.30); ETHYL ALCOHOL (ETHANOL) < 0.003 % (0.000-0.010); GLOMERULAR FILTRATION RATE 55.5 (>60); GLUCOSE, FASTING 97 MG/DL (70-100); POTASSIUM SERUM 3.3 MEQ/L (3.5-5.1); SALICYLATE LEVEL 2.1 MG/DL (5.0-30.0); SODIUM LEVEL 141 MEQ/L (136-145)
[2017-10-08 23:24] LABS: ACETAMINOPHEN LEVEL < 2.0 UG/ML (10.0-30.0)
[2017-10-08] MEDS: NS 1,000 ML IV (23:45)
[2017-10-09] LABS: ABG HCO3 19.1 MEQ/L (22.0-26.0); ABG O2 SATURATION 98.3 % (95.0-99.0); ABG PARTIAL PRESSURE CO2 36.5 mmHg (35.0-45.0); ABG PARTIAL PRESSURE O2 123.4 mmHg (75.0-100.0); ABG STANDARD HCO3 19.6 MEQ/L (22.0-26.0); ABG TOTAL CO2 20.2 MEQ/L (22.0-29.0); ABG pH (ARTERIAL) 7.336 UNITS (7.350-7.450)
[2017-10-09] MEDS ORDERED: PROPOFOL 1,000 MG in APPROPRIATE DILUENT 1 EA IV ×3 (00:15→01:00)
[2017-10-09] MEDS ORDERED: NS 1,000 ML IV (00:45)
[2017-10-09] MEDS: PROPOFOL 1,000 MG in APPROPRIATE DILUENT 1 EA IV ×13 (00:59→21:56)
[2017-10-09] MEDS: KCL 40MEQ in NS 1000ML 1,000 ML IV ×3 (02:20→21:55)
[2017-10-09] MEDS: RACEPINEPHrine 2.25 % UD INHA NEB (03:23)
[2017-10-09 03:45] LABS: ABG HCO3 21.9 MEQ/L (22.0-26.0); ABG PARTIAL PRESSURE CO2 38.8 mmHg (35.0-45.0); ABG PARTIAL PRESSURE O2 173.6 mmHg (75.0-100.0); ABG TOTAL CO2 23.1 MEQ/L (22.0-29.0)
[2017-10-09] MEDS: LORazepam 2 MG/ML VIAL (J2060) IV ×5 (03:50→11:17)
[2017-10-09] MEDS ORDERED: SUCCINYLCHOLINE 100 MG/5 ML SYRINGE (J0330) (05:47)
[2017-10-09] MEDS ORDERED: ETOMIDATE INJ 20MG/10ML VIAL (05:47)
[2017-10-09] MEDS ORDERED: PROPOFOL 200 MG/20 ML VIAL (05:47)
[2017-10-09 06:06] LABS: CPK CREATINE PHOSPHOKINASE 898 U/L (39-308)
[2017-10-09] MEDS: IPRATROPIUM 0.5MG/ALBUTEROL 2.5MG INH SOL UD 3ML (DUONEB)(J7620) NEB ×4 (07:04→20:12)
[2017-10-09 08:51] LABS: HEMATOCRIT 36.1 % (42.0-52.0); HEMOGLOBIN 12.5 g/dl (13.5-17.5); MEAN CORPUSCULAR HEMOGLOBIN 29.3 pg (27.0-33.0); MEAN CORPUSCULAR HGB CONC 34.6 g/dl (32.0-36.5); MEAN CORPUSCULAR VOLUME 84.7 fl (80.0-96.0); PLATELET COUNT, AUTOMATED 179 10^3/uL (150-450); RED BLOOD COUNT 4.26 10^6/uL (4.30-6.10); RED CELL DISTRIBUTION WIDTH 13.9 % (11.5-14.5); WHITE BLOOD COUNT 5.8 10^3/uL (4.0-10.0)
[2017-10-09] MEDS: MORPHINE 4 MG/ML 1ML VIAL/SYRINGE (J2270) IV ×4 (08:54→16:35)
[2017-10-09] MEDS: PANTOPRAZOLE 40MG INJ (PROTONIX) (C9113) IV (09:19)
[2017-10-09] MEDS: ENOXAPARIN 40 MG/0.4 ML SYRINGE (J1650) SC (09:20)
[2017-10-09] MEDS: CHLORHEXIDINE ORAL RINSE 0.12%/15ML 120ML BOTTLE MT ×2 (09:20→21:55)
[2017-10-09 09:26] LABS: ALBUMIN 3.8 GM/DL (3.2-5.2); ANION GAP 7 MEQ/L (8-16); BLOOD UREA NITROGEN 25 MG/DL (7-18); CALCIUM LEVEL 8.4 MG/DL (8.5-10.1); CARBON DIOXIDE LEVEL 26 MEQ/L (21-32); CHLORIDE LEVEL 110 MEQ/L (98-107); CREATININE FOR GFR 0.98 MG/DL (0.70-1.30); GLOMERULAR FILTRATION RATE > 60.0 (>60); GLUCOSE, FASTING 124 MG/DL (70-100); PHOSPHORUS LEVEL 4.2 MG/DL (2.5-4.9); POTASSIUM SERUM 4.1 MEQ/L (3.5-5.1); SODIUM LEVEL 143 MEQ/L (136-145)
[2017-10-09 12:30] LABS: CPK CREATINE PHOSPHOKINASE 595 U/L (39-308)
[2017-10-09] MEDS ORDERED: MIDAZOLAM INJ 2 MG/2 ML VIAL (J2250) As Ordered ×4 (14:19→14:20)
[2017-10-09] MEDS: MIDAZOLAM INJ 2 MG/2 ML VIAL (J2250) IV ×2 (14:25→14:28)
[2017-10-09] MEDS ORDERED: MIDAZOLAM INJ 2 MG/2 ML VIAL (J2250) IV (15:15)
[2017-10-09 18:12] LABS: CPK CREATINE PHOSPHOKINASE 404 U/L (39-308)
[2017-10-10] MEDS: PROPOFOL 1,000 MG in APPROPRIATE DILUENT 1 EA IV ×3 (01:10→08:06)
[2017-10-10] MEDS: MORPHINE 4 MG/ML 1ML VIAL/SYRINGE (J2270) IV ×2 (02:38→08:40)
[2017-10-10 05:28] LABS: HEMATOCRIT 34.8 % (42.0-52.0); HEMOGLOBIN 11.8 g/dl (13.5-17.5); MEAN CORPUSCULAR HEMOGLOBIN 29.5 pg (27.0-33.0); MEAN CORPUSCULAR HGB CONC 33.9 g/dl (32.0-36.5); PLATELET COUNT, AUTOMATED 176 10^3/uL (150-450); RED CELL DISTRIBUTION WIDTH 14.4 % (11.5-14.5); WHITE BLOOD COUNT 7.3 10^3/uL (4.0-10.0)
[2017-10-10 05:40] LABS: ALBUMIN 3.3 GM/DL (3.2-5.2); ANION GAP 4 MEQ/L (8-16); BLOOD UREA NITROGEN 19 MG/DL (7-18); CALCIUM LEVEL 7.8 MG/DL (8.5-10.1); CARBON DIOXIDE LEVEL 30 MEQ/L (21-32); CHLORIDE LEVEL 112 MEQ/L (98-107); CREATININE FOR GFR 0.96 MG/DL (0.70-1.30); GLOMERULAR FILTRATION RATE > 60.0 (>60); GLUCOSE, FASTING 88 MG/DL (70-100); PHOSPHORUS LEVEL 2.8 MG/DL (2.5-4.9); SODIUM LEVEL 146 MEQ/L (136-145)
[2017-10-10 05:49] LABS: ABG BASE EXCESS 2.7 (-2.0-2.0); ABG HCO3 26.5 MEQ/L (22.0-26.0); ABG O2 SATURATION 97.4 % (95.0-99.0); ABG PARTIAL PRESSURE CO2 38.1 mmHg (35.0-45.0); ABG PARTIAL PRESSURE O2 92.1 mmHg (75.0-100.0); ABG STANDARD HCO3 26.8 MEQ/L (22.0-26.0); ABG TOTAL CO2 27.7 MEQ/L (22.0-29.0)
[2017-10-10] MEDS: KCL 40MEQ in NS 1000ML 1,000 ML IV (06:08)
[2017-10-10] MEDS: PANTOPRAZOLE 40MG INJ (PROTONIX) (C9113) IV (08:38)
[2017-10-10] MEDS: ENOXAPARIN 40 MG/0.4 ML SYRINGE (J1650) SC (08:39)
[2017-10-10] MEDS: IPRATROPIUM 0.5MG/ALBUTEROL 2.5MG INH SOL UD 3ML (DUONEB)(J7620) NEB ×4 (08:51→20:21)
[2017-10-10] MEDS: PARoxetine 25 MG CR TAB (PAXIL CR) PO (10:33)
[2017-10-10] MEDS: BUPRENORPHINE/NALOXONE 2-0.5MG SUBLINGUAL TABLET(SUBOXONE) SL ×2 (10:33→11:24)
[2017-10-10] MEDS ORDERED: BUPRENORPHINE/NALOXONE 2-0.5MG SUBLINGUAL TABLET(SUBOXONE) PO (11:00)
[2017-10-10] MEDS ORDERED: BUPRENORPHINE/NALOXONE 8-2MG SUBLINGUAL TABLET(SUBOXONE) PO (11:00)
[2017-10-10] MEDS: BUPRENORPHINE/NALOXONE 8-2MG SUBLINGUAL TABLET(SUBOXONE) SL ×2 (11:24→21:04)
[2017-10-10] MEDS ORDERED: SLF 3 ML SYR IV (15:30)
[2017-10-10] MEDS ORDERED: SODIUM CHLORIDE 0.9% INJ 10 ML SYR IV (15:30)
[2017-10-10] MEDS: SODIUM CHLORIDE 0.9% INJ 10 ML SYR IV (21:04)
[2017-10-10] MEDS: SLF 3 ML SYR IV (21:05)
[2017-10-11 04:44] LABS: HEMATOCRIT 35.8 % (42.0-52.0); HEMOGLOBIN 12.1 g/dl (13.5-17.5); MEAN CORPUSCULAR HEMOGLOBIN 29.7 pg (27.0-33.0); MEAN CORPUSCULAR HGB CONC 33.8 g/dl (32.0-36.5); PLATELET COUNT, AUTOMATED 162 10^3/uL (150-450); RED BLOOD COUNT 4.07 10^6/uL (4.30-6.10); WHITE BLOOD COUNT 5.9 10^3/uL (4.0-10.0)
[2017-10-11 05:05] LABS: ALBUMIN 3.3 GM/DL (3.2-5.2); ANION GAP 5 MEQ/L (8-16); BLOOD UREA NITROGEN 13 MG/DL (7-18); CALCIUM LEVEL 8.3 MG/DL (8.5-10.1); CARBON DIOXIDE LEVEL 30 MEQ/L (21-32); CHLORIDE LEVEL 112 MEQ/L (98-107); CREATININE FOR GFR 0.81 MG/DL (0.70-1.30); GLOMERULAR FILTRATION RATE > 60.0 (>60); GLUCOSE, FASTING 87 MG/DL (70-100); PHOSPHORUS LEVEL 3.6 MG/DL (2.5-4.9); POTASSIUM SERUM 4.1 MEQ/L (3.5-5.1); SODIUM LEVEL 147 MEQ/L (136-145)
[2017-10-11] MEDS: SODIUM CHLORIDE 0.9% INJ 10 ML SYR IV ×3 (05:10→21:07)
[2017-10-11] MEDS: SLF 3 ML SYR IV ×3 (05:11→21:07)
[2017-10-11] MEDS: IPRATROPIUM 0.5MG/ALBUTEROL 2.5MG INH SOL UD 3ML (DUONEB)(J7620) NEB ×3 (08:29→19:13)
[2017-10-11] MEDS: PARoxetine 25 MG CR TAB (PAXIL CR) PO (09:23)
[2017-10-11] MEDS: BUPRENORPHINE/NALOXONE 8-2MG SUBLINGUAL TABLET(SUBOXONE) SL ×2 (09:24→21:07)
[2017-10-11] MEDS: PANTOPRAZOLE 40MG INJ (PROTONIX) (C9113) IV (09:25)
== END 2017-10-11 22:20 | DRG 816 ==
LOC: M ED INP 10-09 00:56 → M MS5PR 10-11 10:34 → M ICU 10-09 01:52 → M ED 22:13
PROC: 0DJ08ZZ Inspection of Upper Intestinal Tract, Via Natural or Artificial Opening Endoscopic (ICD-10-PCS; principal; 2017-10-09)
PROC: 5A1945Z Respiratory Ventilation, 24-96 Consecutive Hours (ICD-10-PCS; 2017-10-09)
PROC: 0BH17EZ Insertion of Endotracheal Airway into Trachea, Via Natural or Artificial Opening (ICD-10-PCS; 2017-10-09)
DX: T54.2X2A Toxic effect of corrosive acids and acid-like substances, intentional self-harm, initial encounter (principal); J96.90 Respiratory failure, unspecified, unspecified whether with hypoxia or hypercapnia; G92 Toxic encephalopathy; E87.0 Hyperosmolality and hypernatremia; F11.20 Opioid dependence, uncomplicated; F32.89 Other specified depressive episodes; K21.9 Gastro-esophageal reflux disease without esophagitis; K29.80 Duodenitis without bleeding; K20.9 Esophagitis, unspecified; Z79.899 Other long term (current) drug therapy

== ENCOUNTER 2017-10-11 22:24 | Inpatient (IN) | payer MEDICAID, OTHER ==
[2017-10-12] MEDS ORDERED: MAALOX 30 ML SUSP *UDC PO
[2017-10-12] MEDS ORDERED: ACETAMINOPHEN TAB 650MG DOSE (2X325MG) PO
[2017-10-12] MEDS ORDERED: MOM 30ML SUSPENSION UDC PO
[2017-10-12] MEDS ORDERED: CHLORHEXIDINE ORAL RINSE 0.12%/15ML 120ML BOTTLE MT (09:00)
[2017-10-12] MEDS: MIRTAZAPINE 15 MG TAB PO ×2 (09:00→20:06)
[2017-10-12] MEDS: risperiDONE 0.25 MG TAB PO (09:06)
[2017-10-12] MEDS: PARoxetine 25 MG CR TAB (PAXIL CR) PO (09:06)
[2017-10-12] MEDS: PANTOPRAZOLE 40MG TAB (PROTONIX) PO (09:06)
[2017-10-12] MEDS: BUPRENORPHINE/NALOXONE 8-2MG SUBLINGUAL TABLET(SUBOXONE) SL ×2 (09:33→20:06)
[2017-10-12] MEDS: AQUAPHOR **100GM** OINT TOP ×2 (10:28→20:06)
[2017-10-12 10:33] LABS: HEMATOCRIT 38.9 % (42.0-52.0); HEMOGLOBIN 12.9 g/dl (13.5-17.5); MEAN CORPUSCULAR HGB CONC 33.2 g/dl (32.0-36.5); MEAN CORPUSCULAR VOLUME 87.4 fl (80.0-96.0); PLATELET COUNT, AUTOMATED 182 10^3/uL (150-450); RED BLOOD COUNT 4.45 10^6/uL (4.30-6.10); RED CELL DISTRIBUTION WIDTH 13.3 % (11.5-14.5); WHITE BLOOD COUNT 5.8 10^3/uL (4.0-10.0)
[2017-10-12 11:05] LABS: ALBUMIN 3.3 GM/DL (3.2-5.2); ALBUMIN/GLOBULIN RATIO 0.89 (1.00-1.93); ALKALINE PHOSPHATASE 80 U/L (45-117); ALT/SGPT 34 U/L (12-78); ANION GAP 5 MEQ/L (8-16); AST/SGOT 18 U/L (7-37); BILIRUBIN,TOTAL 0.5 MG/DL (0.2-1.0); BLOOD UREA NITROGEN 16 MG/DL (7-18); CALCIUM LEVEL 8.4 MG/DL (8.5-10.1); CARBON DIOXIDE LEVEL 28 MEQ/L (21-32); CHLORIDE LEVEL 109 MEQ/L (98-107); CREATININE FOR GFR 0.73 MG/DL (0.70-1.30); GLOMERULAR FILTRATION RATE > 60.0 (>60); GLUCOSE, FASTING 103 MG/DL (70-100); POTASSIUM SERUM 4.1 MEQ/L (3.5-5.1); SODIUM LEVEL 142 MEQ/L (136-145)
[2017-10-13 06:53] LABS: HEMATOCRIT 38.4 % (42.0-52.0); HEMOGLOBIN 13.2 g/dl (13.5-17.5); MEAN CORPUSCULAR HEMOGLOBIN 29.4 pg (27.0-33.0); MEAN CORPUSCULAR HGB CONC 34.4 g/dl (32.0-36.5); MEAN CORPUSCULAR VOLUME 85.5 fl (80.0-96.0); PLATELET COUNT, AUTOMATED 199 10^3/uL (150-450); RED BLOOD COUNT 4.49 10^6/uL (4.30-6.10); RED CELL DISTRIBUTION WIDTH 13.3 % (11.5-14.5); WHITE BLOOD COUNT 6.1 10^3/uL (4.0-10.0)
[2017-10-13 07:22] LABS: ALBUMIN 3.3 GM/DL (3.2-5.2); ALBUMIN/GLOBULIN RATIO 0.89 (1.00-1.93); ALKALINE PHOSPHATASE 79 U/L (45-117); ALT/SGPT 35 U/L (12-78); ANION GAP 7 MEQ/L (8-16); AST/SGOT 20 U/L (7-37); BILIRUBIN,TOTAL 0.5 MG/DL (0.2-1.0); BLOOD UREA NITROGEN 14 MG/DL (7-18); CALCIUM LEVEL 8.6 MG/DL (8.5-10.1); CARBON DIOXIDE LEVEL 28 MEQ/L (21-32); CHLORIDE LEVEL 108 MEQ/L (98-107); CREATININE FOR GFR 0.96 MG/DL (0.70-1.30); GLOMERULAR FILTRATION RATE > 60.0 (>60); GLUCOSE, FASTING 90 MG/DL (70-100); POTASSIUM SERUM 3.8 MEQ/L (3.5-5.1); SODIUM LEVEL 143 MEQ/L (136-145)
[2017-10-13] MEDS: PANTOPRAZOLE 40MG TAB (PROTONIX) PO (09:24)
[2017-10-13] MEDS: AQUAPHOR **100GM** OINT TOP ×2 (09:25→20:01)
[2017-10-13] MEDS: BUPRENORPHINE/NALOXONE 8-2MG SUBLINGUAL TABLET(SUBOXONE) SL ×2 (09:59→20:01)
[2017-10-13] MEDS: MIRTAZAPINE 15 MG TAB PO (20:01)
[2017-10-14] MEDS: PANTOPRAZOLE 40MG TAB (PROTONIX) PO (08:41)
[2017-10-14] MEDS: AQUAPHOR **100GM** OINT TOP ×2 (08:41→20:06)
[2017-10-14] MEDS: BUPRENORPHINE/NALOXONE 8-2MG SUBLINGUAL TABLET(SUBOXONE) SL ×2 (09:48→20:05)
[2017-10-14] MEDS: MIRTAZAPINE 15 MG TAB PO (20:05)
[2017-10-15] MEDS: BUPRENORPHINE/NALOXONE 8-2MG SUBLINGUAL TABLET(SUBOXONE) SL ×2 (08:34→20:04)
[2017-10-15] MEDS: PANTOPRAZOLE 40MG TAB (PROTONIX) PO (08:34)
[2017-10-15] MEDS: AQUAPHOR **100GM** OINT TOP ×2 (08:35→20:08)
[2017-10-15 09:57] LABS: AMPHETAMINES LEVEL URINE NEGATIVE (NEGATIVE); BARBITURATES URINE NEGATIVE (NEGATIVE); BENZODIAZEPINES URINE NEGATIVE (NEGATIVE); CANNABINOIDS URINE NEGATIVE (NEGATIVE); COCAINE METABOLITE URINE NEGATIVE (NEGATIVE); METHADONE URINE NEGATIVE (NEGATIVE); OPIATES URINE NEGATIVE (NEGATIVE); PHENCYCLIDINE URINE NEGATIVE (NEGATIVE)
[2017-10-15] MEDS: MIRTAZAPINE 15 MG TAB PO (20:03)
[2017-10-16] MEDS: PILL CRUSHER/CUTTER 1 EACH XX (08:34)
[2017-10-16] MEDS: PANTOPRAZOLE 40MG TAB (PROTONIX) PO (08:34)
[2017-10-16] MEDS: AQUAPHOR **100GM** OINT TOP ×2 (08:34→20:13)
[2017-10-16] MEDS: ARIPiprazole 15 MG TAB (AbiLIFY) PO (08:34)
[2017-10-16] MEDS: BUPRENORPHINE/NALOXONE 8-2MG SUBLINGUAL TABLET(SUBOXONE) SL ×2 (09:27→20:13)
[2017-10-16] MEDS: NICOTINE 21MG/24HR 1 EA TRANSDERMAL TD (11:03)
[2017-10-16] MEDS: MIRTAZAPINE 15 MG TAB PO (20:14)
[2017-10-16] MEDS: hydrOXYzine 50 MG TAB PO (20:18)
[2017-10-17] MEDS: PANTOPRAZOLE 40MG TAB (PROTONIX) PO (08:53)
[2017-10-17] MEDS: NICOTINE 21MG/24HR 1 EA TRANSDERMAL TD (08:53)
[2017-10-17] MEDS: AQUAPHOR **100GM** OINT TOP ×2 (08:53→20:00)
[2017-10-17] MEDS: ARIPiprazole 15 MG TAB (AbiLIFY) PO (08:54)
[2017-10-17] MEDS: PILL CRUSHER/CUTTER 1 EACH XX (08:54)
[2017-10-17] MEDS: hydrOXYzine 50 MG TAB PO ×2 (09:58→16:00)
[2017-10-17] MEDS: BUPRENORPHINE/NALOXONE 8-2MG SUBLINGUAL TABLET(SUBOXONE) SL ×2 (09:58→19:59)
[2017-10-17] MEDS: MIRTAZAPINE 15 MG TAB PO (19:59)
[2017-10-18] MEDS: ARIPiprazole 15 MG TAB (AbiLIFY) PO (08:11)
[2017-10-18] MEDS: NICOTINE 21MG/24HR 1 EA TRANSDERMAL TD (08:11)
[2017-10-18] MEDS: BUPRENORPHINE/NALOXONE 8-2MG SUBLINGUAL TABLET(SUBOXONE) SL ×2 (08:11→20:05)
[2017-10-18] MEDS: hydrOXYzine 50 MG TAB PO ×3 (08:11→21:19)
[2017-10-18] MEDS: AQUAPHOR **100GM** OINT TOP ×2 (08:11→20:05)
[2017-10-18] MEDS: PANTOPRAZOLE 40MG TAB (PROTONIX) PO (08:11)
[2017-10-18] MEDS: traZODone 50 MG TAB PO (21:19)
[2017-10-19] MEDS: BUPRENORPHINE/NALOXONE 8-2MG SUBLINGUAL TABLET(SUBOXONE) SL ×2 (08:06→15:42)
[2017-10-19] MEDS: PANTOPRAZOLE 40MG TAB (PROTONIX) PO (08:06)
[2017-10-19] MEDS: ARIPiprazole 15 MG TAB (AbiLIFY) PO (08:06)
[2017-10-19] MEDS: hydrOXYzine 50 MG TAB PO ×2 (08:06→15:42)
[2017-10-19] MEDS: NICOTINE 21MG/24HR 1 EA TRANSDERMAL TD (08:06)
[2017-10-19] MEDS: PILL CRUSHER/CUTTER 1 EACH XX (08:07)
[2017-10-19] MEDS: AQUAPHOR **100GM** OINT TOP ×2 (08:09→20:04)
[2017-10-19] MEDS: MIRTAZAPINE 15 MG TAB PO (20:03)
[2017-10-19] MEDS: DOXEPIN 25 MG CAP PO (20:03)
[2017-10-20] MEDS: BUPRENORPHINE/NALOXONE 8-2MG SUBLINGUAL TABLET(SUBOXONE) SL ×2 (06:17→15:41)
[2017-10-20] MEDS: PANTOPRAZOLE 40MG TAB (PROTONIX) PO (08:59)
[2017-10-20] MEDS: NICOTINE 21MG/24HR 1 EA TRANSDERMAL TD (08:59)
[2017-10-20] MEDS: hydrOXYzine 50 MG TAB PO ×2 (08:59→15:41)
[2017-10-20] MEDS: ARIPiprazole 15 MG TAB (AbiLIFY) PO (09:00)
[2017-10-20] MEDS: AQUAPHOR **100GM** OINT TOP ×2 (09:00→20:02)
[2017-10-20] MEDS: TUBERCULIN PPD 5 UNITS/0.1 ML ID (11:26)
[2017-10-20] MEDS: MIRTAZAPINE 15 MG TAB PO (20:04)
[2017-10-20] MEDS: DOXEPIN 25 MG CAP PO (20:04)
[2017-10-21] MEDS: BUPRENORPHINE/NALOXONE 8-2MG SUBLINGUAL TABLET(SUBOXONE) SL ×2 (06:27→15:51)
[2017-10-21] MEDS: hydrOXYzine 50 MG TAB PO ×2 (06:37→13:08)
[2017-10-21] MEDS: ARIPiprazole 15 MG TAB (AbiLIFY) PO (08:31)
[2017-10-21] MEDS: PANTOPRAZOLE 40MG TAB (PROTONIX) PO (08:32)
[2017-10-21] MEDS: NICOTINE 21MG/24HR 1 EA TRANSDERMAL TD (08:32)
[2017-10-21] MEDS: AQUAPHOR **100GM** OINT TOP ×2 (08:57→20:11)
[2017-10-21] MEDS: DOXEPIN 25 MG CAP PO (20:11)
[2017-10-21] MEDS: MIRTAZAPINE 15 MG TAB PO (20:11)
[2017-10-22] MEDS: BUPRENORPHINE/NALOXONE 8-2MG SUBLINGUAL TABLET(SUBOXONE) SL ×2 (06:09→16:06)
[2017-10-22] MEDS: PANTOPRAZOLE 40MG TAB (PROTONIX) PO (08:03)
[2017-10-22] MEDS: ARIPiprazole 15 MG TAB (AbiLIFY) PO (08:03)
[2017-10-22] MEDS: hydrOXYzine 50 MG TAB PO ×2 (08:04→15:40)
[2017-10-22] MEDS: NICOTINE 21MG/24HR 1 EA TRANSDERMAL TD (08:04)
[2017-10-22] MEDS: AQUAPHOR **100GM** OINT TOP ×2 (08:04→21:00)
[2017-10-22] MEDS: PPD DOCUMENTATION ENTRY MISC XX (11:15)
[2017-10-22] MEDS: DOXEPIN 25 MG CAP PO (20:10)
[2017-10-22] MEDS: MIRTAZAPINE 15 MG TAB PO (20:10)
[2017-10-23] MEDS: BUPRENORPHINE/NALOXONE 8-2MG SUBLINGUAL TABLET(SUBOXONE) SL ×2 (06:09→21:14)
[2017-10-23] MEDS: PANTOPRAZOLE 40MG TAB (PROTONIX) PO (08:04)
[2017-10-23] MEDS: ARIPiprazole 10 MG TAB PO (08:04)
[2017-10-23] MEDS: AQUAPHOR **100GM** OINT TOP ×2 (08:04→21:39)
[2017-10-23] MEDS: hydrOXYzine 50 MG TAB PO ×2 (08:04→16:51)
[2017-10-23] MEDS: NICOTINE 21MG/24HR 1 EA TRANSDERMAL TD (08:04)
[2017-10-23] MEDS: MIRTAZAPINE 15 MG TAB PO (21:37)
[2017-10-23] MEDS: DOXEPIN 25 MG CAP PO (21:38)
[2017-10-23] MEDS: cloNIDine 0.1 MG TAB PO (21:38)
[2017-10-24] MEDS: ARIPiprazole 10 MG TAB PO (08:05)
[2017-10-24] MEDS: BUPRENORPHINE/NALOXONE 8-2MG SUBLINGUAL TABLET(SUBOXONE) SL ×2 (08:05→17:01)
[2017-10-24] MEDS: PANTOPRAZOLE 40MG TAB (PROTONIX) PO (08:05)
[2017-10-24] MEDS: NICOTINE 21MG/24HR 1 EA TRANSDERMAL TD (08:05)
[2017-10-24] MEDS: cloNIDine 0.1 MG TAB PO ×3 (08:06→20:49)
[2017-10-24] MEDS: hydrOXYzine 50 MG TAB PO ×2 (08:06→14:49)
[2017-10-24] MEDS: AQUAPHOR **100GM** OINT TOP ×2 (08:08→20:50)
[2017-10-24] MEDS: MIRTAZAPINE 15 MG TAB PO (20:48)
[2017-10-24] MEDS: DOXEPIN 25 MG CAP PO (20:48)
[2017-10-25] MEDS: BUPRENORPHINE/NALOXONE 2-0.5MG SUBLINGUAL TABLET(SUBOXONE) SL ×2 (08:13→18:09)
[2017-10-25] MEDS: ARIPiprazole 10 MG TAB PO (08:13)
[2017-10-25] MEDS: NICOTINE 21MG/24HR 1 EA TRANSDERMAL TD (08:13)
[2017-10-25] MEDS: PANTOPRAZOLE 40MG TAB (PROTONIX) PO (08:13)
[2017-10-25] MEDS: AQUAPHOR **100GM** OINT TOP ×2 (08:14→20:22)
[2017-10-25] MEDS ORDERED: BUPRENORPHINE/NALOXONE 2-0.5MG SUBLINGUAL TABLET(SUBOXONE) SL (09:00)
[2017-10-25] MEDS: hydrOXYzine 50 MG TAB PO (15:53)
[2017-10-25] MEDS: cloNIDine 0.1 MG TAB PO (15:53)
[2017-10-25] MEDS: MIRTAZAPINE 15 MG TAB PO (20:32)
[2017-10-25] MEDS: DOXEPIN 25 MG CAP PO (20:32)
[2017-10-26] MEDS: AQUAPHOR **100GM** OINT TOP ×2 (08:00→20:10)
[2017-10-26] MEDS: ARIPiprazole 10 MG TAB PO (08:02)
[2017-10-26] MEDS: NICOTINE 21MG/24HR 1 EA TRANSDERMAL TD (08:02)
[2017-10-26] MEDS: PANTOPRAZOLE 40MG TAB (PROTONIX) PO (08:02)
[2017-10-26] MEDS: BUPRENORPHINE/NALOXONE 2-0.5MG SUBLINGUAL TABLET(SUBOXONE) SL (09:01)
[2017-10-26] MEDS: DOXEPIN 25 MG CAP PO (20:21)
[2017-10-26] MEDS: MIRTAZAPINE 15 MG TAB PO (20:21)
[2017-10-26] MEDS: cloNIDine 0.1 MG TAB PO (20:22)
[2017-10-27] MEDS: NICOTINE 21MG/24HR 1 EA TRANSDERMAL TD (08:04)
[2017-10-27] MEDS: AQUAPHOR **100GM** OINT TOP ×2 (08:04→21:00)
[2017-10-27] MEDS: ARIPiprazole 10 MG TAB PO (08:04)
[2017-10-27] MEDS: PANTOPRAZOLE 40MG TAB (PROTONIX) PO (08:04)
[2017-10-27] MEDS: cloNIDine 0.1 MG TAB PO ×2 (08:06→21:22)
[2017-10-27] MEDS: hydrOXYzine 50 MG TAB PO (18:14)
[2017-10-27] MEDS: DOXEPIN 25 MG CAP PO (21:21)
[2017-10-27] MEDS: MIRTAZAPINE 15 MG TAB PO (21:22)
[2017-10-28] MEDS: AQUAPHOR **100GM** OINT TOP (08:03)
[2017-10-28] MEDS: ARIPiprazole 10 MG TAB PO (08:07)
[2017-10-28] MEDS: NICOTINE 21MG/24HR 1 EA TRANSDERMAL TD (08:07)
[2017-10-28] MEDS: PANTOPRAZOLE 40MG TAB (PROTONIX) PO (08:07)
[2017-10-28] MEDS: hydrOXYzine 50 MG TAB PO (08:08)
[2017-10-28] MEDS: cloNIDine 0.1 MG TAB PO (08:08)
[2017-10-28] MEDS: IBUPROFEN 400 MG TAB PO (08:09)
== END 2017-10-28 10:00 | DRG 885 ==
LOC: M PSY 22:24
DX: F33.2 Major depressive disorder, recurrent severe without psychotic features (principal); F11.21 Opioid dependence, in remission; F17.210 Nicotine dependence, cigarettes, uncomplicated; K20.9 Esophagitis, unspecified; T20 Burn and corrosion of head, face, and neck; T54 Toxic effect of corrosive substances; Y92.89 Other specified places as the place of occurrence of the external cause; Z59.0 Homelessness; Z79.899 Other long term (current) drug therapy

== ENCOUNTER 2018-07-17 03:41 | Inpatient (IN) | payer MEDICAID, OTHER ==
[~2018-07-17] VITALS: Ht 180.3 cm; Wt 75.6 kg
[~2018-07-17 03:41] MED LIST changes: +ARIP10TAB PO; +BUPR1SUB5 SL; +CLON-412 PO; +CLONI1TA PO; +DOXE25CA PO; +EFFE150C2 PO; +EFFE75CA2 PO; +EPCL1TAB PO; +HYDRO50TAB PO; +IPRA0.00 NEB; +MELO7.5T7 PO; +MIRT15TA3 PO; +MIRT45TA4 PO; +PANT40TA3 PO; +PARO25TA PO; +PATIENT COMMENT; +PAXI20TA29 PO; +PAXI30TA11 PO; +RISP0.253 PO; +SUBO12MI SL; -TRAZ-136; +TRAZ-163; +TRAZ1TAB14 PO; +VIST50CA PO
[2018-07-17 04:03] LABS: BASO % 0.5 % (0.0-1.0); EOS # 0.2 10^3/uL (0.0-0.50); EOS % 2.7 % (0.0-3.0); HEMATOCRIT 44.9 % (42.0-52.0); HEMOGLOBIN 15.7 g/dl (13.5-17.5); LYMPH # 1.9 10^3/uL (1.5-4.5); MEAN CORPUSCULAR VOLUME 80.2 fl (80.0-96.0); MONO # 1.2 10^3/uL (0.0-0.8); MONO % 15.7 % (0.0-5.0); NEUTROPHILS # 4.2 10^3/uL (1.8-7.7); PLATELET COUNT, AUTOMATED 212 10^3/uL (150-450); WHITE BLOOD COUNT 7.5 10^3/uL (4.0-10.0)
[2018-07-17] MEDS ORDERED: NS 1,000 ML IV ONE ×2 (04:15→07:00)
[2018-07-17] MEDS ORDERED: TETANUS/DIPHTHERIA TOX ADSORB ADULT 0.5ML SYR/VIAL (90714) IM ONE (04:30)
[2018-07-17 04:40] LABS: ALT/SGPT 39 U/L (12-78); BILIRUBIN,DIRECT 0.3 MG/DL (0.0-0.2); BLOOD UREA NITROGEN 16 MG/DL (7-18); CALCIUM LEVEL 8.4 MG/DL (8.5-10.1); CARBON DIOXIDE LEVEL 20 MEQ/L (21-32); CHLORIDE LEVEL 110 MEQ/L (98-107); CPK CREATINE PHOSPHOKINASE 671 U/L (39-308); CREATININE FOR GFR 1.31 MG/DL (0.70-1.30); GLOMERULAR FILTRATION RATE > 60.0 (>60); GLUCOSE, FASTING 127 MG/DL (70-100); SALICYLATE LEVEL < 1.7 MG/DL (5.0-30.0); SODIUM LEVEL 139 MEQ/L (136-145); TOTAL PROTEIN 7.4 GM/DL (6.4-8.2)
[2018-07-17 04:41] LABS: ACETAMINOPHEN LEVEL < 2.0 UG/ML (10.0-30.0)
[2018-07-17 06:43] LABS: AMPHETAMINES LEVEL URINE POSITIVE (NEGATIVE); BARBITURATES URINE NEGATIVE (NEGATIVE); BENZODIAZEPINES URINE NEGATIVE (NEGATIVE); CANNABINOIDS URINE POSITIVE (NEGATIVE); COCAINE METABOLITE URINE NEGATIVE (NEGATIVE); METHADONE URINE NEGATIVE (NEGATIVE); OPIATES URINE NEGATIVE (NEGATIVE); PHENCYCLIDINE URINE NEGATIVE (NEGATIVE)
[2018-07-17] MEDS ORDERED: NICOTINE 21MG/24HR 1 EA TRANSDERMAL TD ONE (12:45)
[2018-07-17] MEDS ORDERED: MOM 30ML SUSPENSION UDC PO PRN (12:45)
[2018-07-17] MEDS ORDERED: ACETAMINOPHEN TAB 650MG DOSE (2X325MG) PO PRN (12:45)
[2018-07-17] MEDS ORDERED: traZODone 50 MG TAB PO PRN (12:45)
[2018-07-17] MEDS ORDERED: MAALOX 30 ML SUSP *UDC PO PRN (12:45)
[2018-07-17 18:00] VITALS: BP 141/72
[2018-07-17] MEDS: OLANZapine ORAL DISINTEGRATING TAB 5MG PO PRN (18:40)
--- NOTE | 2018-07-17 19:34 | ECGEPIP ---
Stationary ECG Study [facility] - ED Test Date: 2018-07-17 Pat Name: ANNITA ADAMS Department: Room: - Gender: M Mail List Processor: MT : 1985 Requested By: IVAN Leong Order Number: [id number] Reading MD: Ayanna Dejesus Measurements Intervals [place] Rate: 140 P: 53 IN: 129 QRS: 25 QRSD: 81 T: 28 QT: 275 QTc: 421 Interpretive Statements SINUS TACHYCARDIA, POSSIBLE ATRIAL FLUTTER ABNORMAL RHYTHM ECG BASELINE ARTIFACT LIMITS INTERPRETATION Electronically Signed On 07-17-2018 19:34:19 EST by Ayanna Dejesus
[2018-07-18 06:00] VITALS: BP 119/54
[2018-07-18] MEDS: NICOTINE 21MG/24HR 1 EA TRANSDERMAL TD SCH (13:55)
[2018-07-18] MEDS: OLANZapine ORAL DISINTEGRATING TAB 5MG PO PRN (17:12)
[2018-07-18] MEDS: FLUoxetine 20 MG CAP PO SCH (17:12)
[2018-07-18 18:00] VITALS: BP 111/59
[2018-07-18] MEDS: QUEtiapine FUMARATE 50 MG TAB PO SCH (21:00)
[2018-07-19 07:06] VITALS: BP 120/56
[2018-07-19] MEDS: FLUoxetine 20 MG CAP PO SCH (08:09)
[2018-07-19] MEDS: NICOTINE 21MG/24HR 1 EA TRANSDERMAL TD SCH (08:10)
[2018-07-19 08:25] LABS: ALT/SGPT 35 U/L (12-78); BLOOD UREA NITROGEN 9 MG/DL (7-18); CALCIUM LEVEL 8.5 MG/DL (8.5-10.1); CARBON DIOXIDE LEVEL 25 MEQ/L (21-32); CHLORIDE LEVEL 107 MEQ/L (98-107); CREATININE FOR GFR 0.91 MG/DL (0.70-1.30); GLOMERULAR FILTRATION RATE > 60.0 (>60); GLUCOSE, FASTING 89 MG/DL (70-100); POTASSIUM SERUM 4.1 MEQ/L (3.5-5.1); SODIUM LEVEL 139 MEQ/L (136-145)
[2018-07-19 08:26] LABS: ALBUMIN 3.4 GM/DL (3.2-5.2); BILIRUBIN,TOTAL 0.7 MG/DL (0.2-1.0); CPK CREATINE PHOSPHOKINASE 232 U/L (39-308); T UPTAKE 35 % (33-40); THYROXINE (T4) 11.3 UG/DL (4.5-12.0); TOTAL PROTEIN 6.6 GM/DL (6.4-8.2)
--- NOTE | 2018-07-19 09:42 | HPE ---
DATE OF ADMISSION: 07/17/2018 HISTORY OF PRESENT ILLNESS: Please refer to psychiatric history and evaluation for further details on this admission. This examination and history is intended for medical issues, which may need treatment, followup, or consult on this 33-year-old male. PRIMARY CARE PROVIDER: Dr. Hinkle SOCIAL HISTORY: He is single. He smokes one pack of cigarettes per day. Ethyl alcohol (EtOH) none. Illicit drugs: History of heroin use. History of ximena. FAMILY HISTORY: Mother, history of brain cancer. Father alive and well. ELECTROCARDIOGRAM (EKG): Sinus tachycardia. Possible atrial flutter. Baseline artifact. Will get a repeat in the a.m. Does look like sinus tachycardia. LABORATORY STUDIES: WBC 7.5, hemoglobin 15.7, hematocrit 44.9, platelets 212. Sodium 139, potassium 4.0, chloride 110, CO2 20, BUN 16, creatinine 1.31, calcium 8.4, TSH 0.25, total CPK 671. Toxicology: Urine was positive for amphetamines, positive for cannabinoids. HOME MEDICATIONS: None. PAST MEDICAL HISTORY: History of IVD use/substance use. History of hepatitis C. History of depression. History of intentional ingestion of sulfuric acid. PAST SURGICAL HISTORY: Esophagogastroduodenoscopy (EGD) showed no gross lesions in esophagus. Duodenitis. Ten systems review was done. His only complaint was discomfort on his left forearm from self-inflicted lacerations and his right top of his middle finger, small cut from glass. Otherwise, review of systems was unremarkable. PHYSICAL EXAMINATION: A 33-year-old cooperative male, in no acute distress. Height 71 inches, weight 75.6 kg, body mass index (BMI) 23.2. The patient is alert and oriented times three. Blood pressure 118/65, pulse 66, respirations 16, temperature 97.8, oxygen (O2) saturation is 99% on room air. Pupils are equal and react to light. Extraocular movements (EOMs) intact. Cornea and sclerae clear. Conjunctivae normal. No facial asymmetry. Pharynx, tongue, gums pink and moist. Tongue is midline. NECK: Is supple without lymphadenopathy. No thyromegaly. No goiter. Carotids 2+ without bruit. CHEST: Clear to auscultation without wheeze or retraction. HEART: Is regular. ABDOMEN: Is benign. Bowel sounds are positive. GENITOURINARY ()/RECTAL: Not done. EXTREMITIES: Show equal strength, full range of motion. No cyanosis, clubbing, or edema. Peripheral pulses equal and palpable bilaterally. Cranial nerves III-XII grossly intact. No focal deficits appreciated. SKIN: Warm and dry. Left inner forearm with large self-inflicted two lacerations. No redness or drainage. Tip of right finger, small laceration, no drainage. Capillary refill less than 2 seconds. . Full range of motion. Peripheral pulses equal and palpable bilaterally. IMPRESSION AND PLAN: 1. Psychiatric plan per psychiatry. 2. Nicotine dependence. Patch available. 3. Electrocardiogram (EKG), questionable artifact, sinus tachycardia, questionable flutter. Will get repeat in the a.m. 4. Elevated creatine phosphokinase (CPK). Will encourage liquids. 5. Elevated creatinine of 1.31. Will encourage clear liquids and water. Recheck in a.m. 6. Low thyroid-stimulating hormone (TSH). Will get a thyroid profile for a.m. 7. left forearm and top of right middle finger. Monitor for infection.
--- NOTE | 2018-07-19 09:48 | MHIPNPDOC ---
[facility] Progress Note Progress Note DATE OF SERVICE: 07/19/18 HISTORY: Pt is a 33 y/o CM with a history of substance abuse admitted after girlfriend called 911 as concerned for pt's safety as he's been binging on Crystal Meth for 5 days, acting erratic. Pt is park lot of his aunt and uncle when police arrived. Pt became agitated once police there and cut his left arm and the tip of his middle lt finger off impulsively. In ED, pt stated he did not know why he cut him self. Pt endorsed depressed mood and SI. VITAL SIGNS: See below. NEW TEST RESULTS: See below. CURRENT MEDICATIONS: See below. MENTAL STATUS EXAMINATION: Patient is a 33-year old male, who is of stated age, in hosp scrubs Speech: Is reg rate/rhythm/volume Language skills are good Thought processes including: linear, logical, depressed Thought content: Denies SI/HI. Abstract reasoning, and computation: intact Description of associations: appropriate Description of abnormal or psychotic thoughts: denies hallucinations, delusions, paranoia Judgment: fair Insight: fair Orientation: x3 Recent and remote memory: intact Attention span and concentration:fair Language: appropriate Fund of knowledge: average Mood: depressed. Affect: constricted and flat DIAGNOSES: 1. Depression unspecified 2. R/O Substance induced mood d/o secondary Methamphetamine ASSESSMENT:Pt seen and states that he still feels depressed but denies SI. States he was using meth which caused him to cut himself for reason unknown to him. Regrets cutting himself. States he's tolerating prozac started yesterday and is waiting for it to become beneficial. States he slept well last night. He is attending groups and finding them helpful. He denies insomnia, SI/HI, hallucinations, delusions. Pt feels safe here. MANAGEMENT PLAN: continue current plan. Medications: PROzac 20 mg QAM ZyPREXA ZYDIS 10 mg Q4HP PRN PO ANXIETY/AGITATION SEROquel 50 mg QHS Trazodone 50 mg QHSP PRN PO INSOMNIA TIME SPENT: 30 minutes. Vital Signs Vital Signs Date Time Temp Pulse Resp B/P (MAP) Pulse Ox O2 Delivery O2 Flow Rate FiO2 07/19/18 07:06 96.8 54 12 120/56 (77) 07/17/18 13:43 99 Room Air Laboratory Data 24H Labs Laboratory Tests 2 07/18/18 20:24: Total Creatine Kinase 255 07/19/18 07:28: Total Creatine Kinase 232, Anion Gap 7L, Glomerular Filtration Rate > 60.0, Blood Urea Nitrogen 9, Creatinine 0.91, Sodium Level 139, Potassium Level 4.1, Chloride Level 107, Carbon Dioxide Level 25, Calcium Level 8.5, Aspartate Amino Transf (AST/SGOT) 28, Alanine Aminotransferase (ALT/SGPT) 35, Alkaline Phosphatase 82, Total Bilirubin 0.7, Total Protein 6.6, Albumin 3.4, Albumin/Globulin Ratio 1.06, Thyroid Stimulating Hormone (TSH) 0.090L, Free Thyroxine Index 4.0H, Thyroxine (T4) 11.3, Triiodothyronine (T3) Uptake 35 CBC/BMP Laboratory Tests 07/19/18 07:28 Calcium Level 8.5, Aspartate Amino Transf (AST/SGOT) 28, Alanine Aminotransferase (ALT/SGPT) 35, Total Creatine Kinase 232, Alkaline Phosphatase 82, Total Bilirubin 0.7, Total Protein 6.6, Albumin 3.4 Current Medications Current Medications Acetaminophen (Tylenol Tab) 650 mg Q6HP PRN PO HEADACHE or DISCOMFORT; Start 07/17/18 at 12:45 Al Hydrox/Mg Hydrox/Simethicone (Mylanta) 30 ml Q4HP PRN PO HEARTBURN/INDIGESTION; Start 07/17/18 at 12:45 Fluoxetine HCl (PROzac) 20 mg QAM PO Last administered on 07/19/18at 08:09; Start 07/18/18 at 09:00 Home Med (Med Rec Complete!) ASDIRECTED XX ; Start 07/17/18 at 13:15; Stop 07/17/18 at 13:18; Status DC Magnesium Hydroxide (Milk Of Magnesia) 30 ml DAILYPRN PRN PO CONSTIPATION; Start 07/17/18 at 12:45 Nicotine (Nicoderm Cq 21mg) 1 patch DAILY TD Last administered on 07/19/18at 08:10; Start 07/18/18 at 13:15 Olanzapine (ZyPREXA ZYDIS) 10 mg Q4HP PRN PO ANXIETY/AGITATION Last admini stered on 07/18/18at 17:12; Start 07/17/18 at 18:30 Quetiapine Fumarate (SEROquel) 50 mg QHS PO ; Start 07/18/18 at 21:00 Trazodone HCl (Desyrel) 50 mg QHSP PRN PO INSOMNIA; Start 07/17/18 at 12:45 Allergies Coded Allergies: No Known Allergies (Unverified , 12/11/16) JUSTIN SALGADO DO Jul 19, 2018 9:48 am
--- NOTE | 2018-07-19 17:40 | REP ---
THYROID ULTRASOUND: 07/19/2018. Clinical history: Abnormal thyroid function tests. Findings: There are no prior studies. The right thyroid lobe measures 5.7 x 2.1 x 1.7 cm. The left lobe is 4.8 x 1.6 x 1.1 cm. The isthmus has a midline thickness of 2 mm. The right thyroid lobe shows a upper pole lateral 6 x 5 x 3 mm hypoechoic solid nodule. It slightly deforms the contour of the thyroid but would be doubtful to be palpable. I do not see other thyroid nodule or cyst. No abnormal calcifications. No abnormal blood flow. Impression: 1. The right lobe is mildly enlarged overall with 6 x 5 x 3 mm solid slightly heterogeneous nodule. This is not a cyst. Left lobe without nodule or mass. Isthmus was normal. 2. Any decision to biopsy should be based on clinical factors such as patient age, size of the lesion, growth of the lesion or, if appropriate, results of scintigraphy. Electronically Signed by Chandu Cottrell MD 07/19/2018 06:02 P
[2018-07-19 18:00] VITALS: BP 114/58
[2018-07-19] MEDS: OLANZapine ORAL DISINTEGRATING TAB 5MG PO PRN (18:44)
[2018-07-19] MEDS: QUEtiapine FUMARATE 50 MG TAB PO SCH (21:00)
[2018-07-20 06:46] VITALS: BP 119/59
[2018-07-20 08:23] LABS: FREE T4 1.31 NG/DL (0.76-1.46); THYROID STIMULATING HORMONE 0.064 uIU/ML (0.358-3.740)
[2018-07-20] MEDS: NICOTINE 21MG/24HR 1 EA TRANSDERMAL TD SCH (08:45)
[2018-07-20] MEDS: FLUoxetine 20 MG CAP PO SCH (08:45)
--- NOTE | 2018-07-20 10:15 | MHIPNPDOC ---
[facility] Progress Note Progress Note DATE OF SERVICE: 07/20/18 HISTORY: Pt is a 33 y/o CM with a history of substance abuse admitted after girlfriend called 911 as concerned for pt's safety as he's been binging on Crystal Meth for 5 days, acting erratic. Pt is park lot of his aunt and uncle when police arrived. Pt became agitated once police there and cut his left arm and the tip of his middle lt finger off impulsively. In ED, pt stated he did not know why he cut him self. Pt endorsed depressed mood and SI. VITAL SIGNS: See below. NEW TEST RESULTS: See below. CURRENT MEDICATIONS: See below. MENTAL STATUS EXAMINATION: Patient is a 33-year old male, who is of stated age, in hosp scrubs Speech: Is reg rate/rhythm/volume Language skills are good Thought processes including: linear, logical, depressed Thought content: Denies SI/HI. Abstract reasoning, and computation: intact Description of associations: appropriate Description of abnormal or psychotic thoughts: denies hallucinations, delusions, paranoia Judgment: fair Insight: fair Orientation: x3 Recent and remote memory: intact Attention span and concentration:fair Language: appropriate Fund of knowledge: average Mood: depressed. Affect: constricted and flat, irritable, anxious DIAGNOSES: 1. Depression unspecified 2. R/O Substance induced mood d/o secondary Methamphetamine ASSESSMENT:Pt seen and states that he still feels depressed but denies SI. States he believes he can go home soon and anxious to know exactly when and advised him that we'll see how he's doing tomorrow regarding depressed mood and anxiety, SI and if feels improved and safe with no SI it may be possible to d/c him. Pt appears anxious and irritable about this due to possible methamphetamine craving that he will not admit to. Continues to regret cutting himself. States he's tolerating prozac and is still waiting for it to become beneficial. States he slept well last night. He is attending groups some and finding them helpful. Encouraged to attend all groups and not isolate in his room to promote improvement in mood. He denies insomnia, SI/HI, hallucinations, delusions. Pt feels safe here. MANAGEMENT PLAN: continue current plan. Medications: PROzac 20 mg QAM ZyPREXA ZYDIS 10 mg Q4HP PRN PO ANXIETY/AGITATION SEROquel 50 mg QHS Trazodone 50 mg QHSP PRN PO INSOMNIA TIME SPENT: 30 minutes. Vital Signs Vital Signs Date Time Temp Pulse Resp B/P (MAP) Pulse Ox O2 Delivery O2 Flow Rate FiO2 07/20/18 06:46 98.8 60 14 119/59 (79) 07/17/18 13:43 99 Room Air Laboratory Data 24H Labs Laboratory Tests 2 07/20/18 07:11: Total Creatine Kinase 133, Thyroid Stimulating Hormone (TSH) 0.064L, Free Thyroxine 1.31 Current Medications Current Medications Acetaminophen (Tylenol Tab) 650 mg Q6HP PRN PO HEADACHE or DISCOMFORT; Start 07/17/18 at 12:45 Al Hydrox/Mg Hydrox/Simethicone (Mylanta) 30 ml Q4HP PRN PO HEARTBURN/INDIGESTION; Start 07/17/18 at 12:45 Fluoxetine HCl (PROzac) 20 mg QAM PO Last administered on 07/20/18at 08:45; Start 07/18/18 at 09:00 Home Med (Med Rec Complete!) ASDIRECTED XX ; Start 07/17/18 at 13:15; Stop 07/02 11/17 at 13:18; Status DC Magnesium Hydroxide (Milk Of Magnesia) 30 ml DAILYPRN PRN PO CONSTIPATION; Start 07/17/18 at 12:45 Nicotine (Nicoderm Cq 21mg) 1 patch DAILY TD Last administered on 07/20/18at 08:45; Start 07/18/18 at 13:15 Olanzapine (ZyPREXA ZYDIS) 10 mg Q4HP PRN PO ANXIETY/AGITATION Last administered on 07/19/18at 18:44; Start 07/17/18 at 18:30 Quetiapine Fumarate (SEROquel) 50 mg QHS PO ; Start 07/18/18 at 21:00 Trazodone HCl (Desyrel) 50 mg QHSP PRN PO INSOMNIA; Start 07/17/18 at 12:45 Allergies Coded Allergies: No Known Allergies (Unverified , 12/11/16) JUSTIN SALGADO DO Jul 20, 2018 10:15 am
[2018-07-20] MEDS: OLANZapine ORAL DISINTEGRATING TAB 5MG PO PRN (17:54)
[2018-07-20 18:00] VITALS: BP 122/70
--- NOTE | 2018-07-20 19:52 | MHHPE ---
DATE OF ADMISSION: 07/17/2018 DATE OF EVALUATION: 07/18/2018 HISTORY OF PRESENT ILLNESS: This is one of multiple admissions of a 33-year-old man who was brought in by the police. Apparently the patient's girlfriend called the police stating that the patient was trying to overdose on methamphetamine and it is reported that when the police arrived he took a pair of broken glass and cut his forearms. He had already apparently sliced off the tip of his middle left finger. The patient today tells me that he was not suicidal and he was not trying to overdose on methamphetamine. He admits he was abusing methamphetamine and he said, "I cut myself because I was hallucinating." When I asked him to elaborate he said, "I thought people were after me." The patient states that he no longer feels that way today though. He admits however that he has been feeling depressed for months. He stated, "I just don't care anymore." He says he feels hopeless and helpless and has feelings of worthlessness. He denies active suicidal thoughts but he admits to wishes today. He complains of anhedonia. He states that he lost his job recently. He admits that it was due to his alcohol abuse. The patient admits that he was attending [facility] outpatient clinic until a year ago and was on Abilify 10 mg once daily, Vistaril 100 mg three times a day for anxiety, Remeron 45 mg at bedtime, doxepin 100 mg at bedtime and clonidine 0.1 mg twice a day for withdrawal. The patient apparently stopped followup as soon as his probation was done. The patient has a positive toxicology for amphetamines and cannabis. Of note is that according to documentation in the emergency room he told them that he had been using methamphetamine for several days because he admits that he was doing it to kill himself though the patient denies. PAST PSYCHIATRIC HISTORY: The patient had prior hospitalization at [facility] from 10/11/2017 to 10/28/2017. He had tried to overdose on Drano at the time. He states that he has been treated on multiple medications in the past; many of which he does not feel is effective. FAMILY HISTORY: There is no history of any suicides in the family. PAST MEDICAL HISTORY: The patient has a history of hepatitis C. ABUSE HISTORY: There is no history of any physical or sexual abuse in this patient. SUBSTANCE ABUSE HISTORY: It seems that currently he has been abusing methamphetamine and cannabis. He does have a history of opioid abuse in the past. He denies that he has been using that recently. He states that when he was going to [facility], they were also prescribing Suboxone for him, along with Abilify 10 mg, Remeron 45 mg and doxepin 100 mg, Vistaril 100 mg three times a day for anxiety, clonidine 0.1 mg twice a day for withdrawal. REVIEW OF SYSTEMS: VITAL SIGNS: Blood pressure 119/54, pulse 57, respirations 18. APPEARANCE: The patient did not appear to be in any acute distress. NEUROMUSCULAR SYSTEM: The patient's gait is normal. There were no involuntary movements. All other systems were reviewed and found to be negative. MENTAL STATUS EXAMINATION: This patient is alert and poor the whole interview. He is verbally spontaneous. There is no formal thought disorder noted. He said his mood is anxious and depressed. Affect is full range and he continues to have suicidal thoughts but he is able to contract for safety and denies any particular plans. He denies homicidal ideation. Concentration is fair. His memory was intact. Insight and judgment is poor. DIAGNOSES: 1. 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 2. Stimulant use disorder, severe. 3. Cannabis use disorder, severe. 4. Opiate use disorder, in remission. TREATMENT PLAN: At this point, the patient did think that the last combination of medications that he was on that included the Abilify was not helpful. He wants me to prescribe him something other than Abilify and so I recommended Seroquel 50 mg at bedtime and I have discussed that this would be used together to enhance the effects of an antidepressant. I wanted to put him back on Remeron since this is what he was on before and he says he has a lot of trouble with sleep but the patient became angry because he insisted that Remeron was not an antidepressant and that it was only a medication for sleep and then he said that he did not want me to prescribe the Remeron for him at all. We will continue to titrate his medications as indicated until he is stable for discharge. MIKAYLA
[2018-07-20] MEDS: QUEtiapine FUMARATE 50 MG TAB PO SCH (21:00)
[2018-07-21 06:00] VITALS: BP 119/63
--- NOTE | 2018-07-21 08:50 | MHDSPDOC ---
[facility] Discharge Summary Discharge Summary DATE OF ADMISSION: Jul 17, 2018 at 12:32 pm DATE OF DISCHARGE: Jul 21, 2018 DISCHARGE DIAGNOSES: 1. Depression unspecified 2. R/O Substance induced mood d/o secondary Methamphetamine REASON FOR ADMISSION: Pt is a 33 y/o CM with a history of substance abuse admitted after girlfriend called 911 as concerned for pt's safety as he's been binging on Crystal Meth for 5 days, acting erratic. Pt is park lot of his aunt and uncle when police arrived. Pt became agitated once police there and cut his left arm and the tip of his middle lt finger off impulsively. In ED, pt stated he did not know why he cut him self. Pt endorsed depressed mood and SI. CONSULTANTS INVOLVED: none TREATMENT AND PROGRESS ON THE UNIT : Pt was admitted to [facility], seen for psychiatric assessment and restarted on his outpatient medication seroquel 50mg qhs for anxiety/insomnia. He was started on prozac increased to 20mg daily for mood. He was provided trazodone 50mg qhs prn insomnia. Pt found his medications beneficial and tolerated them well. He attended groups daily during his stay. His symptoms improved with treatment. He withdrew off methamphetamine safely thru sleeping. On day of discharge he denied depression, anxiety, insomnia, SI/HI, hallucinations, delusions. He was discharged home after family meeting with his girlfriend with follow-up at [facility]. He felt safe for discharge. DISCHARGE ASSESSMENT: Pt seen and states that he feels "alright" and is looking forward to going home today. States he's tolerating his medication and finding it beneficial. Continues to regret cutting himself. States he slept well last night. He is attending groups some and finding them helpful. He denies depression, anxiety, insomnia, SI/HI, hallucinations, delusions. He's motivated toward his sobriety. Pt feels safe to discharge home today. MENTAL STATUS EXAMINATION ON DISCHARGE: Patient is a 33-year old male, who is of stated age, in hosp scrubs Speech: Is reg rate/rhythm/volume Language skills are good Thought processes including: linear, logical, future oriented Thought content: Denies SI/HI. Abstract reasoning, and computation: intact Description of associations: appropriate Description of abnormal or psychotic thoughts: denies hallucinations, delusions, paranoia Judgment: good Insight: good Orientation: x3 Recent and remote memory: intact Attention span and concentration:fair Language: appropriate Fund of knowledge: average Mood: "alriight" Affect: euthymic, full, calm MEDICATIONS ON DISCHARGE: PROzac 20 mg QAM SEROquel 50 mg QHS Trazodone 50 mg QHSP PRN PO INSOMNIA PLAN/FOLLOWUP ARRANGEMENTS: D/c home [facility]. The amount of time spent in the coordination of care for this patient was approximately 30 minutes. Vital Signs/I&Os Vital Signs Date Time Temp Pulse Resp B/P (MAP) Pulse Ox O2 Delivery O2 Flow Rate FiO2 07/21/18 06:00 98.8 61 12 119/63 (81) 07/17/18 13:43 99 Room Air Laboratory Data Labs 24H Laboratory Tests 2 07/21/18 07:26: Medications No Active Prescriptions or Reported Meds Allergies Coded Allergies: No Known Allergies (Unverified , 12/11/16) JUSTIN SALGADO DO Jul 21, 2018 8:50 am
[2018-07-21] MEDS ORDERED: FLUO20CA19 PO (08:56)
[2018-07-21] MEDS ORDERED: TRAZO50TA PO (08:56)
[2018-07-21] MEDS ORDERED: QUET5TAB PO (08:56)
[2018-07-21] MEDS: NICOTINE 21MG/24HR 1 EA TRANSDERMAL TD SCH (09:00)
[2018-07-21] MEDS: FLUoxetine 20 MG CAP PO SCH (09:04)
== END 2018-07-21 13:47 | disposition home or self-care (01) | DRG 754 ==
LOC: M ED 03:41 → M ED INP 12:32 → M PSY 14:30
PROVIDERS: ADMIT Psychiatry & Neurology Psychiatry; ATTEND Psychiatry & Neurology Psychiatry
DX: F32.9 Major depressive disorder, single episode, unspecified (principal); F15.24 Other stimulant dependence with stimulant-induced mood disorder; F12.20 Cannabis dependence, uncomplicated; F17.210 Nicotine dependence, cigarettes, uncomplicated; F11.11 Opioid abuse, in remission; Z91.5 Personal history of self-harm; Z56.0 Unemployment, unspecified; S51.812A Laceration without foreign body of left forearm, initial encounter; X78.0XXA Intentional self-harm by sharp glass, initial encounter; S61.213A Laceration without foreign body of left middle finger without damage to nail, initial encounter; Y92.009 Unspecified place in unspecified non-institutional (private) residence as the place of occurrence of the external cause

== ENCOUNTER → 2018-07-29 | Outpatient (CLI) | payer MEDICAID ==
[~2018-07-29] MED LIST changes: +FLUO20CA19 PO; +QUET5TAB PO; +TRAZO50TA PO
== END ==
LOC: M OUTALCOH 07:54
PROVIDERS: ATTEND Psychiatry & Neurology Psychiatry
DX: Z13.89 Encounter for screening for other disorder (principal); F11.20 Opioid dependence, uncomplicated

== ENCOUNTER 2018-08-09 09:30 | Outpatient (RCR) | payer MEDICAID | END 2018-08-29 | LOC: M OUTALCOH 09:30 | PROVIDERS: ATTEND Psychiatry & Neurology Psychiatry | DX: F11.20 Opioid dependence, uncomplicated (principal); F15.20 Other stimulant dependence, uncomplicated ==

== ENCOUNTER → 2018-09-09 | Outpatient (CLI) | payer MEDICAID ==
[~2018-09-09] MED LIST changes: -ARIP10TAB PO; +ARIP1TAB PO
== END ==
LOC: M OUTALCOH 07:50
PROVIDERS: ATTEND Psychiatry & Neurology Psychiatry
DX: F15.20 Other stimulant dependence, uncomplicated (principal); F11.20 Opioid dependence, uncomplicated

== ENCOUNTER → 2018-09-28 | Outpatient (RCR) | payer MEDICAID | LOC: M OUTALCOH 09-21 09:47 | PROVIDERS: ATTEND Psychiatry & Neurology Psychiatry | DX: F11.20 Opioid dependence, uncomplicated (principal); F15.20 Other stimulant dependence, uncomplicated; F17.200 Nicotine dependence, unspecified, uncomplicated ==

== ENCOUNTER 2018-10-01 14:50 | Outpatient (RCR) | payer MEDICAID | END 2018-10-29 | LOC: M OUTALCOH 14:50 | PROVIDERS: ATTEND Psychiatry & Neurology Psychiatry | DX: F11.20 Opioid dependence, uncomplicated (principal); F15.20 Other stimulant dependence, uncomplicated; F17.200 Nicotine dependence, unspecified, uncomplicated ==

== ENCOUNTER 2018-10-06 21:17 | Emergency (ER) | payer MEDICAID, OTHER ==
[~2018-10-06] VITALS: Ht 177.8 cm; Wt 68.5 kg
[2018-10-06 22:07] VITALS: BP 140/93
== END 2018-10-06 22:11 | disposition home or self-care (01) ==
LOC: M ED 21:17 → EDBD 21:17 → M ED 22:11
DX: F19.10 Other psychoactive substance abuse, uncomplicated (principal); B19.20 Unspecified viral hepatitis C without hepatic coma; F33.9 Major depressive disorder, recurrent, unspecified; F90.9 Attention-deficit hyperactivity disorder, unspecified type; F17.210 Nicotine dependence, cigarettes, uncomplicated

== ENCOUNTER 2019-10-16 23:08 | Inpatient (IN) | payer OTHER ==
[~2019-10-16] VITALS: Ht 177.8 cm; Wt 73.9 kg
[~2019-10-16 23:08] MED LIST changes: -FLUO20CA19 PO; +FLUO20CA22 PO; +HYDR1TAB33 PO; -HYDRO50TAB PO; -PARO25TA PO; +PARO25TA8 PO; -SERT-155 PO; +SERT50TA29 PO; -TRAZ-163; +TRAZ-257; +TRAZ1TAB10 PO; -TRAZO50TA PO
[2019-10-16] MEDS ORDERED: SUBO8MIS SL (23:12)
[2019-10-16 23:40] LABS: BASO % 0.4 % (0.0-1.0); EOS # 0.1 10^3/uL (0.0-0.5); EOS % 1.6 % (0.0-3.0); HEMATOCRIT 39.7 % (42.0-52.0); HEMOGLOBIN 13.9 g/dl (13.5-17.5); LYMPH # 2.3 10^3/uL (1.5-5.0); LYMPH % 27.4 % (24.0-44.0); MEAN CORPUSCULAR HEMOGLOBIN 29.2 pg (27.0-33.0); MEAN CORPUSCULAR VOLUME 83.4 fl (80.0-96.0); MONO # 1.3 10^3/uL (0.0-0.8); MONO % 15.2 % (0.0-5.0); NEUTROPHILS # 4.5 10^3/uL (1.5-8.5); NEUTROPHILS % 55.2 % (36.0-66.0); PLATELET COUNT, AUTOMATED 234 10^3/uL (150-450); RED BLOOD COUNT 4.76 10^6/uL (4.30-6.10); WHITE BLOOD COUNT 8.2 10^3/uL (4.0-10.0)
[2019-10-17 00:23] LABS: ALT/SGPT 27 U/L (12-78); BILIRUBIN,DIRECT 0.2 MG/DL (0.0-0.2); BILIRUBIN,TOTAL 0.4 MG/DL (0.2-1.0); BLOOD UREA NITROGEN 15 MG/DL (7-18); CALCIUM LEVEL 8.7 MG/DL (8.5-10.1); CARBON DIOXIDE LEVEL 30 MEQ/L (21-32); CHLORIDE LEVEL 103 MEQ/L (98-107); CREATININE FOR GFR 1.04 MG/DL (0.70-1.30); ETHYL ALCOHOL (ETHANOL) < 0.003 % (0.000-0.010); GLOMERULAR FILTRATION RATE > 60.0 (>60); GLUCOSE, FASTING 104 MG/DL (70-100); LIPASE 71 U/L (73-393); POTASSIUM SERUM 3.3 MEQ/L (3.5-5.1); SODIUM LEVEL 140 MEQ/L (136-145); TOTAL PROTEIN 7.7 GM/DL (6.4-8.2)
[2019-10-17] MEDS ORDERED: GASTROGRAFIN SOLUTION 30ML (Q9963) As Ordered ONE (00:27)
[2019-10-17] MEDS ORDERED: PANTOPRAZOLE 40MG VIAL (C9113 PER 1) IV ONE (00:30)
[2019-10-17] MEDS: GASTROGRAFIN SOLUTION 30ML PO SCH ×2 (00:34→01:17)
[2019-10-17] MEDS ORDERED: ISOVUE-370 76% 100ML VIAL As Ordered ONE (01:56)
[2019-10-17] MEDS ORDERED: METAL LOCK LOOP XX ONE (02:43)
--- NOTE | 2019-10-17 02:43 | REPVR ---
PROCEDURE INFORMATION: Exam: CT Abdomen And Pelvis With Contrast Exam date and time: 10/17/2019 2:10 AM Age: 34 years old Clinical indication: Abdominal pain TECHNIQUE: Imaging protocol: Computed tomography of the abdomen and pelvis with intravenous contrast. Radiation optimization: All CT scans at this facility use at least one of these dose optimization techniques: automated exposure control; mA and/or kV adjustment per patient size (includes targeted exams where dose is matched to clinical indication); or iterative reconstruction. Contrast material: ISO 370; Contrast volume: 100 ml; Contrast route: IV; COMPARISON: CT ABD/PEL W/IV CONTRAST ONLY 12/21/2016 6:19 AM FINDINGS: Liver: The liver attenuation is 85 Hounsfield units and the spleen is 98 Hounsfield units. Gallbladder and bile ducts: The gallbladder is somewhat contracted with no stones. Pancreas: Normal. No ductal dilation. Spleen: Normal. No splenomegaly. Adrenals: Normal. No mass. Kidneys and ureters: Minimal nonobstructing bilateral renal calculi. Stomach and bowel: Mild distention of proximal small bowel with air-fluid levels with normal distal small bowel consistent with a small bowel obstruction. There is suggestion of a point of obstruction or transition in the mid abdomen posteriorly to the left of midline on series 201, images # [id number]. Appendix: There are no changes of appendicitis. A normal appendix is not seen. Intraperitoneal space: Unremarkable. No free air. No significant fluid collection. Vasculature: Unremarkable. No abdominal aortic aneurysm. Lymph nodes: Unremarkable. No enlarged lymph nodes. Bladder: Unremarkable as visualized. Reproductive: Unremarkable as visualized. Bones/joints: Unremarkable. No acute fracture. Soft tissues: Unremarkable. IMPRESSION: 1. Decreased evidence of right abdominal enteritis since 12/21/2016. 2. Mild proximal small bowel obstruction with question of a point of transition in the mid abdomen to the left of midline which is new and may be related to an adhesion or possibly enteritis. 3. Minimal nonobstructing bilateral renal calculi. Electronically signed by: Jake Newberry On 10/17/2019 02:43:47 AM
[2019-10-17] MEDS ORDERED: METOCLOPRAMIDE INJ 10MG/2ML VIAL (J2765 PER 1) IV ONE (03:15)
[2019-10-17] MEDS ORDERED: MORPHINE 10 MG/ML 1ML VIAL (J2270) IV ONE (03:15)
[2019-10-17] MEDS: D5W/LR 1,000 ML IV SCH ×4 (03:26→21:31)
[2019-10-17] MEDS: KCL 10MEQ/100ML SWI (KRUN) 10 MEQ in IV 1 EA IV SCH ×3 (06:39→07:54)
[2019-10-17] MEDS: METOCLOPRAMIDE INJ 10MG/2ML VIAL (J2765 PER 1) IV PRN ×3 (06:43→21:32)
[2019-10-17 06:45] VITALS: BP 165/71
--- NOTE | 2019-10-17 07:10 | HPEPDOC ---
General Date of Admission October 17, 2019 at 04:48 Date of Service: October 17, 2019 Attending Physician: PETE DUONG MD Chief Complaint The patient is a 34-year-old male admitted with a reason for visit of Small Bowel Obstruction. Source: Patient Exam Limitations: No limitations Timing/Duration: 4-6 hours Severity: Severe Associated Symptoms: Nausea, Vomiting, Other (abdominal pain) History of Present Illness 34yo M with a history of PSUD in remission, depression, perforated viscus with peritonitis in November 2016 where he required an omental patch for repair of a perforated duodenum, s/p cholecystotomy, gastrotomy and feeding jejunostomy who presents to the ED with acute abdominal pain, N/V reporting bilious non bloody emesis and severe 8/10 abdominal pain that began a few hours prior to presentation. In the ED he was HDS and afebrile in significant distress and was given morphine with some relief. Studies were notable for CT A/P that showed a proimal SBO with a transition point in the mid abdomen to the left of the midline, as well as minimal nonobstructing bilateral renal calculi. WBC was 8.2, hgb 13.9, platelets 234, na 140, K 3.3, Cr 1.04, lipase 71, UA bland and tox screen negative. Dr. Spears was called by the ED physician who recommended NGT decompression, pain management, NPO, fluids and admission to medicine. Home Medications Scheduled Buprenorphine HCl/Naloxone HCl (Suboxone 8 mg-2 mg Sl Film) 1 Each Film, 1 FILM SL BID, (Reported) Allergies Coded Allergies: No Known Allergies (Unverified , 10/16/19) Past Medical History Medical History PSUD in remission, depression, perforated viscus with peritonitis in November 2016 where he required an omental patch for repair of a perforated duodenum, s/p cholecystotomy, gastrotomy and feeding jejunostomy Surgical History History of perforated viscus with peritonitis in November 2016 where he required an omental patch for repair of a perforated duodenum, s/p cholecystotomy, gastrotomy and feeding jejunostomy Family History Significant Family History: No pertinent family hx Social History * Smoker: Denies, current smoker Alcohol: occationally Drugs: denies (has been in remission per his report) Recent Travel/Sick Contacts: Denies: Recent travel, Recent sick contacts Psychosocial History: Anxiety, Prior suicide attempt A-FIB/CHADSVASC A-FIB History Current/History of A-Fib/PAF?: No Current PO Anticoag Therapy: No Age/Risk Factor Scoring CHADSVASC: CHADSVASC Response (Comments) Value Age Risk Factor Age < 65 years old 0 Gender Risk Factor Male 0 Hx of CHF No 0 Hx of HTN No 0 Hx of Stroke/TIA/or VTE No 0 Hx of Diabetes No 0 Hx of Vascular Disease No 0 Total 0 Treatment Treatment ordered: NONE Reason Anticoagulant not given: Not indicated/[id number] Review of Systems Constitutional: Denies: Chills, Fever, Night Sweats Eyes: Denies: Pain, Vision change ENT: Denies: Head Aches, Ear Pain, Dysphagia Skin: Denies: Rash, Lesions, Breakdown Pulmonary: Denies: Dyspnea, Cough Cardiovascular: Denies: Chest Pain, Palpitations, Orthopnea, Paroxysmal Noc. Dyspnea, Lt Headedness Gastrointestinal: Reports: Nausea, Vomiting, Abdominal Pain; Denies: Diarrhea, Constipation, Melena, Hematochezia Genitourinary: Denies: Dysuria, Frequency, Incontinence, Retention Hematologic: Denies: Bruising, Bleeding Excessively Endocrine: Denies: Polydipsia, Polyphagia, Polyuria, Heat Intolerance, Cold Intolerance, Other Endocrine Sx Musculoskeletal: Denies: Neck Pain, Back Pain, Joint Pain, Muscle Pain, Spasms Neurological: Denies: Weakness, Numbness, Change in speech, Confusion Psych: Reports: Mood Normal Physical Examination General Exam: Positive: Alert, No Acute Distress (annoyed to be having the NGT but otherwise not in distress anymore) Eye Exam: Positive: PERRLA, Conjunctiva & lids normal, EOMI; Negative: Sclera icteric ENT Exam: Positive: Atraumatic, Mucous membr. moist/pink, Pharynx Normal Neck Exam: Positive: Supple; Negative: JVD, thyromegaly Chest Exam: Positive: Clear to auscultation, Normal air movement Heart Exam: Positive: Rate Normal, Regular Rhythm, Normal S1, Normal S2; Negative: Murmurs, Rubs Telemetry: Positive: No significant arrhythmia Abdomen Exam: Positive: BS Hypoactive, Soft; Negative: Tenderness (non tender at this time), Hepatospenomegaly, Mass Extremity Exam: Positive: Normal pulses; Negative: Clubbing, Cyanosis, Edema Skin Exam: Positive: Nl turgor and temperature, Other skin issue (has various tattoos); Negative: Breakdown, Lesion Neuro Exam: Positive: Normal Speech, Strength at 5/5 X4 ext, Normal Tone, Sensation Intact, Cranial Nerves 3-12 NL Psych Exam: Positive: Mental status NL, Oriented x 3 Vital Signs Vital Signs Date Time Temp Pulse Resp B/P (MAP) Pulse Ox O2 Delivery O2 Flow Rate FiO2 10/17/19 05:30 142/82 (102) 10/17/19 05:21 75 97 10/17/19 03:25 18 10/16/19 23:08 98.0 Room Air Laboratory Data Labs 24H Laboratory Tests 2 10/16/19 23:33: Immature Granulocyte % (Auto) 0.2, Neutrophils (%) (Auto) 55.2, Lymphocytes (%) (Auto) 27.4, Monocytes (%) (Auto) 15.2H, Eosinophils (%) (Auto) 1.6, Basophils (%) (Auto) 0.4, Neutrophils # (Auto) 4.5, Lymphocytes # (Auto) 2.3, Monocytes # (Auto) 1.3H, Eosinophils # (Auto) 0.1, Basophils # (Auto) 0.0, Nucleated Red Blood Cells % (auto) 0.0, Urine Color YELLOW, Urine Appearance HAZY, Urine pH 6.0, Urine Specific [place] 1.029, Urine Protein NEGATIVE, Urine Glucose (UA) NEGATIVE, Urine Ketones TRACEH, Urine Blood NEGATIVE, Urine Nitrite NEGATIVE, Urine Bilirubin NEGATIVE, Urine Urobilinogen 2.0H, Urine Leukocyte Esterase NEGATIVE, Urine WBC (Auto) 3, Urine RBC (Auto) 2, Urine Hyaline Casts (Auto) 0, Urine Bacteria (Auto) NEGATIVE, Urine Squamous Epithelial Cells 0, Urine Mucus (Auto) SMALL, Urine Sperm (Auto) , Anion Gap 7L, Glomerular Filtration Rate > 60.0, Calcium Level 8.7, Total Bilirubin 0.4, Direct Bilirubin 0.2, Aspartate Amino Transf (AST/SGOT) 27, Alanine Aminotransferase (ALT/SGPT) 27, Alkaline Phosphatase 82, Total Protein 7.7, Albumin 4.0, Albumin/Globulin Ratio 1.1, Lipase 71L, Ethyl Alcohol Level < 0.003 CBC/BMP Laboratory Tests 10/16/19 23:33 Assessment/Plan 34yo M with a history of PSUD in remission, depression, perforated viscus with peritonitis in November 2016 where he required an omental patch for repair of a perforated duodenum, s/p cholecystotomy, gastrotomy and feeding jejunostomy who presents to the ED with acute abdominal pain, N/V and found to have an SBO now admitted to medicine with Dr. Spears consulted. SBO: likely 2/2 adhesions given extensive abdominal surgery history -NPO -DAMIEN @ 150cc/hr -reglan [id number] for nausea -NGT to low intermittent suction -pain control with morphine [id number] -Dr. Spears consulted, to see him this AM -IV protonix 40 daily History of PSUD: -continue home suboxone DVT ppx: lovenox Diet: NPO Dispo: medsurg Plan / VTE VTE Prophylaxis Ordered?: Yes PETE DUONG MD October 17, 2019 07:10
[2019-10-17 08:15] LABS: HEMATOCRIT 38.9 % (42.0-52.0); HEMOGLOBIN 13.4 g/dl (13.5-17.5); MEAN CORPUSCULAR HEMOGLOBIN 29.1 pg (27.0-33.0); MEAN CORPUSCULAR HGB CONC 34.4 g/dl (32.0-36.5); MEAN CORPUSCULAR VOLUME 84.4 fl (80.0-96.0); PLATELET COUNT, AUTOMATED 217 10^3/uL (150-450); RED BLOOD COUNT 4.61 10^6/uL (4.30-6.10); WHITE BLOOD COUNT 6.3 10^3/uL (4.0-10.0)
[2019-10-17 08:40] LABS: BLOOD UREA NITROGEN 12 MG/DL (7-18); CALCIUM LEVEL 8.9 MG/DL (8.5-10.1); CARBON DIOXIDE LEVEL 29 MEQ/L (21-32); CHLORIDE LEVEL 106 MEQ/L (98-107); CREATININE FOR GFR 0.96 MG/DL (0.70-1.30); GLOMERULAR FILTRATION RATE > 60.0 (>60); GLUCOSE, FASTING 110 MG/DL (70-100); POTASSIUM SERUM 3.8 MEQ/L (3.5-5.1); SODIUM LEVEL 141 MEQ/L (136-145)
[2019-10-17] MEDS: BUPRENORPHINE/NALOXONE 8-2MG SUBLINGUAL TABLET(SUBOXONE) SL SCH ×2 (09:00→21:31)
[2019-10-17] MEDS: ENOXAPARIN 40MG/0.4ML SYRINGE (J1650 PER 10MG) SC SCH (09:00)
[2019-10-17 14:00] VITALS: BP 152/79
--- NOTE | 2019-10-17 14:50 | IPNPDOC ---
Date Seen The patient was seen on 10/17/19. Progress Note SUBJECTIVE: Spencer is a 34-year-old male with PMHx psychoactive substance use disorder in remission, depression, previous perforated viscus and duodenum with peritonitis (11/2016) that required omental patch, gastrotomy, and jejunostomy, who presented to the ED with acute abdominal pain, (8/10), nausea and nonbloody emesis. CT abdomen and pelvis showed proximal small bowel obstruction. General sx consult made (Dr. Spears), NGT placed for decompression and NPO status, with pain and nausea management. Spencer was seen and examined this morning by the hospitalist service. He reports a significant improvement in his abdominal pain and distention from the overnight. He has not had a bowel movement since admission, but does endorse some flatus. There is approximately 300 mL of elias brown fluid, that's been suctioned via NGT. He endorses some mild chills along with the much improved abdominal pain.. He also reports a roughly 20 pound unintentional weight loss over the past 1-2 m onths that coincides with a decreased appetite. He denies currently feeling feverish, or having any chest pain, chest pressure, palpitations, nausea, or vomiting. OBJECTIVE PHYSICAL EXAMINATION: VITAL SIGNS: Please see below. GENERAL: Young male lying upright in bed with NGT. Learning oriented 3. No acute distress. HEENT: Normocephalic, atraumatic. PERRLA. Noninjected, anicteric sclera. MMM without pharyngeal erythema or exudate. No cervical lymphadenopathy appreciated. NG tube present through left near width proximally 300 mL elias brown fluid suctioned off. Thus far. CARDIOVASCULAR: Regular rate, regular rhythm. +S1, S2. No murmur, rub or gallop appreciated. 2+ radial and posterior tibial pulses bilaterally. RESPIRATORY: Clear to auscultation bilaterally with no adventitious breath sounds appreciated. Symmetric chest expansion with adequate tidal volume. Speaking full sentences. Breathing room air. ABDOMINAL: Soft, nondistended, nontender. Normoactive bowel sounds throughout. No tympany to percussion or hepatosplenomegaly appreciated. Vertical midline incisional scar running nearly from xiphoid to umbilicus. EXTREMITIES: Lower extremities free of edema with no signs of cyanosis or clubbing. SKIN: Warm with some moderate clamminess. NEUROLOGICAL: Awake, alert and oriented 3. No focal neurologic deficits appreciated. Non-dysarthric speech. Responding appropriately to questions and commands. PSYCHOLOGICAL: Mood and affect appear appropriate. LABORATORY DATA, IMAGING STUDIES, MICROBIOLOGY: Please see below. DVT prophylaxis ordered?: Yes, bernadette peoples ASSESSMENT AND PLAN: This is a 34yo male w/ h/o PSUD in remission, depression, and previous perforated viscus in 11/2016 that required omental patch for perforated duodenum, s/p cholecystotomy, gastrotomy, and feeding jejunostomy, who presented in early hours of 10/16 with acute abdominal pain, nausea, and non-bloody emesis. He was found to have a SBO on CT, and admitted to med/surg with general surgery consult placed. #Small bowel obstruction -likely 2/2 adhesions from previous extensive 2017 surgeries for perforated viscus -CT A/P: mild prox sbo with question of transition point in mid-abdomen left of midline which is new. Evidence of right abdominal enteritis from 11/2016 has decreased. -NPO diet -c/w Dextrose LR, running 150cc/hr -NGT (jkw-dg-zsscdsywjiix suction) w/ about 300cc removed as of 0900 -morphine 4mg q4h for pain management; IV protonix qd -General surgery consulted (Dr. Spears); hospitalist service appreciates their recommendations #Hypokalemia -sK improved from 3.3-3.8 after three KCl 10mEq IV runs -monitoring with qd BMP #History of PSUD -home suboxone continued -tox screen upon presentation negative #DVT prophylaxis: bernadette peoples DISPOSITION: Pending improvement with NGT decompression and general surgery evaluation. Attending attestation: I evaluated and examined the patient in person; I discussed the care with Resident in detail and agree with the plan above. VS, I&O, 24H, Fishbone Vital Signs/I&O Vital Signs Date Time Temp Pulse Resp B/P (MAP) Pulse Ox O2 Delivery O2 Flow Rate FiO2 10/17/19 06:45 97.4 64 18 165/71 (102) 97 Room Air I&O- Last 24 Hours up to 6 AM0 10/17/19 06:00 Intake Total 710 ml Output Total 800 ml Balance -90 ml Laboratory Data 24H LABS Laboratory Tests 2 10/16/19 23:33: Immature Granulocyte % (Auto) 0.2, Neutrophils (%) (Auto) 55.2, Lymphocytes (%) (Auto) 27.4, Monocytes (%) (Auto) 15.2H, Eosinophils (%) (Auto) 1.6, Basophils (%) (Auto) 0.4, Neutrophils # (Auto) 4.5, Lymphocytes # (Auto) 2.3, Monocytes # (Auto) 1.3H, Eosinophils # (Auto) 0.1, Basophils # (Auto) 0.0, Nucleated Red Blood Cells % (auto) 0.0, Urine Color YELLOW, Urine Appearance HAZY, Urine pH 6.0, Urine Specific [place] 1.029, Urine Protein NEGATIVE, Urine Glucose (UA) NEGATIVE, Urine Ketones TRACEH, Urine Blood NEGATIVE, Urine Nitrite NEGATIVE, Urine Bilirubin NEGATIVE, Urine Urobilinogen 2.0H, Urine Leukocyte Esterase NEGATIVE, Urine WBC (Auto) 3, Urine RBC (Auto) 2, Urine Hyaline Casts (Auto) 0, Urine Bacteria (Auto) NEGATIVE, Urine Squamous Epithelial Cells 0, Urine Mucus (Auto) SMALL, Urine Sperm (Auto) , Anion Gap 7L, Glomerular Filtration Rate > 60.0, Calcium Level 8.7, Total Bilirubin 0.4, Direct Bilirubin 0.2, Aspartate Amino Transf (AST/SGOT) 27, Alanine Aminotransferase (ALT/SGPT) 27, Alkaline Phosphatase 82, Total Protein 7.7, Albumin 4.0, Albumin/Globulin Ratio 1.1, Lipase 71L, Ethyl Alcohol Level < 0.003 10/17/19 08:01: Nucleated Red Blood Cells % (auto) 0.0, Anion Gap 6L, Glomerular Filtration Rate > 60.0, Calcium Level 8.9, Magnesium Level 2.0 CBC/BMP Laboratory Tests 10/16/19 23:33 10/17/19 08:01 VETO SERVIN D.O. October 17, 2019 14:50 BART CALLAHAN MD October 24, 2019 21:34
[2019-10-17 22:00] VITALS: BP 142/80
[2019-10-18] MEDS: MORPHINE 4 MG/ML 1ML VIAL/SYRINGE (J2270) IV PRN ×2 (01:45→20:40)
[2019-10-18] MEDS: D5W/LR 1,000 ML IV SCH ×3 (04:14→12:29)
[2019-10-18 06:00] VITALS: BP 143/82
[2019-10-18 06:14] LABS: HEMATOCRIT 38.3 % (42.0-52.0); HEMOGLOBIN 12.8 g/dl (13.5-17.5); MEAN CORPUSCULAR HEMOGLOBIN 29.2 pg (27.0-33.0); MEAN CORPUSCULAR HGB CONC 33.4 g/dl (32.0-36.5); MEAN CORPUSCULAR VOLUME 87.2 fl (80.0-96.0); PLATELET COUNT, AUTOMATED 176 10^3/uL (150-450); RED BLOOD COUNT 4.39 10^6/uL (4.30-6.10); WHITE BLOOD COUNT 6.5 10^3/uL (4.0-10.0)
[2019-10-18 06:34] LABS: BLOOD UREA NITROGEN 8 MG/DL (7-18); CALCIUM LEVEL 7.9 MG/DL (8.5-10.1); CARBON DIOXIDE LEVEL 29 MEQ/L (21-32); CHLORIDE LEVEL 108 MEQ/L (98-107); CREATININE FOR GFR 0.95 MG/DL (0.70-1.30); GLOMERULAR FILTRATION RATE > 60.0 (>60); GLUCOSE, FASTING 120 MG/DL (70-100); POTASSIUM SERUM 3.5 MEQ/L (3.5-5.1); SODIUM LEVEL 142 MEQ/L (136-145)
[2019-10-18] MEDS ORDERED: POTASSIUM CHLORIDE 10 MEQ SR TABLET PO ONE (09:00)
[2019-10-18] MEDS: BUPRENORPHINE/NALOXONE 8-2MG SUBLINGUAL TABLET(SUBOXONE) SL SCH (09:27)
[2019-10-18] MEDS: ENOXAPARIN 40MG/0.4ML SYRINGE (J1650 PER 10MG) SC SCH (09:51)
--- NOTE | 2019-10-18 11:09 | REP ---
KUB ABDOMEN AND PELVIS: Two KUB films of the abdomen and pelvis are performed. The stomach is not distended. The distal tip of the nasogastric tube is seen in the body of the stomach. The sideport is not visualized. I do not see significant small bowel distension radiographically. There is mild air and fecal material throughout the colon. No abnormal calcifications are seen. IMPRESSION: No radiographic evidence of small bowel obstruction. Electronically Signed by Ty Sood MD 10/18/2019 12:18 P
[2019-10-18] MEDS ORDERED: ACETAMINOPHEN TAB 650MG DOSE (2X325MG) PO PRN (12:45)
[2019-10-18 14:00] VITALS: BP_SYST 143; BP_SYST 147; BP_DIAS 77; BP_DIAS 80
--- NOTE | 2019-10-18 15:55 | IPNPDOC ---
Date Seen The patient was seen on 10/18/19. Progress Note SUBJECTIVE: 34-year-old male with past medical history of perforated ulcer, status post multiple abdominal surgeries is admitted for small bowel obstruction. Patient had an NG tube placed in the emergency room, has been doing well overnight, no new complaints in the morning. Patient underwent KUB in the morning, no signs of small bowel instructions seen. Patient had a reasonable amount of output through the NG tube overnight, has not had any flatus since admission. 10 point review of system is negative so for above PHYSICAL EXAMINATION: VITAL SIGNS: Please see below. GENERAL: No distress HEENT: Normocephalic, atraumatic, moist mucous membranes, NG tube in place NECK: Supple CARDIOVASCULAR EXAMINATION: S1, S2, no murmurs RESPIRATORY EXAMINATION: Clear to auscultation, no wheezing ABDOMINAL EXAMINATION: Soft, nontender, nondistended, hypoactive bowel sounds EXTREMITIES: Range of motion intact SKIN: No rash NEUROLOGICAL EXAMINATION: Alert and oriented 3, no focal deficits PSYCHIATRIC EXAMINATION: Calm and cooperative LABORATORY DATA, IMAGING STUDIES, MICROBIOLOGY: Please see below. ASSESSMENT AND PLAN: 34-year-old male with past medical history of multiple abdominal surgeries secondary to perforated ulcer is admitted for small bowel structure. PROBLEMS: 1. Small bowel obstruction: KUB today without obvious small bowel obstruction, clinically stable, start clear liquid diet, will advance as tolerated, NG tube clamped, continue IV hydration. 2. History of polysubstance abuse. Continue Suboxone DVT prophylaxis: Lovenox. GI prophylaxis: Not needed VS, I&O, 24H, Fishbone Vital Signs/I&O Vital Signs Date Time Temp Pulse Resp B/P (MAP) Pulse Ox O2 Delivery O2 Flow Rate FiO2 10/18/19 14:00 98.4 77 15 143/77 (99) 98 Room Air I&O- Last 24 Hours up to 6 AM 10/18/19 06:00 Intake Total 3700 ml Output Total 2200 ml Balance 1500 ml Laboratory Data 24H LABS Laboratory Tests 2 10/18/19 05:52: Nucleated Red Blood Cells % (auto) 0.0, Anion Gap 5L, Glomerular Filtration Rate > 60.0, Calcium Level 7.9L CBC/BMP Laboratory Tests 10/18/19 05:52 BART CALLAHAN MD October 18, 2019 15:55
[2019-10-18] MEDS: METOCLOPRAMIDE INJ 10MG/2ML VIAL (J2765 PER 1) IV PRN (20:25)
[2019-10-18 20:30] VITALS: BP 145/85
[2019-10-19] MEDS: D5W/LR 1,000 ML IV SCH ×3 (01:43→23:46)
[2019-10-19] MEDS: BUPRENORPHINE/NALOXONE 8-2MG SUBLINGUAL TABLET(SUBOXONE) SL SCH ×3 (02:13→22:05)
--- NOTE | 2019-10-19 05:41 | IPN ---
DATE: 10/18/2019 HISTORY: Patient was admitted in the graphic design manager of 10/17/2019 with diagnosis of a small bowel obstruction. He had presented to the emergency department with some abdominal pain and nausea and vomiting. A CT scan was interpreted by the teleradiologist as suggesting a small bowel obstruction. I did not think that the findings on the CT were very striking and could not identify the area that the radiologist said there was a tapering narrowing. Overnight, the patient has had a nasogastric (NG) tube in place to suction. He reports he has not had any flatus or bowel movement. He is not having any significant abdominal pain currently. VITAL SIGNS: Show that he has been afebrile overnight. His pulse has been in the 60s to low 80s. Blood pressure is good, and his room air oxygen saturations are normal. INTAKE AND OUTPUT: Show the yesterday he had 3500 in with 3000 out. He had 1450 in gastric drainage recorded. This morning, he had approximately 500 mL in the canister when I came to see him at about 7:30. PHYSICAL EXAMINATION: Patient is lying quietly in the hospital bed. He is alert and oriented. He is having some discomfort from the NG tube. Heart exam shows a regular rate and rhythm. The lungs were clear. The abdomen is flat. He has bowel sounds present. The abdomen is soft throughout and nontender. LABORATORY STUDIES: Today, show a white count of 6000 with a hemoglobin of 13, hematocrit of 38, and a platelet count of 176,000. His chemistry profile shows a sodium of 142, potassium 3.5, chloride 108, CO2 of 29, BUN of 8, creatinine 0.95, and a glucose of 120. IMPRESSION: Patient reports no flatus or bowel movement, and he has had approximately 500 mL of lightly tinted watery fluid from his nasogastric tube. The tube appears to be working well. His abdomen is soft, nondistended, and nontender with active bowel sounds. It is my impression that he may well have resolved his obstruction completely. It may be that he never actually had a bowel obstruction and that this was actually some sort of gastritis or gastroenteritis. PLAN: I ordered a KUB to assess his bowel gas pattern and will review this later. If this does not show definite signs of an obstruction, then I think it may be reasonable to perform a contrast study.
[2019-10-19 06:00] VITALS: BP 131/77
[2019-10-19] MEDS: METOCLOPRAMIDE INJ 10MG/2ML VIAL (J2765 PER 1) IV PRN ×3 (06:07→22:05)
[2019-10-19] MEDS: MORPHINE 4 MG/ML 1ML VIAL/SYRINGE (J2270) IV PRN ×3 (06:08→16:03)
[2019-10-19 06:26] LABS: HEMATOCRIT 42.9 % (42.0-52.0); HEMOGLOBIN 14.3 g/dl (13.5-17.5); MEAN CORPUSCULAR HEMOGLOBIN 28.9 pg (27.0-33.0); MEAN CORPUSCULAR HGB CONC 33.3 g/dl (32.0-36.5); MEAN CORPUSCULAR VOLUME 86.7 fl (80.0-96.0); PLATELET COUNT, AUTOMATED 198 10^3/uL (150-450); RED BLOOD COUNT 4.95 10^6/uL (4.30-6.10); WHITE BLOOD COUNT 7.3 10^3/uL (4.0-10.0)
[2019-10-19 06:45] LABS: BLOOD UREA NITROGEN 9 MG/DL (7-18); CALCIUM LEVEL 8.8 MG/DL (8.5-10.1); CARBON DIOXIDE LEVEL 31 MEQ/L (21-32); CHLORIDE LEVEL 107 MEQ/L (98-107); CREATININE FOR GFR 0.92 MG/DL (0.70-1.30); GLOMERULAR FILTRATION RATE > 60.0 (>60); GLUCOSE, FASTING 114 MG/DL (70-100); POTASSIUM SERUM 3.6 MEQ/L (3.5-5.1); SODIUM LEVEL 144 MEQ/L (136-145)
[2019-10-19] MEDS: ENOXAPARIN 40MG/0.4ML SYRINGE (J1650 PER 10MG) SC SCH (09:29)
[2019-10-19] MEDS: KETOROLAC 30 MG/ML 1ML VIAL IV PRN ×3 (09:31→22:06)
[2019-10-19] MEDS: KCL 10MEQ/100ML SWI (KRUN) 10 MEQ in IV 1 EA IV SCH ×3 (10:00→11:47)
[2019-10-19] MEDS ORDERED: E-Z-PAQUE 96% w/w SUSP 176GM BTL As Ordered ONE (12:39)
[2019-10-19] MEDS: PANTOPRAZOLE 40MG VIAL (C9113 PER 1) IV SCH (16:02)
--- NOTE | 2019-10-19 17:57 | IPNPDOC ---
Date Seen The patient was seen on 10/19/19. Progress Note SUBJECTIVE: 34-year-old male with past medical history of perforated ulcer, status post multiple abdominal surgeries is admitted for small bowel obstruction. Patient was unable to tolerate clear liquid diet yesterday, vomited overnight, has had a substantial amount of output via G-tube since then as well. Patient is in the morning, feels lousy, having mild abdominal pain, no other complaints. He denies any shortness of breath, chest pain or headache. He passed flatus once or twice since presentation. 10 point review of system is negative so for above PHYSICAL EXAMINATION: VITAL SIGNS: Please see below. GENERAL: No distress HEENT: Normocephalic, atraumatic, moist mucous membranes, NG tube in place NECK: Supple CARDIOVASCULAR EXAMINATION: S1, S2, no murmurs RESPIRATORY EXAMINATION: Clear to auscultation, no wheezing ABDOMINAL EXAMINATION: Soft, mild tenderness to palpation, nondistended, hypoactive bowel sounds EXTREMITIES: Range of motion intact SKIN: No rash NEUROLOGICAL EXAMINATION: Alert and oriented 3, no focal deficits PSYCHIATRIC EXAMINATION: Calm and cooperative LABORATORY DATA, IMAGING STUDIES, MICROBIOLOGY: Please see below. ASSESSMENT AND PLAN: 34-year-old male with past medical history of multiple abdominal surgeries secondary to perforated ulcer is admitted for small bowel structure. PROBLEMS: 1. Small bowel obstruction: Remains unchanged, back on nothing by mouth status, NG tube has been placed back on suction, scheduled for upper GI series with small bowel follow-through later today, if proximal small bowel obstruction is confirmed, tentatively plan for surgical intervention tomorrow. Continue gentle IV hydration, Gen. surgery following 2. History of polysubstance abuse. Continue Suboxone DVT prophylaxis: Lovenox. GI prophylaxis: Not needed VS, I&O, 24H, Fishbone Vital Signs/I&O Vital Signs Date Time Temp Pulse Resp B/P (MAP) Pulse Ox O2 Delivery O2 Flow Rate FiO2 10/19/19 16:13 18 Room Air 10/19/19 16:03 99.1 73 131/77 94 I&O- Last 24 Hours up to 6 AM 10/19/19 05:59 Intake Total 3738 ml Output Total 3975 ml Balance -237 ml Laboratory Data 24H LABS Laboratory Tests 2 10/19/19 05:46: Nucleated Red Blood Cells % (auto) 0.0, Anion Gap 6L, Glomerular Filtration Rate > 60.0, Calcium Level 8.8 CBC/BMP Laboratory Tests 10/19/19 05:46 BART CALLAHAN MD October 19, 2019 17:57
[2019-10-19 22:00] VITALS: BP 146/78
[2019-10-20] VITALS (9 sets, daily range): BP systolic 116–136; BP diastolic 58–83
[2019-10-20 06:19] LABS: HEMATOCRIT 42.2 % (42.0-52.0); MEAN CORPUSCULAR HEMOGLOBIN 28.8 pg (27.0-33.0); MEAN CORPUSCULAR HGB CONC 33.2 g/dl (32.0-36.5); MEAN CORPUSCULAR VOLUME 86.8 fl (80.0-96.0); PLATELET COUNT, AUTOMATED 191 10^3/uL (150-450); RED BLOOD COUNT 4.86 10^6/uL (4.30-6.10); WHITE BLOOD COUNT 4.1 10^3/uL (4.0-10.0)
[2019-10-20 06:47] LABS: BLOOD UREA NITROGEN 21 MG/DL (7-18); CALCIUM LEVEL 8.6 MG/DL (8.5-10.1); CARBON DIOXIDE LEVEL 34 MEQ/L (21-32); CHLORIDE LEVEL 103 MEQ/L (98-107); CREATININE FOR GFR 1.17 MG/DL (0.70-1.30); GLOMERULAR FILTRATION RATE > 60.0 (>60); GLUCOSE, FASTING 107 MG/DL (70-100); POTASSIUM SERUM 3.5 MEQ/L (3.5-5.1); SODIUM LEVEL 143 MEQ/L (136-145)
[2019-10-20] MEDS: METOCLOPRAMIDE INJ 10MG/2ML VIAL (J2765 PER 1) IV PRN (07:01)
[2019-10-20] MEDS: KETOROLAC 30 MG/ML 1ML VIAL IV PRN (07:02)
--- NOTE | 2019-10-20 09:37 | IPN ---
DATE: 10/19/2019 HISTORY: The patient had a KUB yesterday morning in followup of his small bowel obstruction. This showed that some oral contrast he had had for his CT scan was down in the colon. There were no distended loops of bowel identified. He was started on some clear liquids with his nasogastric (NG) tube in place by the hospitalist and these were subsequently advanced to full liquids with the NG tube still in place and on suction. When I saw him in the afternoon, his abdomen remained soft and nondistended with bowel sounds present. He did complain of a small amount of discomfort at that point. I clamped his NG tube and later in the evening he developed some vomiting with a significant amount of emesis. His NG tube was placed back to suction. Vital signs show that he has been afebrile over the past 24 hours. His pulse is in the upper 60s to as high as91. Blood pressure is good with a normal room air oxygenation. Intake and output shows yesterday he had 3700 in with 3100 out. He had 900 of emesis recorded last evening. His urine output was acceptable. The patient was off the floor when I came to see him today. IMPRESSION: The patient had no abdominal distention and the abdomen was soft and without any significant tenderness yesterday when I saw him despite development of emesis after his NG tube was clamped. This only makes some sense if his obstruction is quite proximal such that he does not develop significant abdominal distention, but does have a persistent obstruction. PLAN: I sent the patient for an upper GI series through his NG tube today. This was done during the course of the late morning and afternoon. The images show some dilated proximal jejunum just a short loop and hen a cut off of the flow. During the images that I saw, there was no passage of any contrast beyond this short dilated segment of small bowel. He clearly has a persistent obstruction with continued output from his NG tube. I will tentatively schedule him for surgery tomorrow and we will hold his Lovenox in the morning. He will receive some preoperative antibiotics. I have also taken the liberty of placing him on some Protonix to try to decrease some of his gastric secretions and also reduce the risk of him developing a recurrent gastric ulcer.
--- NOTE | 2019-10-20 09:37 | CR ---
DATE OF CONSULTATION: 10/17/2019 REASON FOR CONSULTATION: Intestinal obstruction. HISTORY OF PRESENT ILLNESS: The patient is a 34-year-old man who was admitted by the hospitalist in the yearly morning of 10/17/2019. He presented to the emergency department with a complaint of upper abdominal pain with onset of bilious emesis. This had begun several hours prior to presentation and he had multiple episodes of emesis. In the emergency department, he was evaluated with some laboratory studies and subsequently had a CT scan of the abdomen and pelvis. The CT scan was interpreted by the teleradiologist as showing some mild distension of proximal small bowel with air-fluid levels with normal distal small bowel. There was a suggestion made that there may be a transition point in the mid abdomen on the left. A nasogastric tube was placed and he was admitted by the hospitalist, and I am now consulted to evaluate the patient and make recommendations. MEDICATIONS: At the time of admission include: - Suboxone one film sublingually twice daily ALLERGIES: He has no recorded drug allergies. SURGICAL HISTORY: The patient had undergone three surgeries in November of 2016. He has suffered a perforated duodenal ulcer, which was initially treated with omental patch, but showed bile leak around the patch and had this redone and then subsequently had a third procedure for again continued leakage at the site of the perforation. He had a cholecystostomy and gastrostomy tube placed as well as a feeding jejunostomy. He subsequently did well. He apparently was scheduled for a followup upper endoscopy, but this apparently was not done. MEDICAL HISTORY: Significant for a history of substance abuse, currently in remission. He has a history of depression. FAMILY HISTORY: Is of no benefit in his current evaluation. SOCIAL HISTORY: The patient currently denies any tobacco use. He reports occasional alcohol intake. REVIEW OF SYSTEMS: Reveals no history of chest pain, palpitations, shortness of breath, cough, wheezing or sputum production. He has no dysuria or hematuria. He has not noticed any melena or hematochezia. He reports that the abdominal pain and nausea and vomiting basically came out of the blue with no prodrome. He has had no history of deep venous thrombosis (DVT) or pulmonary embolus. There is no history of palmar joint issues. PHYSICAL EXAMINATION: Reveals a pleasant young man lying quietly in the hospital bed. He appears quite uncomfortable with the nasogastric tube in place. Sclerae are anicteric. Mucous membranes are moist. The skin is warm and dry. The neck is supple without mass. Heart exam shows a regular rate and rhythm. Lungs are clear to auscultation bilaterally. The abdomen shows scarring with an upper midline scar. He has several smaller scars on the right and left sides consistent with his prior drains and laparoscopy. There is no sign of hernia. He has bowel sounds present and the abdomen is nondistended, flat and soft without any significant tenderness. Laboratory studies showed that at the time of admission his white count was 8.2 and this has fallen to 6.3 on the morning of 10/17/2019. Hemoglobin of 13, with a hematocrit of 39, and a platelet count is 217,000. His differential count was not significantly abnormal at the time of admission. His chemistry profile from the morning 10/17/2019 shows a sodium of 141, potassium 3.8, chloride 106, CO2 of 29, BUN of 12, creatinine 0.96, and a glucose of 110. CT scan imaging I reviewed personally. He does have a few short segments of small bowel, which appears to be quite proximal in the left upper quadrant, which seem mildly distended and full of fluid. There was a small amount of contrast in the stomach but this has not progressed significantly into the bowel. There is no free air and no significant free fluid. Certainly the small bowel distally is empty. There is some air and stool within the colon. IMPRESSION: Abdominal pain with nausea and vomiting possibly related to a small bowel obstruction. RECOMMENDATIONS: At this point, his abdomen is flat, soft and nontender. His labs remain normal. I do question whether he has a bowel obstruction at all or whether this might actually represent a gastroenteritis type phenomenon. However, he does have some significant output from his nasogastric (NG) tube. He had approximately 600 mL with strain overnight until the morning of the 10/17/2019. The CT scan certainly is not dramatic but there do appear to be some loops of small bowel proximally that are mildly distended. These unfortunately are not well seen because of the non-passage of the oral contrast. I have recommended that we continue to monitor his NG output. I would not recommend advancing his diet at this point. If his abdomen remains benign and his NG output diminishes, then I would consider clamping the NG tube for a trial. The patient was counseled that I would check back later in the day to see how he is progressing.
[2019-10-20] MEDS: MORPHINE 4 MG/ML 1ML VIAL/SYRINGE (J2270) IV PRN (09:43)
[2019-10-20] MEDS: BUPRENORPHINE/NALOXONE 8-2MG SUBLINGUAL TABLET(SUBOXONE) SL SCH ×2 (09:43→20:08)
[2019-10-20] MEDS: PANTOPRAZOLE 40MG VIAL (C9113 PER 1) IV SCH (09:43)
[2019-10-20] MEDS: D5W/LR 1,000 ML IV SCH ×2 (09:43→17:26)
--- NOTE | 2019-10-20 10:08 | IPN ---
DATE: 10/20/2019 Spencer is seen while rounding for the hospitalist for care rounds. He is having surgery today by Dr. Spears. The patient confirms this. No chest pain or shortness of breath. PHYSICAL EXAMINATION: Vital signs stable. Lungs clear. Heart regular rhythm. Abdomen soft. Mildly distended, diffusely tender. No peripheral edema. LABS: CBC unremarkable. Electrolytes unremarkable. IMPRESSION: Small bowel obstruction. PLAN: Surgical intervention today by Dr. Spears.
--- NOTE | 2019-10-20 12:19 | REP ---
Small bowel follow-through The procedure was performed under the direct supervision of Dr. Sood. The images were reviewed with Dr. Sood. The apprentice machinist outside film shows no organomegaly or pathological masses. The intestinal gas pattern is nonspecific. There is residual contrast in the colon from a previous CT scan. The tip of the NG tube is seen in the epigastric region. Liquid barium was administered and the barium column was followed through the small bowel to the level of the terminal ileum. Images obtained at the three hour mariely show an area of severe narrowing proximally with a dilated loop and severe narrowing, distally, at the jejunum. . This is likely due to adhesions. A delayed film performed at 8 o'clock this morning shows no progression of contrast beyond this point. Impression: High-grade obstruction in the jejunum with an area of severe narrowing proximally. Electronically Signed by CLARENCE Roberts 10/20/2019 09:04 A Electronically Signed by Ty Sood MD 10/20/2019 12:10 P
[2019-10-20] MEDS ORDERED: cefoTEtan DISODIUM 2 GM in D5W MINI-BAG PLUS 50 ML IV ONE (14:00)
[2019-10-20] MEDS ORDERED: MIDAZOLAM INJ 2MG/2ML VIAL (J2250 PER 1MG) As Ordered ONE (14:01)
[2019-10-20] MEDS ORDERED: fentaNYL 250 MCG/5 ML INJECTION (J3010) As Ordered ONE (14:01)
[2019-10-20] MEDS ORDERED: dexameTHASONE 4 MG/ML 1ML VIAL (J1100 PER 1MG) As Ordered ONE (14:01)
[2019-10-20] MEDS ORDERED: propofoL 200 MG/20 ML VIAL As Ordered ONE (14:02)
[2019-10-20] MEDS ORDERED: ceFAZolin 2 GM/D5W 50 ML IV BAG (J0690 PER 500MG) As Ordered ONE (14:02)
[2019-10-20] MEDS ORDERED: ROCURONIUM BROMIDE 50 MG/5 ML VIAL As Ordered ONE (14:02)
[2019-10-20] MEDS ORDERED: ONDANSETRON 4MG/2ML VIAL As Ordered ONE (14:02)
[2019-10-20] MEDS ORDERED: LIDOCAINE 2% 100MG/5ML SDV (FOR ANES.) As Ordered ONE (14:02)
[2019-10-20] MEDS ORDERED: BUPIVACAINE HCL 0.25% 30ML VIAL As Ordered ONE (14:09)
[2019-10-20] MEDS ORDERED: ACETAMINOPHEN 1000MG 100ML IV BTL (OFIRMEV) (J0131 PER 10MG) As Ordered ONE (14:58)
[2019-10-20] MEDS ORDERED: KETOROLAC 60 MG/2 ML VIAL As Ordered ONE (14:58)
[2019-10-20] MEDS ORDERED: cefoTEtan INJ 2GM VIAL (S0074 PER 500MG) As Ordered ONE (15:09)
[2019-10-20] MEDS ORDERED: SUGAMMADEX SODIUM 500 MG/5 ML VIAL (BRIDION) As Ordered ONE (15:20)
[2019-10-20] MEDS ORDERED: oxyCODONE 5MG TAB PO PRN (16:30)
[2019-10-20] MEDS ORDERED: fentaNYL 100 MCG/2 ML INJECTION (J3010) IV PRN (16:30)
[2019-10-20] MEDS ORDERED: ONDANSETRON 4MG/2ML VIAL IV PRN (16:30)
[2019-10-20] MEDS ORDERED: LR 1,000 ML IV SCH (16:30)
[2019-10-20] MEDS ORDERED: IBUPROFEN 600 MG TAB PO PRN (22:00)
[2019-10-21 02:00] VITALS: BP 129/80
[2019-10-21] MEDS: KETOROLAC 30 MG/ML 1ML VIAL IV PRN (02:34)
[2019-10-21 06:00] VITALS: BP 125/71
[2019-10-21] MEDS: PANTOPRAZOLE 40MG VIAL (C9113 PER 1) IV SCH (08:07)
[2019-10-21] MEDS: BUPRENORPHINE/NALOXONE 8-2MG SUBLINGUAL TABLET(SUBOXONE) SL SCH (08:07)
[2019-10-21 10:00] VITALS: BP 136/81
--- NOTE | 2019-10-21 11:58 | IPN ---
DATE: 10/21/2019 Spencer is seen on [facility] a hospitalist patient. Admitted with small bowel obstruction and underwent surgery last evening. Operative report is pending. The case was discussed with Dr. Spears. We expect the patient will probably be discharged later today if he tolerates p.o. well. The patient denies any chest pain, shortness of breath. Says abdominal pain is tolerable. PHYSICAL EXAMINATION: Vital signs stable. Lungs clear. Heart regular rhythm. Abdomen soft. Diffusely mildly tender. No peripheral edema. LABS: CBC, electrolytes unremarkable. IMPRESSION: Small bowel obstruction. PLAN: Starting clear liquids and if okay with surgery, I anticipate discharge later today.
[2019-10-21 14:00] VITALS: BP 127/74
[2019-10-21] MEDS ORDERED: ACET1TAB55 PO (15:24)
--- NOTE | 2019-10-21 16:20 | DSES ---
DATE OF ADMISSION: 10/17/2019 DATE OF DISCHARGE: PRINCIPAL DIAGNOSIS: Small bowel obstruction. PROCEDURE: Exploratory laparotomy, lysis of adhesions, by Dr. Spears, 10/20/2019. HISTORY: The patient admitted with small bowel obstruction. Details are in the history and physical admission. HOSPITAL COURSE: The patient admitted to a medical bed. Treated conservatively. Dr. Spears saw him on 10/20/2019. I assumed the patient's care on 10/20/2019. At that point, it was already decided he would going to the operating room. He underwent lysis of adhesions, exploratory laparoscopy. Responded well to this. Today, he is walking in the halls taking oral and wants to go home. LABS: Electrolytes today were unremarkable. CBC unremarkable. DISPOSITION: Discharge home. He will continue his previous Suboxone 8 mg twice a day and Tylenol as needed. Followup with primary care provider in a week. Followup with Dr. Spears in a week.
--- NOTE | 2019-10-26 13:13 | RO ---
DATE OF PROCEDURE: 10/20/2019 PREOPERATIVE DIAGNOSIS: Small bowel obstruction secondary to adhesions. POSTOPERATIVE DIAGNOSIS: Small bowel obstruction secondary to adhesions. PROCEDURE PERFORMED: Laparoscopy with lysis of adhesions and release of small bowel obstruction. SURGEON: Dr. Ahmet Spears BALL WORKER: ANESTHESIA: General. INDICATIONS FOR THE PROCEDURE: The patient is a 34-year-old man who is approximately 3 years postop from several procedures related to a perforated duodenal ulcer. He generally did well, but returned to the hospital on October 16 with sudden onset of upper abdominal pain with nausea and repeated vomiting. He was admitted with a diagnosis of small bowel obstruction. He initially seemed to improve, but when he was started on some liquids he developed vomiting again. An upper GI series/small bowel follow through study confirmed a very proximal jejunal obstruction. He is now for a laparoscopy and possible laparotomy with lysis of adhesions for a bowel obstruction. OPERATIVE PROCEDURE: The patient was brought to the operating room and placed on the table in a supine position. A nasogastric tube was in place. The patient was placed under general endotracheal anesthesia. The patient's abdomen was prepped and draped in a sterile fashion. 0.25% Marcaine was infiltrated at the trocar sites as needed. I elected to make the initial entry into the abdomen in the right lower quadrant slightly below the level of the umbilicus. A short transverse skin incision was made and a Veress needle was inserted. After a positive hanging drop test, the abdomen was inflated with carbon dioxide gas. A 5 mm port was placed over a 5 mm scope and this was advanced through the abdominal wall without difficulty. Initial examination showed no evidence of trocar injury. Inspection of the upper abdomen showed that there were some fairly dense adhesions of portions of the bowel along the midline in the epigastrium. A markedly dilated loop of proximal jejunum was noted in the left mid to upper abdomen. There appeared to be a band of fibrofatty tissue cutting across the loop of bowel and responsible for the obstruction. A second 5 mm trocar was placed low in the abdomen slightly to the right of the midline. The camera was shifted to this trocar site and a grasper was used to probe the area of the obstruction. There was a definite band of what appeared to be greater omentum which wrapped about the bowel and seemed to be the cause of the obstruction. A harmonic scalpel was used to cautiously divide this band with care not to injure the adjacent bowel. Once this had been completely divided, it was clear that this had been the cause of the obstruction. There was quite an indentation in the wall of the bowel, but the bowel appeared viable. A third trocar was placed in the left lower quadrant to facilitate further inspection and dissection. Working proximally, the ligament of Treitz was clearly identified and the bowel from that point down to the area of obstruction was quite dilated, but there was no evidence of any other obstruction. There were some fairly dense, filmy adhesions of the bowel just distal to the point of obstruction fixing this to the retroperitoneum and then wrapping around the transverse colon and fixing the jejunum into the right upper quadrant. These filmy adhesions were taken down readily using a combination of sharp dissection and dissection with the harmonic scalpel to free these segments of the jejunum and allow them to return to a more normal position. The transverse colon was identified in the right upper quadrant where it became quite firmly adherent to the anterior abdominal wall and then extending across the midline before it became free from the abdominal wall in the left upper quadrant and continued from there. Once the small bowel had been freed, I elected not to try to mobilize the transverse colon because of the degree of adhesion to the anterior abdominal wall. The area of the adhesiolysis was reinspected and there was no evidence of any bleeding. No sign of bowel injury was noted. The patient was returned to a flat position and then placed into a slight head down position. The abdomen was deflated and the trocars were all removed. The skin incisions were closed with buried #4-0 Vicryl and Steri-Strips. Some additional local anesthesia was infiltrated about the trocar sites. Because the obstruction had clearly been relieved, I instructed anesthesia to remove the nasogastric tube. The patient was awakened in the operating room, extubated and moved to the recovery room in stable condition.
== END 2019-10-21 16:31 | disposition home or self-care (01) | DRG 224 ==
LOC: M ED 23:08 → M ED INP 10-17 04:48 → ENRESERV 10-17 05:11 → M MSPAV 10-17 05:44
PROVIDERS: ADMIT Internal Medicine; ATTEND Family Medicine
PROC: 0DN84ZZ Release Small Intestine, Percutaneous Endoscopic Approach (ICD-10-PCS; principal; 2019-10-20 13:00)
DX: K56.52 Intestinal adhesions [bands] with complete obstruction (principal); F32.9 Major depressive disorder, single episode, unspecified; E87.6 Hypokalemia; F19.21 Other psychoactive substance dependence, in remission; Z79.899 Other long term (current) drug therapy; Z90.49 Acquired absence of other specified parts of digestive tract

== ENCOUNTER 2019-11-14 11:02 | Emergency (ER) | payer OTHER ==
[~2019-11-14] VITALS: Ht 177.8 cm; Wt 66.9 kg
[~2019-11-14 11:02] MED LIST changes: +ACET1TAB55 PO
[2019-11-14] MEDS ORDERED: LORazepam 2 MG/ML VIAL IV STA (12:26)
[2019-11-14 12:29] LABS: ALBUMIN 3.4 GM/DL (3.2-5.2); ALT/SGPT 92 U/L (12-78); BILIRUBIN,DIRECT < 0.1 MG/DL (0.0-0.2); BILIRUBIN,TOTAL 0.5 MG/DL (0.2-1.0); BLOOD UREA NITROGEN 15 MG/DL (7-18); CALCIUM LEVEL 8.5 MG/DL (8.5-10.1); CARBON DIOXIDE LEVEL 22 MEQ/L (21-32); CHLORIDE LEVEL 109 MEQ/L (98-107); GLOMERULAR FILTRATION RATE > 60.0 (>60); GLUCOSE, FASTING 106 MG/DL (70-100); LIPASE 141 U/L (73-393); POTASSIUM SERUM 4.4 MEQ/L (3.5-5.1); SODIUM LEVEL 139 MEQ/L (136-145)
[2019-11-14] MEDS ORDERED: NS 1,000 ML IV ONE (12:30)
[2019-11-14] MEDS ORDERED: ONDANSETRON 4MG/2ML VIAL IV ONE (12:30)
[2019-11-14] MEDS ORDERED: ONDANSETRON 4 MG TAB PO ONE (12:30)
[2019-11-14 12:35] LABS: APPEARANCE, URINE HAZY (CLEAR); BACTERIA, URINE AUTO NEGATIVE (NEGATIVE); BILIRUBIN, URINE AUTO NEGATIVE (NEGATIVE); BLOOD, URINE BLOOD NEGATIVE (NEGATIVE); COLOR, URINE YELLOW (YELLOW); GLUCOSE, URINE (UA) AUTO NEGATIVE (NEGATIVE); KETONE, URINE AUTO NEGATIVE (NEGATIVE); LEUKOCYTE ESTERASE, URINE AUTO NEGATIVE (NEGATIVE); MUCUS, URINE SMALL (NEGATIVE); NITRITE, URINE AUTO NEGATIVE (NEGATIVE); PROTEIN, URINE AUTO 1+ mg/dL (NEGATIVE); RBC, URINE AUTO 20 /HPF (0-3); SPECIFIC GRAVITY URINE AUTO 1.025 (1.002-1.035); SQUAMOUS EPITHELIAL CELL UR AU 0 /HPF (0-6); WBC, URINE AUTO 2 /HPF (0-3)
[2019-11-14 12:38] LABS: BASO % 0.2 % (0.0-1.0); EOS % 0.5 % (0.0-3.0); HEMATOCRIT 33.5 % (42.0-52.0); HEMOGLOBIN 11.9 g/dl (13.5-17.5); LYMPH # 1.6 10^3/uL (1.5-5.0); LYMPH % 27.2 % (24.0-44.0); MEAN CORPUSCULAR HEMOGLOBIN 28.9 pg (27.0-33.0); MEAN CORPUSCULAR HGB CONC 35.5 g/dl (32.0-36.5); MEAN CORPUSCULAR VOLUME 81.3 fl (80.0-96.0); MONO # 0.8 10^3/uL (0.0-0.8); MONO % 13.2 % (0.0-5.0); NEUTROPHILS # 3.4 10^3/uL (1.5-8.5); NEUTROPHILS % 58.7 % (36.0-66.0); PLATELET COUNT, AUTOMATED 198 10^3/uL (150-450); RED BLOOD COUNT 4.12 10^6/uL (4.30-6.10); WHITE BLOOD COUNT 5.7 10^3/uL (4.0-10.0)
[2019-11-14 14:15] LABS: AMPHETAMINES LEVEL URINE POSITIVE (NEGATIVE); BARBITURATES URINE NEGATIVE (NEGATIVE); BENZODIAZEPINES URINE NEGATIVE (NEGATIVE); CANNABINOIDS URINE NEGATIVE (NEGATIVE); COCAINE METABOLITE URINE NEGATIVE (NEGATIVE); METHADONE URINE NEGATIVE (NEGATIVE); OPIATES URINE POSITIVE (NEGATIVE); PHENCYCLIDINE URINE NEGATIVE (NEGATIVE)
[2019-11-14] MEDS ORDERED: MAGNESIUM CITRATE 300 ML BTL PO ONE (14:45)
--- NOTE | 2019-11-14 14:55 | REP ---
ABDOMEN SERIES: Three views. HISTORY: Abdomen pain. COMPARISON STUDY: October 19, 2019. FINDINGS: Upright chest radiograph is normal. There is no evidence of infiltrate or free subdiaphragmatic air. Monitoring electrodes are seen. The heart is not enlarged. Supine and erect views of the abdomen demonstrate air and stool in the proximal and distal colon without large bowel dilation. There are however multiple loops of air-filled mildly prominent small bowel throughout the central abdomen consistent with ileus. No significant air fluid level is seen. IMPRESSION: Ileus pattern in the bowel gas. Otherwise negative. No active disease in the chest. Electronically Signed by Jack Saldana MD 11/14/2019 03:00 P
[2019-11-14 15:06] VITALS: BP 147/80
== END 2019-11-14 15:07 | disposition home or self-care (01) ==
LOC: M ED 11:02
DX: K59.00 Constipation, unspecified (principal); Z87.19 Personal history of other diseases of the digestive system; B19.20 Unspecified viral hepatitis C without hepatic coma; Z79.899 Other long term (current) drug therapy
CPT/HCPCS: 36415; 74021; 80048; 80076; 80307; 83690; 85025; 93041; 96374; 96375; 99285; J2060; J2405

== ENCOUNTER 2019-11-21 23:15 | Emergency (ER) | payer OTHER ==
[~2019-11-21] VITALS: Ht 172.7 cm; Wt 70.0 kg
[2019-11-22 00:10] LABS: BASO % 0.3 % (0.0-1.0); EOS # 0.1 10^3/uL (0.0-0.5); EOS % 1.7 % (0.0-3.0); HEMATOCRIT 46.5 % (42.0-52.0); HEMOGLOBIN 15.7 g/dl (13.5-17.5); LYMPH % 25.9 % (24.0-44.0); MEAN CORPUSCULAR HEMOGLOBIN 28.3 pg (27.0-33.0); MEAN CORPUSCULAR HGB CONC 33.8 g/dl (32.0-36.5); MEAN CORPUSCULAR VOLUME 83.8 fl (80.0-96.0); MONO # 1.1 10^3/uL (0.0-0.8); MONO % 13.6 % (0.0-5.0); NEUTROPHILS # 4.6 10^3/uL (1.5-8.5); NEUTROPHILS % 58.1 % (36.0-66.0); PLATELET COUNT, AUTOMATED 295 10^3/uL (150-450); RED BLOOD COUNT 5.55 10^6/uL (4.30-6.10); WHITE BLOOD COUNT 7.9 10^3/uL (4.0-10.0)
[2019-11-22] MEDS ORDERED: ONDANSETRON 4MG/2ML VIAL IV ONE (00:30)
[2019-11-22] MEDS ORDERED: MORPHINE 4 MG/ML 1ML VIAL/SYRINGE (J2270) IV PRN (00:30)
[2019-11-22 00:32] LABS: ALBUMIN 3.6 GM/DL (3.2-5.2); BILIRUBIN,DIRECT 0.1 MG/DL (0.0-0.2); BILIRUBIN,TOTAL 0.4 MG/DL (0.2-1.0); TOTAL PROTEIN 8.2 GM/DL (6.4-8.2)
[2019-11-22] MEDS: GASTROGRAFIN SOLUTION 30ML PO SCH ×2 (00:55→01:10)
[2019-11-22 01:13] LABS: AMPHETAMINES LEVEL URINE POSITIVE (NEGATIVE); BARBITURATES URINE NEGATIVE (NEGATIVE); BENZODIAZEPINES URINE NEGATIVE (NEGATIVE); CANNABINOIDS URINE NEGATIVE (NEGATIVE); COCAINE METABOLITE URINE POSITIVE (NEGATIVE); METHADONE URINE NEGATIVE (NEGATIVE); OPIATES URINE POSITIVE (NEGATIVE); PHENCYCLIDINE URINE NEGATIVE (NEGATIVE)
[2019-11-22] MEDS ORDERED: ISOVUE-370 76% 100ML VIAL As Ordered ONE (02:22)
--- NOTE | 2019-11-22 02:46 | REPVR ---
PROCEDURE INFORMATION: Exam: CT Abdomen And Pelvis With Contrast Exam date and time: 11/22/2019 12:25 AM Age: 34 years old Clinical indication: Abdominal pain; Generalized; Additional info: Generalized abd pain TECHNIQUE: Imaging protocol: Computed tomography of the abdomen and pelvis with intravenous contrast. Radiation optimization: All CT scans at this facility use at least one of these dose optimization techniques: automated exposure control; mA and/or kV adjustment per patient size (includes targeted exams where dose is matched to clinical indication); or iterative reconstruction. Contrast material: ISO; Contrast volume: 100 ml; Contrast route: INTRAVENOUS (IV); Other contrast: Oral, ggraphin, 600; COMPARISON: CT ABD/PEL W/IV ORAL CONTRAS 10/17/2019 2:01 AM FINDINGS: Liver: The liver attenuation is 79 Hounsfield units and the spleen is 103 Hounsfield units. Gallbladder and bile ducts: The gallbladder is contracted with no stones. Pancreas: Normal. No ductal dilation. Spleen: Normal. No splenomegaly. Adrenals: Normal. No mass. Kidneys and ureters: Normal. No hydronephrosis. Stomach and bowel: Wall thickening of the pre-pyloric antrum and duodenal bulb with induration about the duodenal bulb. Mild stool and gas throughout much of the colon. Appendix: Partial visualization of a normal appendix. Intraperitoneal space: Unremarkable. No free air. No significant fluid collection. Vasculature: Unremarkable. No abdominal aortic aneurysm. Lymph nodes: Unremarkable. No enlarged lymph nodes. Bladder: Unremarkable as visualized. Reproductive: Unremarkable as visualized. Bones/joints: Unremarkable. No acute fracture. Soft tissues: Unremarkable. IMPRESSION: 1. Wall thickening of the pre-pyloric gastric antrum and duodenal bulb with induration about the duodenal bulb which may reflect pre-pyloric antral gastritis/duodenitis or PUD. 2. Otherwise negative CT abdomen/pelvis. Electronically signed by: Jake Newberry On 11/22/2019 02:45:59 AM
[2019-11-22] MEDS ORDERED: OMEP40CA97 PO (04:19)
[2019-11-22] MEDS ORDERED: CARA1TAB6 PO (04:19)
[2019-11-22] MEDS ORDERED: PEPC1TAB5 PO (04:19)
[2019-11-22] MEDS ORDERED: FAMOTIDINE 20 MG TAB PO ONE (04:30)
[2019-11-22] MEDS ORDERED: OMEPRAZOLE 20 MG CAP PO ONE (04:30)
[2019-11-22] MEDS ORDERED: GI COCKTAIL 50ML BTL(HYOSCYAMINE/MAALOX/LIDOCAINE VISCOUS)(1:3:1) PO ONE (04:30)
[2019-11-22] MEDS ORDERED: SUCRALFATE 1 GM TAB PO ONE (04:30)
[2019-11-22 04:33] VITALS: BP 132/70
== END 2019-11-22 04:35 | disposition home or self-care (01) ==
LOC: M ED 23:15
DX: K27.9 Peptic ulcer, site unspecified, unspecified as acute or chronic, without hemorrhage or perforation (principal); R11.2 Nausea with vomiting, unspecified; F19.10 Other psychoactive substance abuse, uncomplicated; F17.210 Nicotine dependence, cigarettes, uncomplicated; Z79.899 Other long term (current) drug therapy
CPT/HCPCS: 74177; 80047; 80076; 80307; 81001; 83690; 85025; 87086; 96374; 96375; 99284; J2270; J2405; Q9963; Q9967

== ENCOUNTER → 2020-04-27 | Outpatient (CLI) | payer OTHER ==
[~2020-04-27] MED LIST changes: +CARA1TAB6 PO; +OMEP40CA97 PO; +PANT40TA29 PO; -PANT40TA3 PO; +PEPC1TAB5 PO
[2020-04-27 13:47] LABS: APPEARANCE, URINE CLEAR (CLEAR); BACTERIA, URINE AUTO NEGATIVE (NEGATIVE); BILIRUBIN, URINE AUTO NEGATIVE (NEGATIVE); BLOOD, URINE BLOOD NEGATIVE (NEGATIVE); COLOR, URINE YELLOW (YELLOW); GLUCOSE, URINE (UA) AUTO NEGATIVE (NEGATIVE); KETONE, URINE AUTO NEGATIVE (NEGATIVE); LEUKOCYTE ESTERASE, URINE AUTO NEGATIVE (NEGATIVE); NITRITE, URINE AUTO NEGATIVE (NEGATIVE); PROTEIN, URINE AUTO NEGATIVE (NEGATIVE); RBC, URINE AUTO 0 /HPF (0-3); SPECIFIC GRAVITY URINE AUTO 1.013 (1.002-1.035); SQUAMOUS EPITHELIAL CELL UR AU 0 /HPF (0-6); UROBILINOGEN, URINE AUTO 0.2 mg/dL (0.0-2.0); WBC, URINE AUTO 0 /HPF (0-3)
[2020-04-27 13:52] LABS: BASO % 0.5 % (0.0-1.0); EOS # 0.3 10^3/uL (0.0-0.5); EOS % 5.7 % (0.0-3.0); HEMATOCRIT 40.9 % (42.0-52.0); HEMOGLOBIN 13.2 g/dl (13.5-17.5); LYMPH # 2.6 10^3/uL (1.5-5.0); LYMPH % 43.6 % (24.0-44.0); MEAN CORPUSCULAR HEMOGLOBIN 27.1 pg (27.0-33.0); MEAN CORPUSCULAR HGB CONC 32.3 g/dl (32.0-36.5); MONO # 0.6 10^3/uL (0.0-0.8); MONO % 9.6 % (0.0-5.0); NEUTROPHILS # 2.4 10^3/uL (1.5-8.5); NEUTROPHILS % 40.3 % (36.0-66.0); PLATELET COUNT, AUTOMATED 210 10^3/uL (150-450); RED BLOOD COUNT 4.87 10^6/uL (4.30-6.10)
[2020-04-27 14:47] LABS: ALBUMIN 3.4 GM/DL (3.2-5.2); ALT/SGPT 22 U/L (12-78); BILIRUBIN,TOTAL 0.3 MG/DL (0.2-1.0); BLOOD UREA NITROGEN 14 MG/DL (7-18); CALCIUM LEVEL 8.7 MG/DL (8.5-10.1); CARBON DIOXIDE LEVEL 28 MEQ/L (21-32); CHLORIDE LEVEL 105 MEQ/L (98-107); CREATININE FOR GFR 1.09 MG/DL (0.70-1.30); GLOMERULAR FILTRATION RATE > 60.0 (>60); GLUCOSE, FASTING 91 MG/DL (70-100); POTASSIUM SERUM 4.4 MEQ/L (3.5-5.1); SODIUM LEVEL 138 MEQ/L (136-145); TOTAL PROTEIN 7.4 GM/DL (6.4-8.2)
[2020-04-27 14:58] LABS: HEPATITIS B SURFACE ANTIBODY POSITIVE (POSITIVE)
[2020-04-27 15:08] LABS: HEPATITIS B SURFACE ANTIGEN NEGATIVE (NEGATIVE)
[2020-05-02 19:08] LABS: HEPATITIS A IgG TOTAL Positive (Negative)
== END ==
LOC: M LAB 12:29
PROVIDERS: ATTEND Physician Assistant Medical
DX: Z02.2 Encounter for examination for admission to residential institution (principal); B18.2 Chronic viral hepatitis C; B16.9 Acute hepatitis B without delta-agent and without hepatic coma; B15.9 Hepatitis A without hepatic coma

== ENCOUNTER → 2020-06-18 | Outpatient (CLI) | payer OTHER ==
[~2020-06-18] MED LIST changes: +BUPR150T4 PO; +BUPR300T92 PO; +FLUO10CA16 PO; +HYDR50TA70 PO; +NICO4LOZ34 PO; +QUET50TA3 PO; -QUET5TAB PO; +VITA200044 PO; +[UNRECOGNIZED DRUG - CODE] SQ
[2020-06-18 14:48] LABS: BASO # 0.1 10^3/uL (0.0-0.2); BASO % 0.8 % (0.0-1.0); EOS # 0.5 10^3/uL (0.0-0.5); EOS % 7.7 % (0.0-3.0); HEMATOCRIT 40.7 % (42.0-52.0); HEMOGLOBIN 13.2 g/dl (13.5-17.5); LYMPH # 2.3 10^3/uL (1.5-5.0); LYMPH % 37.5 % (24.0-44.0); MEAN CORPUSCULAR HEMOGLOBIN 27.9 pg (27.0-33.0); MEAN CORPUSCULAR HGB CONC 32.4 g/dl (32.0-36.5); MONO # 0.6 10^3/uL (0.0-0.8); MONO % 9.5 % (0.0-5.0); NEUTROPHILS # 2.7 10^3/uL (1.5-8.5); NEUTROPHILS % 44.2 % (36.0-66.0); PLATELET COUNT, AUTOMATED 223 10^3/uL (150-450); RED BLOOD COUNT 4.73 10^6/uL (4.30-6.10); WHITE BLOOD COUNT 6.1 10^3/uL (4.0-10.0)
[2020-06-18 15:15] LABS: ALBUMIN 3.7 GM/DL (3.2-5.2); BILIRUBIN,DIRECT 0.1 MG/DL (0.0-0.2); BILIRUBIN,TOTAL 0.3 MG/DL (0.2-1.0); PERCENT SATURATION 25.8 % (19.7-50.0)
[2020-06-18 15:25] LABS: FOLATE 10.1 NG/ML
[2020-06-20 17:22] LABS: ANTI-MITOCHONDRIAL ANTIBODY <20.0 Units (0.0-20.0); ANTI-SMOOTH MUSCLE ANTIBODY 9 Units (0-19); ANTINUCLEAR ANTIBODIES DIRECT Negative (Negative); LIVER-KIDNEY MICROSOMAL ABY <20.1 Units (0.0-20.0)
== END ==
LOC: M LAB 13:47
PROVIDERS: ATTEND Internal Medicine Gastroenterology
DX: K62.5 Hemorrhage of anus and rectum (principal)

== ENCOUNTER → 2020-06-25 | Outpatient (CLI) | payer OTHER | LOC: M LABSMTC 09:46 | PROVIDERS: ATTEND Anesthesiology | DX: Z01.812 Encounter for preprocedural laboratory examination (principal); Z11.52 Encounter for screening for COVID-19 ==

== ENCOUNTER 2020-06-28 07:18 | Day surgery (SDC) | payer OTHER ==
[~2020-06-28] VITALS: Ht 177.8 cm; Wt 83.0 kg
[~2020-06-28 07:18] MED LIST changes: +NS 1,000 ML IV ONE; -QUET50TA3 PO; +QUET5TAB PO
--- OUTSIDE RECORDS SUMMARY | 2020-06-28 07:20 | CCD | Continuity of Care Document ---
Author Author Spencer CASPER M.D. 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 Allergies, Adverse Reactions, Alerts Description No Known Drug Allergies Medications Active Medications SIG Qnty Indications Ordering Provide r Date Suboxone Injection 300/100MG monthly Unknown Trazodone HCL 150mg Tablets 1tab po qd Unknown Famotidine 40mg Tablets 1tab po qd Unknown Omeprazole 20mg Capsules DR 1cap po qd Unknown Sucralfate 1gm Tablets 1tab p o qid Unknown Prozac 20mg Capsules 1cap po qd Unknown Wellbutrin XL 300mg Tablets ER 24H R 1tab po qd w/150mg tab (450mg) Unknown Wellbutrin XL 150mg Tablets ER 24H R 1tab po qd w/300mg tab (450mg) Unknown Immunizations Description No Information Available Vital Signs Date Vital Result Comment 06/07/2020 10:49am BP Systolic 124 mmHg BP Diastolic 70 mmHg Height 71 inches 5'11" Weight 185.00 lb BMI (Body Mass Index) 25.8 kg/m2 [place] Body Weight 172 lb Weight 83.916 kg BSA (Body Surface Area) 2.04 m2 05/07/2017 10:39am BP Systolic 145 mmHg BP Diastolic 72 mmHg Height 70.5 inches 5'10.50" Weight 161.38 lb BMI (Body Mass Index) 22.8 kg/m2 [place] Body Weight 166 lb Weight 73.200 kg BSA (Body Surface Area) 1.92 m2 Results Description No Information Available Procedures Description No Information Available Medical Devices Description No Information Available Encounters Description No Information Available Assessments Date Code Description Provider 06/07/2020 R10.84 Generalized abdominal pain Maria Isabel Casper M.D. 06/07/2020 K59.00 Constipation, unspecified Susan Casper M.D. 06/07/2020 K62.5 Hemorrhage of anus and rectum David Casper M.D. 06/07/2020 R94.5 Abnormal results of liver functi on studies Chano Casper M.D. Plan of Treatment 06/07/2020 - Chano Casper M.D.* R10.84 Generalized abdominal pain * K59.00 Constipation, unspecified * K62.5 Hemorrhage of anus and rectum * R94.5 Abnormal results of liver function studies Functional Status Description No Information Available Mental Status Description No Information Available Referrals Refer to Reason for Referral Status Appt Date Chano Casper M.D. HX OF PERFORATED GASTRIC UL CER, SBO, AND RECENT COMPLAINTS OF BRB IN STOOL Scheduled 06/07/[address] [place] [address], [address] [place] [address] [phone]
--- OUTSIDE RECORDS SUMMARY | 2020-06-28 07:20 | CCD ---
Author Author [facility] Organization [facility] Address Unknown Phone Unavailable Care Team Providers Care Bulk Sealer Name Role Phone Dang Gray MD Unavailable Unavailable Dang Gray MD Unavailable Unavailable Dang Gray MD Unavailable Unavailable Dang Gray MD Unavailable Unavailable Dang Gray MD Unavailable Unavailable Dang Gray MD Unavailable Unavailable Dang Gray MD Unavailable Unavailable Dang Gray MD Unavailable Unavailable Dang Gray MD Unavailable Unavailable Dang Gray MD Unavailable Unavailable Dang Gray MD Unavailable Unavailable Dang Gray MD Unavailable Unavailable Dang Gray MD Unavailable Unavailable Dang Gray MD Unavailable Unavailable Dang Gray MD Unavailable Unavailable Dang Gray MD Unavailable Unavailable Dang Gray MD Unavailable Unavailable Dang Gray MD Unavailable Unavailable Dang Gray MD Unavailable Unavailable Dang Gray MD Unavailable Unavailable Dang Gray MD Unavailable Unavailable Dang Gray MD Unavailable Unavailable Dang Gray MD Unavailable Unavailable Dang Gray MD Unavailable Unavailable Dang Gray MD Unavailable Unavailable Dang Gray MD Unavailable Unavailable Dang Gray MD Unavailable Unavailable Dang Gray MD Unavailable Unavailable Dang Gray MD Unavailable Unavailable Dang Gray MD Unavailable Unavailable Dang Gray MD Unavailable Unavailable Dang Gray MD Unavailable Unavailable Dang Gray MD Unavailable Unavailable Dang Gray MD Unavailable Unavailable Dang Gray MD Unavailable Unavailable Dang Gray MD Unavailable Unavailable Dang Gray MD Unavailable Unavailable Dang Gray MD Unavailable Unavailable Dang Gray MD Unavailable Unavailable Dang Gray MD Unavailable Unavailable Dang Gray MD Unavailable Unavailable Dang Gray MD Unavailable Unavailable Dang Gray MD Unavailable Unavailable Dang Gray MD Unavailable Unavailable Dang Gray MD Unavailable Unavailable Dang Gray MD Unavailable Unavailable Dang Gray MD Unavailable Unavailable Dang Gray MD Unavailable Unavailable Dang Gray MD Unavailable Unavailable Dang Gray MD Unavailable Unavailable Dang Gray MD Unavailable Unavailable Dang Gray MD Unavailable Unavailable Dang Gray MD Unavailable Unavailable Dang Gray MD Unavailable Unavailable Dang Gray MD Unavailable Unavailable Dang Gray MD Unavailable Unavailable Dang Gray MD Unavailable Unavailable Dang Gray MD Unavailable Unavailable Dang Gray MD Unavailable Unavailable Dang Gray MD Unavailable Unavailable Dang Gray MD Unavailable Unavailable Dang Gray MD Unavailable Unavailable Dang Gray MD Unavailable Unavailable Dang Gray MD Unavailable Unavailable Dang Gray MD Unavailable Unavailable Dang Gray MD Unavailable Unavailable Dang Gray MD Unavailable Unavailable Dang Gray MD Unavailable Unavailable Dang Gray MD Unavailable Unavailable Dang Gray MD Unavailable Unavailable Dang Gray MD Unavailable Unavailable Dang Gray MD Unavailable Unavailable Dang Gray MD Unavailable Unavailable Dang Gray MD Unavailable Unavailable Dang Gray MD Unavailable Unavailable Dang Gray MD Unavailable Unavailable Dang Gray MD Unavailable Unavailable Dang Gray MD Unavailable Unavailable Dang Gray MD Unavailable Unavailable Dang Gray MD Unavailable Unavailable Dang Gray MD Unavailable Unavailable Dang Gray MD Unavailable Unavailable Dang Gray MD Unavailable Unavailable Dang Gray MD Unavailable Unavailable Dang Gray MD Unavailable Unavailable Dang Gray MD Unavailable Unavailable Dang Gray MD Unavailable Unavailable Dang Gray MD Unavailable Unavailable Dang Gray MD Unavailable Unavailable VaughnOlinda Unavailable Jenifer Macedo Unavailable Re-disclosure Warning The records that you are about to access may contain information from federally-assisted alcohol or drug abuse programs. If such information is present, then the following federally mandated warning applies: This information has been disclosed to you from records protected by federal confidentiality rules (42 CFR part 2). The federal rules prohibit you from making any further disclosure of this information unless further disclosure is expressly permitted by the written consent of the person to whom it pertains or as otherwise permitted by 42 CFR part 2. A general authorization for the release of medical or other information is NOT sufficient for this purpose. The Federal rules restrict any use of the information to criminally investigate or prosecute any alcohol or drug abuse patient.The records that you are about to access may contain highly sensitive health information, the redisclosure of which is protected by Article 27-F of the [facility] Public Health law. If you continue you may have access to information: Regarding HIV / AIDS; Provided by facilities licensed or operated by the [facility] Office of Mental Health; or Provided by the [facility] Office for People With Developmental Disabilities. If such information is present, then the following [facility] mandated warning applies: This information has been disclosed to you from confidential records which are protected by state law. State law prohibits you from making any further disclosure of this information without the specific written consent of the person to whom it pertains, or as otherwise permitted by law. Any unauthorized further disclosure in violation of state law may result in a fine or prison sentence or both. A general authorization for the release of medical or other information is NOT sufficient authorization for further disc losure. Family History Family Member Name Family Member Gender Family Member Status Date o f Status Description Data Source(s) Unknown Male Problem [facility] ([facility]) Unknown Female Problem [facility] ([facility]) Encounters Encounter Providers Location Date Indications Data Source(s ) [id number]"Psychotherapy Attender: Jenifer Macedo [facility] 11/28/2019 12:00:00 PM EDT - 11/28/2019 12:00:00 PM EDT [facility] ([facility]) Attender: Jenifer Macedo 11/28/2019 12:00:00 AM E DT [facility] ([facility]) TEMPMHCTelemed 30" Psychotherapy [facility] 11/18/2019 03:00:00 AM EDT - 11/18/2019 03:00:00 AM EDT [facility] ([facility]) Attender: Jenifer Macedo 11/18/2019 12:00:00 AM E DT [facility] ([facility]) TEMPMHCTelemed 30" Psychotherapy Attender: Olinda Mendes [facility] 11/09/2019 11:00:00 AM EDT - 11/09/2019 11:00:00 AM EDT [facility] ([facility]) Attender: Olinda Mendes 11/09/2019 12:00:00 AM EDT [facility] ([facility]) Outpatient Attender: Homar Gray MD 11/08/2019 07:57:12 PM EDT [facility] Outpatient Attender: Homar Gray MD 11/04/2019 12:02:11 AM EDT [facility] Outpatient Attender: Homar Gray MD 11/03/2019 09:10:00 AM EDT [facility] 10/27/2019 05:05:00 AM EDT [facility] Medications Medication Brand Name Start Date Product Form Dose Route Admi nistrative Instructions Pharmacy Instructions Status Indications Reaction Description Data Source(s) 8-2 mg 12/01/2019 12:00:00 AM EDT film [address] ONE FILM UNDER THE TONGUE TWICE A DAY, MAXIMUM DAILY DOSE = [address] ONE FILM UNDER THE TONGUE TWICE A DAY, MAXIMUM DAILY DOSE = 2 FILMS SOLD: 12/01/2019 [facility] 40 mg 11/22/2019 12:00:00 AM EDT capsule,delayed release (DR/EC) 30 TAKE ONE CAPSULE BY MOUTH EVERY DAY TAKE ONE CAPSULE BY MOUTH EVERY DAY SOLD: 11/23/2019 [facility] Famotidine 20 MG Oral Tablet FAMOTIDINE 11/22/2019 12:00:00 AM EDT tab let 30 TAKE ONE TABLET BY MOUTH EVERY DAY TAKE ONE TABLET BY MOUTH EVERY DAY SOLD: 11/23/2019 [facility] 1 gram 11/22/2019 12:00:00 AM EDT tablet 120 TAKE ONE TABLET BY MOUTH FOUR TIMES A DAY TAKE ONE TABLET BY MOUTH FOUR TIMES A DAY SOLD: 11/23/2019 [facility] 8-2 mg 11/03/2019 12:00:00 AM EDT film [address] ONE FILM UNDER THE TONGUE TWICE A DAY, MAXIMUM DAILY DOSE = [address] ONE FILM UNDER THE TONGUE TWICE A DAY, MAXIMUM DAILY DOSE = 2 FILMS SOLD: 11/03/2019 [facility] 200 mg 10/13/2019 12:00:00 AM EDT tablet sustained-releas e 12 hr 60 TAKE ONE TABLET BY MOUTH TWICE A DAY TAKE ONE TABLET BY MOUTH TWICE A DAY SOLD: 10/15/2019 [facility] Trazodone Hydrochloride 100 MG Oral Tablet TRAZODONE HCL 10/13/2019 12:00:00 AM EDT tablet 60 TAKE TWO TABLETS BY MOUTH AT BEDTIME TAKE TWO TABLETS BY MOUTH EVERY DAY AT BEDTIME SOLD: 10/15/2019 [facility] 40 mg 10/13/2019 12:00:00 AM EDT capsule 60 TAKE TWO CAPSULES BY MOUTH EVERY DAY TAKE TWO CAPSULES BY MOUTH EVERY DAY SOLD: 10/15/2019 [facility] 8-2 mg 10/06/2019 12:00:00 AM EDT film [address] ONE FILM UNDER THE TONGUE TWICE A DAY, MAXIMUM DAILY DOSE = [address] ONE FILM UNDER THE TONGUE TWICE A DAY, MAXIMUM DAILY DOSE = 2 FILMS SOLD: 10/06/2019 [facility] 8-2 mg 09/08/2019 12:00:00 AM EDT film [address] ONE FILM UNDER THE TONGUE TWICE A DAY MAXIMUM DAILY DOSE = [address] ONE FILM UNDER THE TONGUE TWICE A DAY MAXIMUM DAILY DOSE = 2 FILMS SOLD: 09/08/2019 [facility] 60 mg 09/07/2019 12:00:00 AM EDT tablet 30 TAKE ONE TABLET BY MOUTH EVERY DAY TAKE ONE TABLET BY MOUTH EVERY DAY SOLD: 09/08/2019 [facility] 200 mg 09/06/2019 12:00:00 AM EDT tablet sustained-releas e 12 hr 60 TAKE ONE TABLET BY MOUTH TWICE A DAY TAKE ONE TABLET BY MOUTH TWICE A DAY SOLD: 09/07/2019 [facility] Trazodone Hydrochloride 100 MG Oral Tablet TRAZODONE HCL 09/06/2019 12:00:00 AM EDT tablet 60 TAKE TWO TABLETS BY MOUTH EV ROB DAY AT BEDTIME TAKE TWO TABLETS BY MOUTH EVERY DAY AT BEDTIME SOLD: 09/07/2019 [facility] Insurance Providers Payer name Policy type / Coverage type Policy ID Covered green party ID Covered green party's relationship to william Policy William Plan Information [facility] MCDO [id number] SP [id number] [facility] MCDO [id number] SP [id number] [facility](MCA[facility]) O [id number] S [id number] Self Pay P UNAVAILABLE S UNAVAILA BLE [facility] ANASTASIYA [id number] SP [id number] [facility] COMMUNITY [id number] Unemploye d [id number] [facility] [id number] SP [id number] [facility] MCDO [id number] SP [id number] [facility] [id number] SP [id number] [facility] Health Maintenance Organization (HMO) [id number] Self [id number] [facility] MCDO [id number] SP [id number] [facility] Health Maintenance Organization (HMO) [id number] Self [id number] [facility] Health Maintenance Organization (HMO) [id number] Self [id number] [facility] Health Maintenance Organization (HMO) [id number] Self [id number] [facility]) O [id number] S [id number] [facility] [id number] SP [id number] MEDICAID [id number] SP [id number] [facility] [id number] SP [id number] MEDICAID [id number] SP [id number] SELF PAY UNAVAILABLE SP UNAVAILA BLE Problems, Conditions, and Diagnoses Code Display Name Description Problem Type Effective Dates Data Source(s) F11.20 Opioid dependence, uncomplicated Opioid Use Disorder, Moderate Condition 11/28/2019 12:00:00 AM EDT [facility] ([facility]) F32.9 Major depressive disorder, single episod e, unspecified Unspecified depressive Disorder Condition 11/28/2019 12:00:00 AM EDT [facility] ([facility]) Surgeries/Procedures Procedure Description Date Indications Data Source(s) [id number]"Psychotherapy 0 12:00:00 AM EDT - 11/28/2019 12:00:00 AM EDT [facility] ([facility]) [id number]"Psychotherapy 11/28/2019 12:00:00 AM EDT [facility] ([facility]) TEMPMHCTelemed 30" Psychotherapy 12:00:00 AM EDT - 11/18/2019 12:00:00 AM EDT [facility] ([facility]) TEMPMHCTelemed 30" Psychotherapy 11/18/2019 12:00:00 A M EDT [facility] ([facility]) TEMPMHCTelemed 30" Psychotherapy 12:00:00 AM EDT - 11/09/2019 12:00:00 AM EDT [facility] ([facility]) TEMPMHCTelemed 30" Psychotherapy 11/09/2019 12:00:00 A M EDT [facility] ([facility]) Social History Code Duration Value Status Description Data Source(s ) Smoking 11/28/2019 12:00:00 AM EDT Unknown if ever smoked comp leted Unknown if ever smoked [facility] ([facility]) Smoking 11/18/2019 12:00:00 AM EDT Unknown if ever smoked comp leted Unknown if ever smoked [facility] ([facility]) Smoking 11/09/2019 12:00:00 AM EDT Unknown if ever smoked comp leted Unknown if ever smoked [facility] ([facility]) Vital Signs ID Date Data Source UNK Name Value Range Interpretation Code Description Data Source(s) Body surface area Derived from formula 2.04 m2 2.04 m2 [facility] ([facility], ) Body weight 83.916 kg 83.916 kg [facility] ([facility], ) [place] body weight 172 [lb_av] 172 [lb_av] MEDEN T ([facility], ) Body mass index (BMI) [Ratio] 25.8 kg/m2 25.8 k g/m2 [facility] Body weight 185.00 [lb_av] 185.00 [lb_av] ASTRID Terrell ([facility], ) Body height 71 [in_i] 71 [in_i] MARCOS ([facility], ) 5'11" Diastolic blood pressure 70 mm[Hg] 70 mm[Hg] MARCOS ([facility], ) Systolic blood pressure 124 mm[Hg] 124 mm[Hg] Lenny TEMPLE ([facility], )
[2020-06-28] MEDS ORDERED: LIDOCAINE 2% 100MG/5ML SDV (FOR ANES.) As Ordered ONE (07:23)
[2020-06-28] MEDS ORDERED: propofoL 200 MG/20 ML VIAL As Ordered ONE ×2 (07:23→10:22)
[2020-06-28] MEDS ORDERED: fentaNYL 100 MCG/2 ML INJECTION (J3010) As Ordered ONE (10:01)
--- NOTE | 2020-06-28 10:53 | ROOR ---
Patient Name: Spencer Arreguin Procedure Date: 06/28/2020 10:03 AM Date of : 1985 Age: 35 Room: [facility] Gender: Male Note Status: Finalized Procedure: Upper GI endoscopy Indications: Suspected stenosis of the duodenum, Follow-up of duodenal stenosis Providers: Chano Benton MD Referring MD: Carter Romero Requesting Provider: Medicines: Monitored Anesthesia Care Complications: No immediate complications. Procedure: Pre-Anesthesia Assessment: - Prior to the procedure, a History and Physical was performed, and patient medications and allergies were reviewed. The patient is competent. The risks and benefits of the procedure and the sedation options and risks were discussed with the patient. All questions were answered and informed consent was obtained. Patient identification and proposed procedure were verified by the physician, the nurse and the anesthesiologist in the procedure room. Mental Status Examination: alert and oriented. Airway Examination: normal oropharyngeal airway and neck mobility. Respiratory Examination: clear to auscultation. CV Examination: normal. Prophylactic Antibiotics: The patient does not require prophylactic antibiotics. Prior Anticoagulants: The patient has taken no previous anticoagulant or antiplatelet agents. ASA Grade Assessment: III - A patient with severe systemic disease. After reviewing the risks and benefits, the patient was deemed in satisfactory condition to undergo the procedure. The anesthesia plan was to use monitored anesthesia care (MAC). Immediately prior to administration of medications, the patient was re-assessed for adequacy to receive sedatives. The heart rate, respiratory rate, oxygen saturations, blood pressure, adequacy of pulmonary ventilation, and response to care were monitored throughout the procedure. The physical status of the patient was re-assessed after the procedure. The Endoscope was introduced through the mouth, and advanced to the second part of duodenum. The upper GI endoscopy was accomplished without difficulty. The patient tolerated the procedure well. Findings: The examined esophagus was normal. The Z-line was regular and was found 42 cm from the incisors. Patchy moderate inflammation characterized by congestion (edema) and granularity was found in the gastric body and in the gastric antrum. Biopsies were taken with a cold forceps for Helicobacter pylori testing. Verification of patient identification for the specimen was done by the physician and nurse using the patient's name, date and medical record number. Estimated blood loss was minimal. An acquired benign-appearing, intrinsic mild stenosis was found in the first portion of the duodenum and was traversed. Biopsies were taken with a cold forceps for histology. Impression: - Normal esophagus. - Z-line regular, 42 cm from the incisors. - Gastritis. Biopsied. - Acquired duodenal stenosis. Biopsied. Recommendation: - Patient has a contact number available for emergencies. The signs and symptoms of potential delayed complications were discussed with the patient. Return to normal activities tomorrow. Written discharge instructions were provided to the patient. - Chopped diet and high fiber diet. - Continue present medications. - Use Protonix (pantoprazole) 40 mg PO twice daily - to be taken in morning (1/2 hour before breakfast) and at bedtime ( atleast 3 hours after last meal) for 6 weeks. - No ibuprofen, naproxen, or other non-steroidal anti-inflammatory drugs. - Await pathology results. - Telephone GI clinic for pathology results in 2 weeks. - Return to GI clinic if persistent symptoms or new symptoms. - Return to primary care physician. Procedure Code(s): --- Professional --- 26622, Esophagogastroduodenoscopy, flexible, transoral; with biopsy, single or multiple Diagnosis Code(s): --- Professional --- K29.70, Gastritis, unspecified, without bleeding K31.5, Obstruction of duodenum CPT copyright 2019 [employer]. All rights reserved. The codes documented in this report are preliminary and upon ingot car operator review may be revised to meet current compliance requirements. Chano Benton MD Chano Benton MD 06/28/2020 10:52:29 AM Electronically signed by Chano Benton MD Number of Addenda: 0 Note Initiated On: 06/28/2020 10:03 AM Estimated Blood Loss: Estimated blood loss was minimal.
--- NOTE | 2020-06-28 10:55 | ROOR ---
Patient Name: Spencer Arreguin Procedure Date: 06/28/2020 10:05 AM Date of : 1985 Age: 35 Room: [facility] Gender: Male Note Status: Finalized Procedure: Colonoscopy Indications: Hematochezia Providers: Chano Benton MD Referring MD: Carter Romero Requesting Provider: Medicines: Monitored Anesthesia Care Complications: No immediate complications. Procedure: Pre-Anesthesia Assessment: - Prior to the procedure, a History and Physical was performed, and patient medications and allergies were reviewed. The patient is competent. The risks and benefits of the procedure and the sedation options and risks were discussed with the patient. All questions were answered and informed consent was obtained. Patient identification and proposed procedure were verified by the physician, the nurse and the anesthesiologist in the procedure room. Mental Status Examination: alert and oriented. Airway Examination: normal oropharyngeal airway and neck mobility. Respiratory Examination: clear to auscultation. CV Examination: normal. Prophylactic Antibiotics: The patient does not require prophylactic antibiotics. Prior Anticoagulants: The patient has taken no previous anticoagulant or antiplatelet agents. ASA Grade Assessment: III - A patient with severe systemic disease. After reviewing the risks and benefits, the patient was deemed in satisfactory condition to undergo the procedure. The anesthesia plan was to use monitored anesthesia care (MAC). Immediately prior to administration of medications, the patient was re-assessed for adequacy to receive sedatives. The heart rate, respiratory rate, oxygen saturations, blood pressure, adequacy of pulmonary ventilation, and response to care were monitored throughout the procedure. The physical status of the patient was re-assessed after the procedure. The Colonoscope was introduced through the anus and advanced to the terminal ileum, with identification of the appendiceal orifice and IC valve. The colonoscopy was performed without difficulty. The patient tolerated the procedure well. The quality of the bowel preparation was good. The terminal ileum, ileocecal valve, appendiceal orifice, and rectum were photographed. Scope insertion time was 2 minutes. Scope withdrawal time was 8 minutes. The total duration of the procedure was 10 minutes. Findings: The perianal and digital rectal examinations were normal. The terminal ileum appeared normal. Normal mucosa was found in the entire colon. Non-bleeding external and internal hemorrhoids were found during retroflexion. The hemorrhoids were medium-sized. Impression: - The examined portion of the ileum was normal. - Normal mucosa in the entire examined colon. - Non-bleeding external and internal hemorrhoids. - No specimens collected. Recommendation: - Patient has a contact number available for emergencies. The signs and symptoms of potential delayed complications were discussed with the patient. Return to normal activities tomorrow. Written discharge instructions were provided to the patient. - High fiber diet. - Continue present medications. - Repeat colonoscopy at age 51 for screening purposes. - Follow the recommendations as per the other procedure note. - Return to primary care physician. Procedure Code(s): --- Professional --- 66635, Colonoscopy, flexible; diagnostic, including collection of specimen(s) by brushing or washing, when performed (separate procedure) Diagnosis Code(s): --- Professional --- K64.8, Other hemorrhoids K92.1, Melena (includes Hematochezia) CPT copyright 2019 [employer]. All rights reserved. The codes documented in this report are preliminary and upon middleware engineer review may be revised to meet current compliance requirements. Chano Benton MD Chano Benton MD 06/28/2020 10:55:17 AM Electronically signed by Chano Benton MD Number of Addenda: 0 Note Initiated On: 06/28/2020 10:05 AM Estimated Blood Loss: Estimated blood loss: none.
[2020-06-28 11:00] VITALS: BP 128/61
== END 2020-06-28 11:13 | disposition home or self-care (01) ==
LOC: M OPP 07:18
PROVIDERS: ATTEND Internal Medicine Gastroenterology
DX: K92.1 Melena (principal); K31.5 Obstruction of duodenum; K64.8 Other hemorrhoids; D13.39 Benign neoplasm of other parts of small intestine; K29.70 Gastritis, unspecified, without bleeding; R12 Heartburn; B19.20 Unspecified viral hepatitis C without hepatic coma; F41.9 Anxiety disorder, unspecified; F32.9 Major depressive disorder, single episode, unspecified; F10.20 Alcohol dependence, uncomplicated; F19.20 Other psychoactive substance dependence, uncomplicated; Z87.891 Personal history of nicotine dependence; Z79.899 Other long term (current) drug therapy; Z80.8 Family history of malignant neoplasm of other organs or systems
CPT/HCPCS: 43239; 45378; 88305; J3010